=== PATIENT | male | born 1965 | race African-American/Black ===

== ENCOUNTER 2016-12-21 08:52 | Inpatient (IN) | payer OTHER ==
[2016-12-21 09:43] VITALS: BMI 31.0
--- NOTE | 2016-12-21 11:39 | HP ---
Admission ROS [facility] - [facility] Chief Complaint: I am here for rehab Allergies/Adverse Reactions: Allergies Allergy/AdvReac Type Severity Reaction Status Date / Time chicken derived Allergy Intermediate Rash Verified 12/21/16 11:04 Penicillins Allergy Intermediate Rash Verified 12/17/14 13:48 History of Present Illness: pt is a 51yr old male who was at a detox facility 12/15-12/20 2016 and is here now for rehab tx. Exam Limitations: No Limitations - Ebola screening Have you traveled outside of the country in the last 21 days: No Have you had contact with anyone from an Ebola affected area: No Have you been sick,other than usual withdrawal symptoms: No Do you have a fever: No - Review of Systems Constitutional: Changes in sleep EENT: reports: No Symptoms Reported Respiratory: reports: No Symptoms reported Cardiac: reports: No Symptoms Reported GI: reports: No Symptoms Reported : reports: No Symptoms Reported Musculoskeletal: reports: Back Pain Integumentary: reports: Other (chronic dermatities) Neuro: reports: Headache Endocrine: reports: No Symptoms Reported Hematology: reports: No Symptoms Reported Psychiatric: reports: Judgement Intact, Mood/Affect Appropiate, Orientated x3, Agitated, Anxious Other Systems: Reviewed and Negative Patient History - Patient Medical History Hx Anemia: No Hx Asthma: No Hx Chronic Obstructive Pulmonary Disease (COPD): No Hx Cancer: No Hx Cardiac Disorders: No Hx Congestive Heart Failure: No Hx Hypertension: No Hx Hypercholesterolemia: No Hx Pacemaker: No HX Cerebrovascular Accident: No Hx Seizures: Yes (alcohol related x2-last episode was in 2002) Hx Dementia: No Hx Diabetes: No Hx Gastrointestinal Disorders: No Hx Liver Disease: No Hx Genitourinary Disorders: No Hx Sexually Transmitted Disorders: No Hx Renal Disease (ESRD): No Hx Thyroid Disease: No Hx Human Immunodeficiency Virus (HIV): No (denies) Hx Hepatitis C: No (denies) Hx Depression: No Hx Suicide Attempt: No (denies) Hx Bipolar Disorder: No Hx Schizophrenia: No - Patient Surgical History Past Surgical History: No Hx Neurologic Surgery: No Hx Cataract Extraction: No Hx Cardiac Surgery: No Hx Lung Surgery: No Hx Breast Surgery: No Hx Breast Biopsy: No Hx Abdominal Surgery: No Hx Appendectomy: No Hx Cholecystectomy: No Hx Genitourinary Surgery: No Hx Section: No Hx Orthopedic Surgery: No Anesthesia Reaction: No - PPD History Previous Implant?: Yes Documented Results: Negative w/o proof PPD to be Administered?: Yes - Reproductive History Patient is a Female of Child Bearing Age (11 -55 yrs old): No - Smoking Cessation Smoking history: Current every day smoker Have you smoked in the past 12 months: Yes Aproximately how many cigarettes per day: 3 Cigars Per Day: 6 Hx Chewing Tobacco Use: No Initiated information on smoking cessation: Yes 'Breaking Loose' booklet given: 12/21/16 - Substance & Tx. History Hx Alcohol Use: Yes Hx Substance Use: Yes Substance Use Type: Alcohol, Cocaine Hx Substance Use Treatment: Yes (last detox [facility] 12/15-12/20) - Substances Abused Alcohol Route: Oral Frequency: Daily Amount used: 2 6pk beer Age of first use: 12 Date of Last Use: 12/21/16 Cocaine Route: Smoking Frequency: Daily Amount used: $50 Age of first use: 24 Date of Last Use: 12/20/16 Family Disease History - Family Disease History Family History: Denies Family Disease History: Other: Father () Admission Physical Exam [facility] - Vital Signs Vital Signs: Vital Signs - 24 hr 12/21/16 09:40 Temperature 97.0 F L Pulse Rate 73 Respiratory 18 Rate Blood Pressure 134/73 - Physical General Appearance: Yes: Within Normal Limits, Appropriately Dressed, Anxious HEENTM: Yes: Hearing grossly Normal, Normal ENT Inspection, Normal Voice Respiratory: Yes: Lungs Clear, Normal Breath Sounds, No Respiratory Distress Neck: Yes: No masses,lesions,Nodules Breast: Yes: Within Normal Limits Cardiology: Yes: Regular Rhythm, Regular Rate, S1, S2 Abdominal: Yes: Normal Bowel Sounds Genitourinary: Yes: Within Normal Limits Back: Yes: Normal Inspection Musculoskeletal: Yes: full range of Motion, Back pain Extremities: Yes: Normal Capillary Refill, Normal Inspection, Normal Range of Motion Neurological: Yes: Fully Oriented, Alert, Normal Response Integumentary: Yes: Normal Color, Other (dermatities to scalp) Lymphatic: Yes: Within Normal Limits - Diagnostic (1) Alcohol dependence Current Visit: No Status: Chronic (2) Cocaine dependence Current Visit: No Status: Chronic (3) Seborrheic eczema of scalp Current Visit: Yes Status: Chronic (4) Nicotine dependence Current Visit: Yes Status: Chronic Qualifiers: Nicotine product type: cigarettes Substance use status: uncomplicated Qualified Code(s): F17.210 - Nicotine dependence, cigarettes, uncomplicated Cleared for Admission [facility] - Detox or Rehab [facility] Level of Care: Medically Managed Claeared for Rehab Admission: Yes [facility] Breath Alcohol Content Breath Alcohol Content: 0.012 Urine Drug Screen - Results Drug Screen Negative: No Urine Drug Screen Results: TESSIE-Cocaine, BZO-Benzodiazepines
[2016-12-21] MEDS ORDERED: MAGNESIUM HYDROX 2400MG/30ML ORAL SUSPENSION 30 ML CUP PO PRN (11:43)
[2016-12-21] MEDS ORDERED: IBUPROFEN 400 MG TABLET (FP) PO PRN (11:43)
[2016-12-21] MEDS ORDERED: MAGNESIUM CITRATE 300 ML BOTTLE PO PRN (11:43)
[2016-12-21] MEDS ORDERED: guaiFENesin/D-METHORPHAN HB 10 ML UNIT-DOSE CUPS PO PRN (11:43)
[2016-12-21] MEDS ORDERED: hydrOXYzine PAMOATE 50 MG CAPSULE (FP) PO PRN (11:43)
[2016-12-21] MEDS ORDERED: NICOTINE POLACRILEX 2 MG GUM BUC PRN (11:43)
[2016-12-21] MEDS ORDERED: P-EPHED 60MG/TRIPROLIDI 2.5MG TABLET PO PRN (11:43)
[2016-12-21] MEDS ORDERED: ACETAMINOPHEN 325 MG TABLET (FP) PO PRN (11:43)
[2016-12-21] MEDS ORDERED: MENTHOL/PHENOL 1 EACH UD MM PRN (11:43)
[2016-12-21] MEDS ORDERED: LOPERAMIDE HCL 2 MG CAPSULE PO PRN (11:43)
[2016-12-21] MEDS ORDERED: MAG HYDROX/AL HYDROX/SIMETH 30 ML UNIT-DOSE CUP PO PRN (11:43)
[2016-12-21] MEDS ORDERED: SELENIUM SULFIDE 2.5% LOTION 4 OZ. TP SCH (11:45)
[2016-12-21] MEDS ORDERED: FLUOCINONIDE 0.05% TOP OINT (60 GM TUBE) TP SCH (11:45)
[2016-12-21] MEDS ORDERED: TUBERCULIN PPD 5 TU/0.1ML VIAL ID ONE (14:15)
[2016-12-21] MEDS: FLUOCINONIDE 0.05% TOP OINT (60 GM TUBE) TP SCH ×3 (14:28→23:31)
[2016-12-21 15:21] LABS: ALBUMIN 4.1 g/dl (3.4-5.0); ANION GAP 7 (8-16); BILIRUBIN,TOTAL 0.4 mg/dL (0.2-1.0); CALCIUM 8.8 mg/dL (8.5-10.1); CO2 31 mmol/L (21-32); GLUCOSE,RANDOM 85 mg/dL (74-106); TOT PROT 7.2 g/dl (6.4-8.2)
[2016-12-21 15:25] LABS: ALK PHOS 73 U/L (45-117); CREATININE 0.9 mg/dL (0.7-1.3); SGOT/AST 23 U/L (15-37); SGPT/ALT 34 U/L (12-78)
[2016-12-21 15:26] LABS: MCH 31.1 pg (25.7-33.7); MCHC 33.1 g/dl (32.0-35.9); MEAN CELL VOLUME 93.8 fl (80-96); MEAN PLT VOLUME 8.4 fl (7.5-11.1); PLATELET COUNT 255 K/MM3 (134-434); RDW 15.1 % (11.9-15.9); WHITE BLOOD COUNT 5.6 K/mm3 (4.0-10.0)
[2016-12-21 22:02] LABS: URINE APPEARANCE CLEAR; URINE BILIRUBIN NEGATIVE (NEGATIVE); URINE BLOOD NEGATIVE (NEGATIVE); URINE COLOR COLORLESS; URINE GLUCOSE (UA) NEGATIVE (NEGATIVE); URINE KETONE NEGATIVE (NEGATIVE); URINE LEUK ESTERASE NEGATIVE (NEGATIVE); URINE NITRITE NEGATIVE (NEGATIVE); URINE PROTEIN NEGATIVE (NEGATIVE); URINE UROBILINOGEN NEGATIVE mg/dL (0.2-1.0)
[2016-12-21] MEDS: THIAMINE HCL 100 MG TABLET (FP) PO SCH (23:32)
--- NOTE | 2016-12-22 06:42 | HP ---
Psychiatrist Admission - Data Date of interview: 12/22/16 Admission source: Self-referred Identifying data: This is the first [facility] admission for this 51 years old Black male, unemployed with no source of income, homeless Medical History: Signnificant for Seborrheic dermatitis and history of Alcohol- related seizure. Smokes 3 cigarettes daily Psychiatric History: Denies history of previous psychiatric treatment Physical/Sexual Abuse/Trauma History: Denies history of emotional, physical or sexual abuse as well as DV relationship. No service Additional Comment: Reports one previous misdemeanor arrests. No probation Vital Signs: Vital Signs - 24 hr 12/21/16 12/22/16 12/22/16 09:40 00:30 03:30 Temperature 97.0 F L Pulse Rate 73 Respiratory 18 18 18 Rate Blood Pressure 134/73 Allergies/Adverse Reactions: Allergies Allergy/AdvReac Type Severity Reaction Status Date / Time chicken derived Allergy Intermediate Rash Verified 12/21/16 11:04 Penicillins Allergy Intermediate Rash Verified 12/17/14 13:48 Date of last physical exam: 12/21/16 Concur with the findings of this exam: Yes - Substance Abuse/Tx History Hx Alcohol Use: Yes Hx Substance Use: Yes Substance Use Type: Alcohol (Started drinking alcohol at age 12, consumes 2x 6pk of beer daily. Last drink on 12/21/16), Cocaine (Started smoking crack cocaine at age 24, consumes $50 worth daily. Last smoked on 12/20/14) Hx Substance Use Treatment: Yes (12 previous inpt detox @ [facility] since 2000including 8 AMA's) - Admission Criteria Previous failed treatment: Yes Poor recovery environment: Yes Comorbidities: Yes Lacks judgement: Yes Mental Status Exam - Mental Status Exam Alert and Oriented to: Time, Place, Person Cognitive Function: Fair Patient Appearance: Well Groomed Mood: Hopeful, Euthymic Patient Behavior: Cooperative Speech Pattern: Clear Voice Loudness: Normal Thought Process: Intact, Goal Oriented Thought Disorder: Not Present Hallucinations: Denies Suicidal Ideation: Denies Homicidal Ideation: Denies Insight/Judgement: Fair Sleep: Poorly Appetite: Fair Muscle strength/Tone: Normal Gait/Station: Normal Psychiatric Findings - Problem List ([place] 1, 2,3) (1) Alcohol dependence Current Visit: No Status: Chronic (2) Cocaine dependence Current Visit: No Status: Chronic (3) Nicotine dependence Current Visit: Yes Status: Chronic Qualifiers: Nicotine product type: cigarettes Substance use status: uncomplicated Qualified Code(s): F17.210 - Nicotine dependence, cigarettes, uncomplicated (4) Substance-induced sleep disorder Current Visit: Yes Status: Acute (5) Seborrheic eczema of scalp Current Visit: Yes Status: Chronic (6) Seizure Current Visit: No Status: Acute - Initial Treatment Plan Initial Treatment Plan: Monitor progress
[2016-12-22] MEDS: PRENATAL VITAMINS W/ FOLIC ACID TABLET (FP) PO SCH (09:49)
[2016-12-22] MEDS: SELENIUM SULFIDE 2.5% LOTION 4 OZ. TP SCH (09:50)
[2016-12-22] MEDS: FLUOCINONIDE 0.05% TOP OINT (60 GM TUBE) TP SCH ×4 (09:50→21:28)
[2016-12-22] MEDS: NICOTINE 14 MG/24 HOURS TOPICAL PATCH TD SCH (09:50)
--- NOTE | 2016-12-22 20:02 | EKG ---
Test Reason : Blood Pressure : / mmHG Vent. Rate : 067 BPM Atrial Rate : 067 BPM P-R Int : 166 ms QRS Dur : 088 ms QT Int : 396 ms P-R-T Axes : 063 047 014 degrees QTc Int : 418 ms NORMAL SINUS RHYTHM SEPTAL INFARCT , AGE UNDETERMINED ABNORMAL ECG NO PREVIOUS ECGS AVAILABLE Confirmed by ELIEL SERRANO MD ([id number]) on 12/22/2016 8:01:44 PM Referred By: Elizabeth Hou Confirmed By:ELIEL SERRANO MD
[2016-12-22] MEDS: THIAMINE HCL 100 MG TABLET (FP) PO SCH (21:27)
[2016-12-22] MEDS: diphenhydrAMINE HCL 50 MG CAPSULE PO PRN (21:27)
[2016-12-23] MEDS: PRENATAL VITAMINS W/ FOLIC ACID TABLET (FP) PO SCH (09:47)
[2016-12-23] MEDS: NICOTINE 14 MG/24 HOURS TOPICAL PATCH TD SCH (09:48)
[2016-12-23] MEDS: SELENIUM SULFIDE 2.5% LOTION 4 OZ. TP SCH (09:48)
[2016-12-23] MEDS: FLUOCINONIDE 0.05% TOP OINT (60 GM TUBE) TP SCH ×4 (09:48→21:42)
[2016-12-23] MEDS: diphenhydrAMINE HCL 50 MG CAPSULE PO PRN (21:40)
[2016-12-23] MEDS: THIAMINE HCL 100 MG TABLET (FP) PO SCH (21:41)
[2016-12-24] MEDS: PRENATAL VITAMINS W/ FOLIC ACID TABLET (FP) PO SCH (09:56)
[2016-12-24] MEDS: NICOTINE 14 MG/24 HOURS TOPICAL PATCH TD SCH (09:57)
[2016-12-24] MEDS: FLUOCINONIDE 0.05% TOP OINT (60 GM TUBE) TP SCH ×4 (09:57→21:21)
[2016-12-24] MEDS: SELENIUM SULFIDE 2.5% LOTION 4 OZ. TP SCH (09:57)
[2016-12-24] MEDS: THIAMINE HCL 100 MG TABLET (FP) PO SCH (21:20)
[2016-12-24] MEDS: diphenhydrAMINE HCL 50 MG CAPSULE PO PRN (21:21)
[2016-12-25] MEDS ORDERED: PT OWN MED DRAWER 7, Y5N ONE ×2 (08:45→21:35)
[2016-12-25] MEDS: NICOTINE 14 MG/24 HOURS TOPICAL PATCH TD SCH (09:53)
[2016-12-25] MEDS: SELENIUM SULFIDE 2.5% LOTION 4 OZ. TP SCH (09:53)
[2016-12-25] MEDS: PRENATAL VITAMINS W/ FOLIC ACID TABLET (FP) PO SCH (09:53)
[2016-12-25] MEDS: FLUOCINONIDE 0.05% TOP OINT (60 GM TUBE) TP SCH ×4 (09:53→21:34)
[2016-12-25] MEDS: diphenhydrAMINE HCL 50 MG CAPSULE PO PRN (21:35)
[2016-12-25] MEDS: THIAMINE HCL 100 MG TABLET (FP) PO SCH (21:35)
[2016-12-26] MEDS: FLUOCINONIDE 0.05% TOP OINT (60 GM TUBE) TP SCH ×4 (09:40→21:38)
[2016-12-26] MEDS: PRENATAL VITAMINS W/ FOLIC ACID TABLET (FP) PO SCH (09:40)
[2016-12-26] MEDS: SELENIUM SULFIDE 2.5% LOTION 4 OZ. TP SCH (09:40)
[2016-12-26] MEDS: NICOTINE 14 MG/24 HOURS TOPICAL PATCH TD SCH (09:40)
[2016-12-26] MEDS: diphenhydrAMINE HCL 50 MG CAPSULE PO PRN (21:37)
[2016-12-26] MEDS: THIAMINE HCL 100 MG TABLET (FP) PO SCH (21:37)
[2016-12-27] MEDS: PRENATAL VITAMINS W/ FOLIC ACID TABLET (FP) PO SCH (10:04)
[2016-12-27] MEDS: SELENIUM SULFIDE 2.5% LOTION 4 OZ. TP SCH (10:04)
[2016-12-27] MEDS: FLUOCINONIDE 0.05% TOP OINT (60 GM TUBE) TP SCH ×4 (10:04→21:52)
[2016-12-27] MEDS: NICOTINE 14 MG/24 HOURS TOPICAL PATCH TD SCH (10:05)
[2016-12-27] MEDS: THIAMINE HCL 100 MG TABLET (FP) PO SCH (21:52)
[2016-12-27] MEDS: diphenhydrAMINE HCL 50 MG CAPSULE PO PRN (21:52)
[2016-12-28] MEDS: NICOTINE 14 MG/24 HOURS TOPICAL PATCH TD SCH (09:53)
[2016-12-28] MEDS: PRENATAL VITAMINS W/ FOLIC ACID TABLET (FP) PO SCH (09:53)
[2016-12-28] MEDS: SELENIUM SULFIDE 2.5% LOTION 4 OZ. TP SCH (09:53)
[2016-12-28] MEDS: FLUOCINONIDE 0.05% TOP OINT (60 GM TUBE) TP SCH ×4 (09:53→21:27)
[2016-12-28] MEDS: THIAMINE HCL 100 MG TABLET (FP) PO SCH (21:26)
[2016-12-28] MEDS: diphenhydrAMINE HCL 50 MG CAPSULE PO PRN (21:27)
[2016-12-29] MEDS: NICOTINE 14 MG/24 HOURS TOPICAL PATCH TD SCH (09:56)
[2016-12-29] MEDS: SELENIUM SULFIDE 2.5% LOTION 4 OZ. TP SCH (09:56)
[2016-12-29] MEDS: FLUOCINONIDE 0.05% TOP OINT (60 GM TUBE) TP SCH ×4 (09:56→21:59)
[2016-12-29] MEDS: PRENATAL VITAMINS W/ FOLIC ACID TABLET (FP) PO SCH (09:56)
[2016-12-29] MEDS: THIAMINE HCL 100 MG TABLET (FP) PO SCH (21:58)
[2016-12-29] MEDS: diphenhydrAMINE HCL 50 MG CAPSULE PO PRN (21:58)
[2016-12-30] MEDS: FLUOCINONIDE 0.05% TOP OINT (60 GM TUBE) TP SCH ×4 (09:53→22:02)
[2016-12-30] MEDS: PRENATAL VITAMINS W/ FOLIC ACID TABLET (FP) PO SCH (09:53)
[2016-12-30] MEDS: SELENIUM SULFIDE 2.5% LOTION 4 OZ. TP SCH (09:53)
[2016-12-30] MEDS: NICOTINE 14 MG/24 HOURS TOPICAL PATCH TD SCH (09:53)
[2016-12-30] MEDS: THIAMINE HCL 100 MG TABLET (FP) PO SCH (22:02)
[2016-12-30] MEDS: diphenhydrAMINE HCL 50 MG CAPSULE PO PRN (22:02)
[2016-12-31] MEDS: PRENATAL VITAMINS W/ FOLIC ACID TABLET (FP) PO SCH (10:26)
[2016-12-31] MEDS: NICOTINE 14 MG/24 HOURS TOPICAL PATCH TD SCH (10:26)
[2016-12-31] MEDS: FLUOCINONIDE 0.05% TOP OINT (60 GM TUBE) TP SCH ×4 (10:26→21:22)
[2016-12-31] MEDS: SELENIUM SULFIDE 2.5% LOTION 4 OZ. TP SCH (10:27)
[2016-12-31] MEDS: THIAMINE HCL 100 MG TABLET (FP) PO SCH (21:22)
[2016-12-31] MEDS: diphenhydrAMINE HCL 50 MG CAPSULE PO PRN (21:22)
[2017-01-01] MEDS: SELENIUM SULFIDE 2.5% LOTION 4 OZ. TP SCH (09:41)
[2017-01-01] MEDS: PRENATAL VITAMINS W/ FOLIC ACID TABLET (FP) PO SCH (09:41)
[2017-01-01] MEDS: FLUOCINONIDE 0.05% TOP OINT (60 GM TUBE) TP SCH ×4 (09:41→23:06)
[2017-01-01] MEDS: NICOTINE 14 MG/24 HOURS TOPICAL PATCH TD SCH (09:41)
[2017-01-01] MEDS: THIAMINE HCL 100 MG TABLET (FP) PO SCH (21:53)
[2017-01-01] MEDS: diphenhydrAMINE HCL 50 MG CAPSULE PO PRN (21:54)
[2017-01-02] MEDS: PRENATAL VITAMINS W/ FOLIC ACID TABLET (FP) PO SCH (09:41)
[2017-01-02] MEDS: NICOTINE 14 MG/24 HOURS TOPICAL PATCH TD SCH (09:41)
[2017-01-02] MEDS: SELENIUM SULFIDE 2.5% LOTION 4 OZ. TP SCH (09:42)
[2017-01-02] MEDS: FLUOCINONIDE 0.05% TOP OINT (60 GM TUBE) TP SCH ×4 (09:42→21:34)
[2017-01-02] MEDS: THIAMINE HCL 100 MG TABLET (FP) PO SCH (21:34)
[2017-01-02] MEDS: diphenhydrAMINE HCL 50 MG CAPSULE PO PRN (21:34)
[2017-01-03] MEDS: PRENATAL VITAMINS W/ FOLIC ACID TABLET (FP) PO SCH (10:53)
[2017-01-03] MEDS: NICOTINE 14 MG/24 HOURS TOPICAL PATCH TD SCH (10:54)
[2017-01-03] MEDS: FLUOCINONIDE 0.05% TOP OINT (60 GM TUBE) TP SCH ×3 (10:54→21:34)
[2017-01-03] MEDS: SELENIUM SULFIDE 2.5% LOTION 4 OZ. TP SCH (10:54)
--- NOTE | 2017-01-03 14:14 | PN ---
[facility] Progress Note Note: rash in the right groin,itching,using lidex 0intment before contact dermatitis lidex ointment 0.05% bid
[2017-01-03] MEDS: diphenhydrAMINE HCL 50 MG CAPSULE PO PRN (21:34)
[2017-01-03] MEDS: THIAMINE HCL 100 MG TABLET (FP) PO SCH (21:34)
[2017-01-04 06:53] VITALS: BP 124/76; PULSE 60; TEMP 97.9
[2017-01-04] MEDS: FLUOCINONIDE 0.05% TOP OINT (60 GM TUBE) TP SCH (09:12)
[2017-01-04] MEDS: NICOTINE 14 MG/24 HOURS TOPICAL PATCH TD SCH (09:12)
[2017-01-04] MEDS: PRENATAL VITAMINS W/ FOLIC ACID TABLET (FP) PO SCH (09:12)
[2017-01-04] MEDS: SELENIUM SULFIDE 2.5% LOTION 4 OZ. TP SCH (09:13)
--- NOTE | 2017-01-04 09:44 | PN ---
Psychiatric Progress Note Vital Signs: Vital Signs Period Temp Pulse Resp BP Sys/Leal Pulse Ox Last 24 Hr 97.9 F 60 18-18 124/76 Date of Session: 01/04/17 Chief Complaint:: discharge visit HPI: Patient has addressed alcohol, cocaine, nicotine dependenece comorbid substance induced sleep disorder. ROS: Seborrheic dermatitis and history of Alcohol-related seizure. Current Medications: Active Medications Generic Name Dose Route Start Last Admin Trade Name Freq PRN Reason Stop Dose Admin Acetaminophen 650 mg 12/21/16 11:43 Tylenol - PO Q4H PRN PAIN Al Hydroxide/Mg Hydroxide 30 ml 12/21/16 11:43 Mylanta Oral Suspension - PO Q6H PRN DYSPEPSIA Diphenhydramine HCl 50 mg 12/21/16 11:43 01/03/17 21:34 Benadryl - PO 50 mg HSMR1 PRN Administration INSOMNIA Eucalyptus/Menthol/Phenol/Sorbitol 1 each 12/21/16 11:43 Cepastat Lozenge - MM Q4H PRN SORE THROAT Fluocinonide 1 applic 01/03/17 22:00 01/04/17 09:12 Lidex 0.05% Ointment - TP 1 applic BID JOSSE Administration Guaifenesin 10 ml 12/21/16 11:43 Robitussin Dm - PO Q6H PRN COUGH Hydroxyzine Pamoate 50 mg 12/21/16 11:43 Vistaril - PO Q4H PRN AGITATION Ibuprofen 400 mg 12/21/16 11:43 01/03/17 14:48 Motrin - PO 400 mg Q6H PRN Administration SEVERE PAIN Loperamide HCl 4 mg 12/21/16 11:43 Imodium - PO Q6H PRN DIARRHEA Magnesium Citrate 300 ml 12/21/16 11:43 Citroma - PO Q48H PRN CONSTIPATION Magnesium Hydroxide 30 ml 12/21/16 11:43 Milk Of Magnesia - PO DAILY PRN CONSTIPATION Nicotine 14 mg 12/22/16 10:00 01/04/17 09:12 Nicoderm Patch - TD Not Given DAILY JOSSE Nicotine Polacrilex 2 mg 12/21/16 11:43 Nicorette Gum - BUC Q2H PRN NICOTINE REPLACEMENT RX Multivit/Folic Acid/Iron 1 tab 12/22/16 10:00 01/04/17 09:12 Vitamins (Sjr) - PO 1 tab DAILY JOSSE Administration Pseudoephedrine/Triprolidine 1 combo 12/21/16 11:43 Actifed - PO TID PRN NASAL CONGESTION Selenium Sulfide 1 applic 12/22/16 10:00 01/04/17 09:13 Selsun 2.5% Lotion - TP Not Given DAILY JOSSE Thiamine HCl 100 mg 12/21/16 22:00 01/03/17 21:34 Vitamin B1 - PO 100 mg HS JOSSE Administration Current Side Effect: No Lab tests ordered: No Lab tests reviewed: Yes Provider note:: Patient has completed today his treatment and met his goals, will continue to address his issues at the next level of care. He gained insights into importance to continue maintain abstinence, changing attitudes and utilize supports available to prevent relapses. Patient is stable for discharge today. Total face to face time:: 15 Mental Status Exam - Mental Status Exam Alert and Oriented to: Time, Place, Person Cognitive Function: Good Patient Appearance: Well Groomed Mood: Hopeful Affect: Appropriate, Mood Congruent Patient Behavior: Appropriate, Cooperative Speech Pattern: Clear, Appropriate Voice Loudness: Normal Thought Process: Intact, Goal Oriented Thought Disorder: Not Present Hallucinations: Denies Suicidal Ideation: Denies Homicidal Ideation: Denies Insight/Judgement: Fair Sleep: Fair Appetite: Good Muscle strength/Tone: Normal Gait/Station: Normal Psychiatric Treatment Plan - Problem List (2) Nicotine dependence Qualifiers: Nicotine product type: cigarettes Substance use status: uncomplicated Qualified Code(s): F17.210 - Nicotine dependence, cigarettes, uncomplicated
== END 2017-01-04 10:00 | disposition home or self-care (01) | DRG 772 ==
LOC: YASAS 08:52 → Y3W 11:59
PROVIDERS: ADMIT Psychiatry & Neurology Psychiatry; ATTEND Psychiatry & Neurology Psychiatry
PROC: HZ42ZZZ Group Counseling for Substance Abuse Treatment, Cognitive-Behavioral (ICD-10-PCS; principal; 2017-01-04)
DX: F10.230 Alcohol dependence with withdrawal, uncomplicated (principal); F14.20 Cocaine dependence, uncomplicated; F17.210 Nicotine dependence, cigarettes, uncomplicated; F10.282 Alcohol dependence with alcohol-induced sleep disorder; L21.8 Other seborrheic dermatitis; Z86.69 Personal history of other diseases of the nervous system and sense organs
CPT/HCPCS: 36415; 80053; 81003; 85027; 86593; 93005; 93010

== ENCOUNTER 2018-10-01 11:42 | Inpatient (IN) | payer OTHER ==
[2018-10-01 15:18] VITALS: BMI 26.6
--- NOTE | 2018-10-01 20:58 | HP ---
CIWA Score Nausea/Vomitin-Mild Nausea/No Vomiting Muscle Tremors: 4-Moderate,w/Arms Extend Anxiety: 3 Agitation: 2 Paroxysmal Sweats: 3 Orientation: 0-Oriented Tacttile Disturbances: 0-None Auditory Disturbances: 0-None Visual Disturbances: 0-None Headache: 4-Moderately Severe CIWA-Ar Total Score: 17 - Admission Criteria [facility] Guidelines: Admission for Medically Managed Detox: Requires at least one of the followin. CIWA greater than 12 2. Seizures within the past 24 hours 3. Delirium tremens within the past 24 hours 4. Hallucinations within the past 24 hours 5. Acute intervention needed for co occurring medical disorder 6. Acute intervention needed for co occurring psychiatric disorder 7. Severe withdrawal that cannot be handled at a lower level of care (continued vomiting, continued diarrhea, abnormal vital signs) requiring intravenous medication and/or fluids 8. Admission ROS S - [facility] Chief Complaint: Alcohol withdrawal symptoms Allergies/Adverse Reactions: Allergies Allergy/AdvReac Type Severity Reaction Status Date / Time chicken derived Allergy Intermediate Rash Verified 10/01/18 20:16 Penicillins Allergy Intermediate Rash Verified 10/01/18 20:16 History of Present Illness: 53 years old male with a long history of alcohol dependence is seeking admission to detox. Patient has been in previous detox and reports 3 months of sobriety. He has medical history of seizures and seborrheic dermatitis. He denies suicidal ideation at this time. Exam Limitations: No Limitations - Ebola screening Have you traveled outside of the country in the last 21 days: No (N) Have you had contact with anyone from an Ebola affected area: No Do you have a fever: No - Review of Systems Constitutional: Chills, Loss of Appetite, Malaise, Changes in sleep EENT: reports: No Symptoms Reported Respiratory: reports: No Symptoms reported Cardiac: reports: No Symptoms Reported GI: reports: Diarrhea (x 4), Nausea, Poor Appetite, Poor Fluid Intake, Abdominal cramping : reports: No Symptoms Reported Musculoskeletal: reports: Back Pain, Joint Pain, Muscle Pain Integumentary: reports: Dryness, Flushing Neuro: reports: Headache, Tremors Endocrine: reports: No Symptoms Reported Hematology: reports: No Symptoms Reported Psychiatric: reports: Mood/Affect Appropiate, Orientated x3 Other Systems: Reviewed and Negative Patient History - Patient Medical History Hx Anemia: No Hx Asthma: No Hx Chronic Obstructive Pulmonary Disease (COPD): No Hx Cancer: No Hx Cardiac Disorders: No Hx Congestive Heart Failure: No Hx Hypertension: No Hx Hypercholesterolemia: No Hx Pacemaker: No HX Cerebrovascular Accident: No Hx Seizures: Yes (alcohol related x2-last episode was in 2002) Hx Dementia: No Hx Diabetes: No Hx Gastrointestinal Disorders: No Hx Liver Disease: No Hx Genitourinary Disorders: No Hx Sexually Transmitted Disorders: No Hx Renal Disease (ESRD): No Hx Thyroid Disease: No Hx Human Immunodeficiency Virus (HIV): No (denies) Hx Hepatitis C: No (denies) Hx Depression: No Hx Suicide Attempt: No Hx Bipolar Disorder: No Hx Schizophrenia: No Other Medical History: Dermatitis - Patient Surgical History Past Surgical History: No Hx Neurologic Surgery: No Hx Cataract Extraction: No Hx Cardiac Surgery: No Hx Lung Surgery: No Hx Abdominal Surgery: No Hx Appendectomy: No Hx Cholecystectomy: No Hx Genitourinary Surgery: No Hx Orthopedic Surgery: No Anesthesia Reaction: No - PPD History Previous Implant?: Yes Documented Results: Negative w/proof Implanted On [facility] Admission?: Yes Date: 12/23/16 Results: 0 mm PPD to be Administered?: Yes - Reproductive History Patient is a Female of Child Bearing Age (11 -55 yrs old): No (Male) - Smoking Cessation Smoking history: Former smoker Have you smoked in the past 12 months: No Aproximately how many cigarettes per day: 0 Cigars Per Day: 6 Hx Chewing Tobacco Use: No Initiated information on smoking cessation: No - Substance & Tx. History Hx Alcohol Use: Yes Hx Substance Use: Yes Substance Use Type: Alcohol, Cocaine, Marijuana Hx Substance Use Treatment: No - Substances abused Alprazolam (Xanax) Frequency: Daily Amount used: 3 tablets Age of first use: 51 Date of last use: 10/01/18 Alcohol Substance route: Oral Frequency: Daily Amount used: BEER 3 x 6 PACKS; VODKA - 1 LITER Age of first use: 12 Date of last use: 10/01/18 Family Disease History - Family Disease History Family History: Denies Admission Physical Exam [facility] - Vital Signs Vital Signs: Vital Signs - 24 hr 10/01/18 10/01/18 15:15 20:18 Temperature 97.4 F L 97.4 F L Pulse Rate 74 74 Respiratory 18 18 Rate Blood Pressure 119/67 119/67 - Physical General Appearance: Yes: Moderate Distress, Tremorous, Irritable, Anxious HEENTM: Yes: Normal ENT Inspection, Normocephalic, Normal Voice, ENMA Respiratory: Yes: Lungs Clear, Normal Breath Sounds, No Respiratory Distress Neck: Yes: Supple Breast: Yes: Breast Exam Deferred Cardiology: Yes: Regular Rhythm, Regular Rate Abdominal: Yes: Within Normal Limits Genitourinary: Yes: Within Normal Limits Back: Yes: Normal Inspection Musculoskeletal: Yes: Back pain, Muscle Pain, Muscle weakness Extremities: Yes: Tremors Neurological: Yes: Alert, Normal Mood/Affect Integumentary: Yes: Warm Lymphatic: Yes: Within Normal Limits - Diagnostic (1) Alcohol dependence with withdrawal Current Visit: Yes Status: Chronic Qualifiers: Complication of substance-induced condition: with unspecified complication Qualified Code(s): F10.239 - Alcohol dependence with withdrawal, unspecified (2) Cannabis dependence Current Visit: Yes Status: Chronic (3) Seizure Current Visit: No Status: Chronic (4) Cocaine dependence Current Visit: Yes Status: Chronic (5) Seborrheic eczema of scalp Current Visit: Yes Status: Chronic Cleared for Admission [facility] - Detox or Rehab [facility] Level of Care: Medically Managed Detox Regimen/Protocol: Librium Breathalyzer - Breathalyzer Breathalyzer: 0 Urine Drug Screen - Test Device Lot number: [id number] Expiration date: 06/08/20 - Control Is test valid?: Yes - Results Drug screen NEGATIVE: No Urine drug screen results: THC-Marijuana, TESSIE-Cocaine, BZO-Benzodiazepines Inpatient Rehab Admission - Rehab Decision to Admit Inpatient rehab admission?: No
[2018-10-01] MEDS ORDERED: MAG HYDROX/AL HYDROX/SIMETH 30 ML UNIT-DOSE CUP PO PRN (21:17)
[2018-10-01] MEDS ORDERED: METHOCARBAMOL 500 MG TABLET PO PRN (21:17)
[2018-10-01] MEDS ORDERED: MENTHOL/PHENOL 1 EACH UD MM PRN (21:17)
[2018-10-01] MEDS ORDERED: hydrOXYzine PAMOATE 25 MG CAPSULE (FP) PO PRN (21:17)
[2018-10-01] MEDS ORDERED: BISMUTH SUBSALICYLATE 524 MG/30 ML UD PO PRN (21:17)
[2018-10-01] MEDS ORDERED: chlordiazePOXIDE HCL 25 MG CAPSULE PO PRN (21:17)
[2018-10-01] MEDS ORDERED: MAGNESIUM HYDROX 2400MG/30ML ORAL SUSPENSION 30 ML CUP PO PRN (21:17)
[2018-10-01] MEDS ORDERED: ACETAMINOPHEN 325 MG TABLET (FP) PO PRN ×2 (21:17)
[2018-10-01] MEDS ORDERED: MAGNESIUM CITRATE 300 ML BOTTLE PO PRN (21:17)
[2018-10-01] MEDS: MELATONIN 5 MG TABLETS PO PRN (22:42)
[2018-10-01] MEDS: THIAMINE HCL 100 MG TABLET (FP) PO SCH (22:42)
[2018-10-01] MEDS: chlordiazePOXIDE HCL 25 MG CAPSULE PO SCH (22:44)
[2018-10-02] MEDS: chlordiazePOXIDE HCL 25 MG CAPSULE PO SCH ×4 (06:10→22:24)
[2018-10-02 09:54] LABS: HEMATOCRIT 42.2 % (35.4-49); HEMOGLOBIN 14.1 GM/dL (11.7-16.9); MCH 31.3 pg (25.7-33.7); MCHC 33.4 g/dl (32.0-35.9); MEAN CELL VOLUME 93.8 fl (80-96); MEAN PLT VOLUME 8.4 fl (7.5-11.1); PLATELET COUNT 304 K/MM3 (134-434); RBC 4.49 M/mm3 (4.00-5.60); RDW 14.6 % (11.9-15.9); WHITE BLOOD COUNT 4.1 K/mm3 (4.0-10.0)
--- NOTE | 2018-10-02 10:13 | PN ---
S CIWA - CIWA Score Nausea/Vomitin Muscle Tremors: 2 Anxiety: 1-Mildly Anxious Agitation: 0-Normal Activity Paroxysmal Sweats: 2 Orientation: 0-Oriented Tacttile Disturbances: 1-Very Mild Itch/Numbness Auditory Disturbances: 0-None Visual Disturbances: 0-None Headache: 3-Moderate CIWA-Ar Total Score: 12 [facility] Progress Note (SOAP) Subjective: c/o of nausea and diarrhea, headache, back pain, itchy skin. Denies visual changes or vertigo. Objective: 10/02/18 10:13 Vital Signs Temperature 97.9 F 10/01/18 22:13 Pulse Rate 68 10/01/18 22:13 Respiratory Rate 17 10/02/18 03:30 Blood Pressure 129/87 10/01/18 22:13 O2 Sat by Pulse Oximetry (%) Laboratory Last Values WBC 4.1 K/mm3 (4.0-10.0) 10/02/18 07:50 RBC 4.49 M/mm3 (4.00-5.60) 10/02/18 07:50 Hgb 14.1 GM/dL (11.7-16.9) 10/02/18 07:50 Hct 42.2 % (35.4-49) 10/02/18 07:50 MCV 93.8 fl (80-96) 10/02/18 07:50 MCH 31.3 pg (25.7-33.7) 10/02/18 07:50 MCHC 33.4 g/dl (32.0-35.9) 10/02/18 07:50 RDW 14.6 % (11.9-15.9) 10/02/18 07:50 Plt Count 304 K/MM3 (134-434) 10/02/18 07:50 MPV 8.4 fl (7.5-11.1) 10/02/18 07:50 labs pending Assessment: 10/02/18 11:16 Aox3 no acute distress, irritable no adventitious breath sounds skin dry full ROM, no gait abnormality withdrawal sx increase PO fluids ibuprofen prn for headache hydrocortisone TP for skin pruritis continue detox continue to monitor
[2018-10-02] MEDS: PRENATAL VITAMINS W/ FOLIC ACID TABLET (FP) PO SCH (10:14)
[2018-10-02 10:29] LABS: ALBUMIN 3.4 g/dl (3.4-5.0); BILIRUBIN,TOTAL 1.1 mg/dL (0.2-1); CALCIUM 8.9 mg/dL (8.5-10.1); CREATININE 0.9 mg/dL (0.55-1.3); POTASSIUM 4.2 mmol/L (3.5-5.1); TOT PROT 6.3 g/dl (6.4-8.2)
[2018-10-02] MEDS ORDERED: HYDROCORTISONE 1% TOPICAL OINT 30 GM TUBE TP PRN (10:36)
[2018-10-02] MEDS ORDERED: BACITRACIN 0.9 GM PACKET TP ONE (12:12)
[2018-10-02] MEDS: MELATONIN 5 MG TABLETS PO PRN (22:24)
[2018-10-02] MEDS: THIAMINE HCL 100 MG TABLET (FP) PO SCH (22:24)
[2018-10-03] MEDS: chlordiazePOXIDE HCL 25 MG CAPSULE PO SCH ×3 (06:23→18:39)
--- NOTE | 2018-10-03 09:25 | PN ---
BHS Progress Note (SOAP) Subjective: alert,irritable,anxious,interrupted sleep,eczema Objective: 10/03/18 09:24 Vital Signs Temperature 98.6 F 10/03/18 09:20 Pulse Rate 65 10/03/18 09:20 Respiratory Rate 18 10/03/18 09:20 Blood Pressure 106/61 10/03/18 09:20 O2 Sat by Pulse Oximetry (%) Assessment: 10/03/18 09:24 withdrawal symptom Plan: continue detox
[2018-10-03] MEDS ORDERED: SELENIUM SULFIDE 2.5% LOTION 4 OZ. TP SCH (10:00)
[2018-10-03] MEDS: PRENATAL VITAMINS W/ FOLIC ACID TABLET (FP) PO SCH (10:19)
[2018-10-03] MEDS: FLUOCINONIDE 0.05% TOP OINT (60 GM TUBE) TP SCH ×2 (10:20→22:18)
[2018-10-03] MEDS: SELENIUM SULFIDE 2.5% LOTION 4 OZ. TP SCH (10:20)
[2018-10-03] MEDS: IBUPROFEN 400 MG TABLET (FP) PO PRN (19:47)
[2018-10-03] MEDS: chlordiazePOXIDE HCL 10 MG CAPSULE PO SCH (22:16)
[2018-10-03] MEDS: THIAMINE HCL 100 MG TABLET (FP) PO SCH (22:16)
[2018-10-03] MEDS: MELATONIN 5 MG TABLETS PO PRN (22:17)
[2018-10-03] MEDS ORDERED: chlordiazePOXIDE HCL 10 MG CAPSULE PO PRN (23:00)
[2018-10-04] MEDS: chlordiazePOXIDE HCL 10 MG CAPSULE PO SCH ×4 (06:19→22:17)
[2018-10-04] MEDS: PRENATAL VITAMINS W/ FOLIC ACID TABLET (FP) PO SCH (10:16)
[2018-10-04] MEDS: FLUOCINONIDE 0.05% TOP OINT (60 GM TUBE) TP SCH ×2 (10:17→22:18)
[2018-10-04] MEDS: SELENIUM SULFIDE 2.5% LOTION 4 OZ. TP SCH (10:17)
--- NOTE | 2018-10-04 17:17 | EKG ---
Test Reason : Blood Pressure : / mmHG Vent. Rate : 060 BPM Atrial Rate : 060 BPM P-R Int : 168 ms QRS Dur : 086 ms QT Int : 430 ms P-R-T Axes : 051 034 018 degrees QTc Int : 430 ms NORMAL SINUS RHYTHM NORMAL ECG WHEN COMPARED WITH ECG OF 21-DEC-2016 14:16, NO SIGNIFICANT CHANGE WAS FOUND Confirmed by TEODORO ESTRADA MD ([id number]) on 10/04/2018 5:16:43 PM Referred By: Confirmed By:TEODORO ESTRADA MD
[2018-10-04] MEDS: THIAMINE HCL 100 MG TABLET (FP) PO SCH (22:17)
[2018-10-04] MEDS: MELATONIN 5 MG TABLETS PO PRN (22:21)
--- NOTE | 2018-10-05 09:49 | PN ---
BHS COWS - Scale Resting Pulse: 0= [place] 80 or Below Sweatin= Chills/Flushing Restless Observation: 1= Difficult to Sit Still Pupil Size: 1= Pupils >than Normal Bone or Joint Aches: 2= Severe Diffuse Aches Runny Nose/ Eye Tearin= Nasal Congestion GI Upset > 30mins: 2= Nausea/Diarrhea Tremor Observation of Outstretched Hands: 2= Slight Tremor Visible Yawning Observation: 1= 1-2x During Session Anxiety or Irritability: 2=Irritable/Anxious Goose Flesh Skin: 0=Smooth Skin COWS Score: 13 BHS Progress Note (SOAP) Subjective: alert,irritable,anxious,interrupted sleep,tremor Objective: 10/05/18 09:56 t97.9,p62,bp 101/58,r18 Assessment: 10/05/18 09:57 withdrawal symptom Plan: continue detox
--- NOTE | 2018-10-05 10:08 | PN ---
BHS CIWA - CIWA Score Nausea/Vomitin Muscle Tremors: 2 Anxiety: 2 Agitation: 2 Paroxysmal Sweats: 1-Minimal Palms Moist Orientation: 0-Oriented Tacttile Disturbances: 1-Very Mild Itch/Numbness Auditory Disturbances: 1-Very Mild Visual Disturbances: 0-None Headache: 2-Mild CIWA-Ar Total Score: 13 BHS Progress Note (SOAP) Subjective: alert,irritable,anxious,interrupted sleep,tremor Objective: 10/05/18 10:06 t97.7,p61,r18,bp143/95 Assessment: 10/05/18 10:06 withdrawal symptom Plan: cotinue detox
[2018-10-05] MEDS: PRENATAL VITAMINS W/ FOLIC ACID TABLET (FP) PO SCH (10:28)
[2018-10-05] MEDS: chlordiazePOXIDE HCL 10 MG CAPSULE PO SCH ×2 (10:28→22:11)
[2018-10-05] MEDS: FLUOCINONIDE 0.05% TOP OINT (60 GM TUBE) TP SCH ×2 (10:41→22:12)
[2018-10-05] MEDS: SELENIUM SULFIDE 2.5% LOTION 4 OZ. TP SCH (10:41)
[2018-10-05 17:10] VITALS: BP 112/73; PULSE 63; TEMP 98.2
[2018-10-05] MEDS: THIAMINE HCL 100 MG TABLET (FP) PO SCH (22:11)
[2018-10-05] MEDS: MELATONIN 5 MG TABLETS PO PRN (22:11)
[2018-10-05] MEDS: IBUPROFEN 400 MG TABLET (FP) PO PRN (22:15)
--- NOTE | 2018-10-06 08:32 | DS ---
[facility] Detox Discharge Summary Admission Date: 10/01/18 Discharge Date: 10/06/18 - History Present History: Alcohol Dependence, Cannabis Dependence, Cocaine Dependence - Physical Exam Results Vital Signs: Vital Signs Temperature 98.2 F 10/05/18 17:09 Pulse Rate 63 10/05/18 17:09 Respiratory Rate 18 10/06/18 03:30 Blood Pressure 112/73 10/05/18 17:09 O2 Sat by Pulse Oximetry (%) - Treatment Hospital Course: Detox Protocol Followed, Detoxed Safely, Responded well, Discharged Condition Good, Rehab Referral Accepted - Medication Discharge Medications: Ambulatory Orders Fluocinonide 0.05% Oin [Lidex 0.05% Ointment -] 1 applic TP BID #1 applic Selenium Sulfide [Selsun 2.5% Lotion -] 1 applic TP WEEKLY #1 bottle 01/04/17 - AMA Did Patient Leave Against Medical Advice: No (referred to [facility])
== END 2018-10-06 09:13 | disposition home or self-care (01) | DRG 774 ==
LOC: YASAS 11:42 → Y6N 20:30
PROVIDERS: ADMIT Surgery; ATTEND Surgery
PROC: HZ2ZZZZ Detoxification Services for Substance Abuse Treatment (ICD-10-PCS; principal; 2018-10-01)
DX: F10.230 Alcohol dependence with withdrawal, uncomplicated (principal); F13.20 Sedative, hypnotic or anxiolytic dependence, uncomplicated; F14.20 Cocaine dependence, uncomplicated; F12.20 Cannabis dependence, uncomplicated; L21.9 Seborrheic dermatitis, unspecified; Z87.891 Personal history of nicotine dependence; Z86.69 Personal history of other diseases of the nervous system and sense organs; Z88.0 Allergy status to penicillin
CPT/HCPCS: 36415; 80053; 85027; 86593; 93005; 93010

== ENCOUNTER 2018-11-26 10:55 | Inpatient (IN) | payer OTHER ==
[2018-11-26 11:36] VITALS: BMI 29.5
--- NOTE | 2018-11-26 12:23 | HP ---
CIWA Score Nausea/Vomitin Muscle Tremors: 3 Anxiety: 3 Agitation: 2 Paroxysmal Sweats: No Perspiration Orientation: 0-Oriented Tacttile Disturbances: 2-Mild Itch/Numbness/Burn Auditory Disturbances: 0-None Visual Disturbances: 0-None Headache: 2-Mild CIWA-Ar Total Score: 15 - Admission Criteria OASAS Guidelines: Admission for Medically Managed Detox: Requires at least one of the followin. CIWA greater than 12 2. Seizures within the past 24 hours 3. Delirium tremens within the past 24 hours 4. Hallucinations within the past 24 hours 5. Acute intervention needed for co occurring medical disorder 6. Acute intervention needed for co occurring psychiatric disorder 7. Severe withdrawal that cannot be handled at a lower level of care (continued vomiting, continued diarrhea, abnormal vital signs) requiring intravenous medication and/or fluids 8. Patient presents the following: CIWA greater than 12 Admission Criteria Met: Admission criteria met Admission ROS S - HPI Chief Complaint: i need to stop Allergies/Adverse Reactions: Allergies Allergy/AdvReac Type Severity Reaction Status Date / Time chicken derived Allergy Intermediate Rash Verified 11/26/18 11:27 Penicillins Allergy Intermediate Rash Verified 11/26/18 11:27 History of Present Illness: 53 YO MALE 30+ YEAR HO ETOH DEP 1 PINT + 6 BEERS DAILY NO SIGNIFICANT PERIOD OF ABSTINENCE - Ebola screening Have you traveled outside of the country in the last 21 days: No (N) Have you had contact with anyone from an Ebola affected area: No Do you have a fever: No - Review of Systems Constitutional: No Symptoms Reported EENT: reports: No Symptoms Reported Respiratory: reports: No Symptoms reported Cardiac: reports: No Symptoms Reported GI: reports: Nausea, Abdominal cramping : reports: No Symptoms Reported Musculoskeletal: reports: No Symptoms Reported Integumentary: reports: No Symptoms Reported Neuro: reports: No Symptoms reported Endocrine: reports: No Symptoms Reported Psychiatric: reports: No Sypmtoms Reported, Judgement Intact, Mood/Affect Appropiate, Orientated x3 Patient History - Patient Medical History Hx Anemia: No Hx Asthma: No Hx Chronic Obstructive Pulmonary Disease (COPD): No Hx Cancer: No Hx Cardiac Disorders: No Hx Congestive Heart Failure: No Hx Hypertension: No Hx Hypercholesterolemia: No Hx Pacemaker: No HX Cerebrovascular Accident: No Hx Seizures: Yes (alcohol related x2-last episode was in 2002) Hx Dementia: No Hx Diabetes: No Hx Gastrointestinal Disorders: No Hx Liver Disease: No Hx Genitourinary Disorders: No Hx Sexually Transmitted Disorders: No Hx Renal Disease (ESRD): No Hx Thyroid Disease: No Hx Human Immunodeficiency Virus (HIV): No (denies) Hx Hepatitis C: No (denies) Hx Depression: No Hx Suicide Attempt: No Hx Bipolar Disorder: No Hx Schizophrenia: No - Patient Surgical History Past Surgical History: No Hx Neurologic Surgery: No Hx Cataract Extraction: No Hx Cardiac Surgery: No Hx Lung Surgery: No Hx Breast Surgery: No Hx Breast Biopsy: No Hx Abdominal Surgery: No Hx Appendectomy: No Hx Cholecystectomy: No Hx Genitourinary Surgery: No Hx Section: No Hx Orthopedic Surgery: No Anesthesia Reaction: No - PPD History Date: 10/03/18 Results: 0 mm - Smoking Cessation Smoking history: Former smoker Have you smoked in the past 12 months: No Aproximately how many cigarettes per day: 0 Cigars Per Day: 6 Hx Chewing Tobacco Use: No Initiated information on smoking cessation: Yes 'Breaking Loose' booklet given: 11/26/18 - Substances abused Alprazolam (Xanax) Substance route: Oral Frequency: Daily Amount used: 3 tablets Age of first use: 51 Date of last use: 11/25/18 Alcohol Substance route: Oral Frequency: Daily Amount used: BEER 3 x 6 PACKS; VODKA - 1 LITER Age of first use: 12 Date of last use: 11/26/18 Family Disease History - Family Disease History Family Disease History: Other: Father () Admission Physical Exam [facility] - Vital Signs Vital Signs: Vital Signs - 24 hr 11/26/18 11/26/18 11:28 11:56 Temperature 97.6 F 97.6 F Pulse Rate 81 81 Respiratory 18 18 Rate Blood Pressure 112/69 112/69 - Physical General Appearance: Yes: Tremorous, Sweating, Anxious HEENTM: Yes: EOMI, Normocephalic Respiratory: Yes: Within Normal Limits, Chest Non-Tender, Lungs Clear Neck: Yes: No masses,lesions,Nodules Breast: Yes: Breast Exam Deferred Cardiology: Yes: Within Normal Limits, Regular Rhythm, Regular Rate, S1, S2 Abdominal: Yes: Normal Bowel Sounds, Non Tender Back: Yes: Within Normal Limits Musculoskeletal: Yes: Within Normal Limits, full range of Motion, Gait Steady Extremities: Yes: Normal Capillary Refill, Normal Inspection, Normal Range of Motion Neurological: Yes: information technology architect II-XII NML intact, Fully Oriented, Alert Integumentary: Yes: Within Normal Limits - Diagnostic (1) Sedative dependence Current Visit: Yes Status: Acute (2) Alcohol dependence with withdrawal Current Visit: Yes Status: Chronic Qualifiers: Cleared for Admission [facility] - Detox or Rehab [facility] Level of Care: Medically Supervised Detox Regimen/Protocol: Valium Breathalyzer - Breathalyzer Breathalyzer: 0.066 Urine Drug Screen - Test Device Lot number: [id number] Expiration date: 09/05/20 - Control Is test valid?: Yes - Results Drug screen NEGATIVE: No Urine drug screen results: THC-Marijuana, TESSIE-Cocaine Inpatient Rehab Admission - Rehab Decision to Admit Inpatient rehab admission?: No
[2018-11-26] MEDS ORDERED: ACETAMINOPHEN 325 MG TABLET (FP) PO PRN ×2 (12:24)
[2018-11-26] MEDS ORDERED: METHOCARBAMOL 500 MG TABLET PO PRN (12:24)
[2018-11-26] MEDS ORDERED: MAGNESIUM CITRATE 300 ML BOTTLE PO PRN (12:24)
[2018-11-26] MEDS ORDERED: BISMUTH SUBSALICYLATE 524 MG/30 ML UD PO PRN (12:24)
[2018-11-26] MEDS ORDERED: chlordiazePOXIDE HCL 25 MG CAPSULE PO PRN (12:24)
[2018-11-26] MEDS ORDERED: IBUPROFEN 400 MG TABLET (FP) PO PRN (12:24)
[2018-11-26] MEDS ORDERED: MAGNESIUM HYDROX 2400MG/30ML ORAL SUSPENSION 30 ML CUP PO PRN (12:24)
[2018-11-26] MEDS ORDERED: MENTHOL/PHENOL 1 EACH UD MM PRN (12:24)
[2018-11-26] MEDS ORDERED: MAG HYDROX/AL HYDROX/SIMETH 30 ML UNIT-DOSE CUP PO PRN (12:24)
[2018-11-26] MEDS ORDERED: hydrOXYzine PAMOATE 25 MG CAPSULE (FP) PO PRN (12:24)
[2018-11-26] MEDS ORDERED: LOPERAMIDE HCL 2 MG CAPSULE PO PRN (12:27)
[2018-11-26] MEDS ORDERED: KETOCONAZOLE 2 % SHAMPOO 120 ML BOTTLE TP SCH (17:00)
[2018-11-26] MEDS: chlordiazePOXIDE HCL 25 MG CAPSULE PO SCH (17:47)
[2018-11-26] MEDS ORDERED: HYDROCORTISONE 0.5% TOPICAL CREAM 30 GM TUBE TP PRN (18:27)
[2018-11-27] MEDS: THIAMINE HCL 100 MG TABLET (FP) PO SCH ×2 (00:05→22:08)
[2018-11-27] MEDS: chlordiazePOXIDE HCL 25 MG CAPSULE PO SCH ×5 (00:06→22:08)
[2018-11-27] MEDS: PRENATAL VITAMINS W/ FOLIC ACID TABLET (FP) PO SCH (11:18)
[2018-11-27 12:12] LABS: HEMATOCRIT 40.8 % (35.4-49); HEMOGLOBIN 13.6 GM/dL (11.7-16.9); MCH 31.9 pg (25.7-33.7); MCHC 33.4 g/dl (32.0-35.9); MEAN CELL VOLUME 95.4 fl (80-96); MEAN PLT VOLUME 8.6 fl (7.5-11.1); PLATELET COUNT 243 K/MM3 (134-434); RBC 4.27 M/mm3 (4.00-5.60); RDW 14.5 % (11.9-15.9); WHITE BLOOD COUNT 3.9 K/mm3 (4.0-10.0)
--- NOTE | 2018-11-27 12:14 | PN ---
S CIWA - CIWA Score Nausea/Vomitin-No Nausea/No Vomiting Muscle Tremors: 3 Anxiety: 3 Agitation: 4-Moderately Restless Paroxysmal Sweats: 3 Orientation: 0-Oriented Tacttile Disturbances: 0-None Auditory Disturbances: 0-None Visual Disturbances: 0-None Headache: 0-None Present CIWA-Ar Total Score: 13 [facility] Progress Note (SOAP) Subjective: sweats shakes interrupted sleep diarrhea irritable dry itchy scalp and skin due to my eczema Objective: 11/27/18 12:14 Vital Signs Temperature 97.7 F 11/27/18 06:00 Pulse Rate 52 L 11/27/18 06:00 Respiratory Rate 18 11/27/18 06:00 Blood Pressure 97/66 11/27/18 06:00 O2 Sat by Pulse Oximetry (%) labs pending aaox3 ambulating no acute distress Assessment: 11/27/18 12:14 withdrawal sx Plan: continue detox increase fluids lidex ordered ketoconazole shampoo ordered
[2018-11-27 12:30] LABS: ALBUMIN 3.4 g/dl (3.4-5.0); BILIRUBIN,TOTAL 0.8 mg/dL (0.2-1); BLOOD UREA NITROGEN 11.4 mg/dL (7-18); CALCIUM 8.2 mg/dL (8.5-10.1); CREATININE 1.1 mg/dL (0.55-1.3); POTASSIUM 4.3 mmol/L (3.5-5.1)
[2018-11-27] MEDS: FLUOCINONIDE 0.05% CREAM (60 GM TUBE) TP SCH ×3 (15:26→23:11)
[2018-11-27] MEDS: MELATONIN 5 MG TABLETS PO PRN (22:09)
[2018-11-28] MEDS: chlordiazePOXIDE HCL 25 MG CAPSULE PO SCH ×4 (05:52→22:57)
--- NOTE | 2018-11-28 10:31 | PN ---
S CIWA - CIWA Score Nausea/Vomitin-No Nausea/No Vomiting Muscle Tremors: 3 Anxiety: 2 Agitation: 3 Paroxysmal Sweats: 2 Orientation: 0-Oriented Tacttile Disturbances: 0-None Auditory Disturbances: 0-None Visual Disturbances: 0-None Headache: 0-None Present CIWA-Ar Total Score: 10 S Progress Note (SOAP) Subjective: sweats agitation interrupted sleep body aches Objective: 11/28/18 10:29 Vital Signs Temperature 96.6 F L 11/28/18 09:57 Pulse Rate 57 L 11/28/18 09:57 Respiratory Rate 18 11/28/18 09:57 Blood Pressure 130/77 11/28/18 09:57 O2 Sat by Pulse Oximetry (%) Laboratory Tests 11/27/18 11/27/18 11/27/18 07:00 07:00 07:00 WBC 3.9 L RBC 4.27 Hgb 13.6 Hct 40.8 MCV 95.4 MCH 31.9 MCHC 33.4 RDW 14.5 Plt Count 243 D MPV 8.6 Sodium 143 Potassium 4.3 Chloride 108 H Carbon Dioxide 30 Anion Gap 5 L BUN 11.4 Creatinine 1.1 Est GFR (CKD-EPI)AfAm 89.61 Est GFR (CKD-EPI)NonAf 77.32 Random Glucose 70 L Calcium 8.2 L Total Bilirubin 0.8 AST 9 L ALT 20 Alkaline Phosphatase 64 Total Protein 6.0 L Albumin 3.4 RPR Titer Nonreactive labs noted aaox3 ambulating no acute distress Assessment: 11/28/18 10:31 withdrawal sx Plan: continue detox increase fluids motrin/tylenol prn
[2018-11-28] MEDS: PRENATAL VITAMINS W/ FOLIC ACID TABLET (FP) PO SCH (10:40)
[2018-11-28] MEDS: FLUOCINONIDE 0.05% CREAM (60 GM TUBE) TP SCH ×4 (10:43→22:56)
[2018-11-28] MEDS: THIAMINE HCL 100 MG TABLET (FP) PO SCH (22:56)
[2018-11-29] MEDS ORDERED: chlordiazePOXIDE HCL 10 MG CAPSULE PO PRN
[2018-11-29] MEDS: chlordiazePOXIDE HCL 10 MG CAPSULE PO SCH ×4 (06:04→22:54)
[2018-11-29] MEDS: PRENATAL VITAMINS W/ FOLIC ACID TABLET (FP) PO SCH (09:59)
[2018-11-29] MEDS: FLUOCINONIDE 0.05% TOP OINT (60 GM TUBE) TP SCH ×4 (09:59→22:54)
[2018-11-29] MEDS ORDERED: SELENIUM SULFIDE 2.25% 180 ML SHAMPOO TP SCH (10:00)
--- NOTE | 2018-11-29 12:07 | PN ---
S CIWA - CIWA Score Nausea/Vomitin-No Nausea/No Vomiting Muscle Tremors: 2 Anxiety: 1-Mildly Anxious Agitation: 2 Paroxysmal Sweats: 1-Minimal Palms Moist Orientation: 0-Oriented Tacttile Disturbances: 0-None Auditory Disturbances: 0-None Visual Disturbances: 0-None Headache: 0-None Present CIWA-Ar Total Score: 6 BHS Progress Note (SOAP) Subjective: tired irritable agitation Objective: 11/29/18 12:06 Vital Signs Temperature 97.3 F L 11/29/18 09:20 Pulse Rate 59 L 11/29/18 09:20 Respiratory Rate 18 11/29/18 09:20 Blood Pressure 111/52 L 11/29/18 09:20 O2 Sat by Pulse Oximetry (%) aaox3 ambulating no acute distress Assessment: 11/29/18 12:06 mild withdrawals Plan: continue detox increase fluids
[2018-11-29] MEDS: SELENIUM SULFIDE 2.5% LOTION 4 OZ. TP SCH (15:46)
[2018-11-29] MEDS: MELATONIN 5 MG TABLETS PO PRN (22:54)
[2018-11-29] MEDS: THIAMINE HCL 100 MG TABLET (FP) PO SCH (22:54)
[2018-11-30] MEDS: chlordiazePOXIDE HCL 10 MG CAPSULE PO SCH ×2 (06:29→17:20)
[2018-11-30] MEDS: FLUOCINONIDE 0.05% TOP OINT (60 GM TUBE) TP SCH ×4 (12:14→22:31)
[2018-11-30] MEDS: SELENIUM SULFIDE 2.5% LOTION 4 OZ. TP SCH (12:14)
[2018-11-30] MEDS: PRENATAL VITAMINS W/ FOLIC ACID TABLET (FP) PO SCH (12:14)
[2018-11-30] MEDS: THIAMINE HCL 100 MG TABLET (FP) PO SCH (22:02)
[2018-11-30] MEDS: MELATONIN 5 MG TABLETS PO PRN (22:03)
[2018-12-01] MEDS ORDERED: chlordiazePOXIDE HCL 10 MG CAPSULE PO ONE (05:00)
--- NOTE | 2018-12-01 09:51 | DS ---
[facility] Detox Discharge Summary Admission Date: 11/26/18 Discharge Date: 12/01/18 - History Present History: Alcohol Dependence, Cannabis Dependence, Cocaine Dependence, Sedative Dependence - Physical Exam Results Vital Signs: Vital Signs Temperature 97.1 F L 12/01/18 06:15 Pulse Rate 50 L 12/01/18 06:15 Respiratory Rate 18 12/01/18 06:15 Blood Pressure 101/60 12/01/18 06:15 O2 Sat by Pulse Oximetry (%) Pertinent Admission Physical Exam Findings: pt arrived in withdrawals Laboratory Tests 11/27/18 11/27/18 11/27/18 07:00 07:00 07:00 WBC 3.9 L RBC 4.27 Hgb 13.6 Hct 40.8 MCV 95.4 MCH 31.9 MCHC 33.4 RDW 14.5 Plt Count 243 D MPV 8.6 Sodium 143 Potassium 4.3 Chloride 108 H Carbon Dioxide 30 Anion Gap 5 L BUN 11.4 Creatinine 1.1 Est GFR (CKD-EPI)AfAm 89.61 Est GFR (CKD-EPI)NonAf 77.32 Random Glucose 70 L Calcium 8.2 L Total Bilirubin 0.8 AST 9 L ALT 20 Alkaline Phosphatase 64 Total Protein 6.0 L Albumin 3.4 RPR Titer Nonreactive aaox3 ambulating no acute distress no s/s of withdrawals - Treatment Hospital Course: Detox Protocol Followed, Detoxed Safely, Responded well, Discharged Condition Good, Rehab Referral Accepted Patient has Accepted a Rehab Referral to: pt declined rehab - Medication Discharge Medications: Ambulatory Orders NK [No Known Home Medication] 11/26/18 - Diagnosis (1) Sedative dependence Current Visit: Yes Status: Chronic (2) Alcohol dependence with withdrawal Current Visit: Yes Status: Chronic Qualifiers: Complication of substance-induced condition: uncomplicated Qualified Code(s ): F10.230 - Alcohol dependence with withdrawal, uncomplicated (3) Substance-induced sleep disorder Current Visit: No Status: Acute (4) Cannabis dependence Current Visit: Yes Status: Chronic (5) Cocaine dependence Current Visit: Yes Status: Chronic (6) Nicotine dependence Current Visit: Yes Status: Chronic Qualifiers: Nicotine product type: cigarettes Substance use status: uncomplicated Qualified Code(s): F17.210 - Nicotine dependence, cigarettes, uncomplicated (7) Seborrheic eczema of scalp Current Visit: Yes Status: Chronic - AMA Did Patient Leave Against Medical Advice: No (going home. referral provided.)
[2018-12-01 09:57] VITALS: BP 115/58; PULSE 56; TEMP 97.6
== END 2018-12-01 09:10 | disposition home or self-care (01) | DRG 774 ==
LOC: YASAS 10:55 → Y6N 12:38
PROVIDERS: ADMIT Surgery; ATTEND Surgery
PROC: HZ2ZZZZ Detoxification Services for Substance Abuse Treatment (ICD-10-PCS; principal; 2018-11-26)
DX: F10.230 Alcohol dependence with withdrawal, uncomplicated (principal); F13.20 Sedative, hypnotic or anxiolytic dependence, uncomplicated; F14.20 Cocaine dependence, uncomplicated; F12.20 Cannabis dependence, uncomplicated; F17.210 Nicotine dependence, cigarettes, uncomplicated; F19.282 Other psychoactive substance dependence with psychoactive substance-induced sleep disorder; L21.9 Seborrheic dermatitis, unspecified
CPT/HCPCS: 36415; 80053; 85027; 86593

== ENCOUNTER 2019-01-07 08:05 | Inpatient (IN) | payer OTHER ==
[2019-01-07 09:01] VITALS: BMI 30.7
--- NOTE | 2019-01-07 09:19 | HP ---
CIWA Score Nausea/Vomitin-Mild Nausea/No Vomiting Muscle Tremors: 3 Anxiety: 3 Agitation: 3 Paroxysmal Sweats: 1-Minimal Palms Moist Orientation: 0-Oriented Tacttile Disturbances: 1-Very Mild Itch/Numbness Auditory Disturbances: 0-None Visual Disturbances: 0-None Headache: 2-Mild CIWA-Ar Total Score: 14 - Admission Criteria OASAS Guidelines: Admission for Medically Managed Detox: Requires at least one of the followin. CIWA greater than 12 2. Seizures within the past 24 hours 3. Delirium tremens within the past 24 hours 4. Hallucinations within the past 24 hours 5. Acute intervention needed for co occurring medical disorder 6. Acute intervention needed for co occurring psychiatric disorder 7. Severe withdrawal that cannot be handled at a lower level of care (continued vomiting, continued diarrhea, abnormal vital signs) requiring intravenous medication and/or fluids 8. Admission ROS S - [facility] Chief Complaint: i need help to stop drinking alcohol,xanax,crack and marijuana Allergies/Adverse Reactions: Allergies Allergy/AdvReac Type Severity Reaction Status Date / Time chicken derived Allergy Intermediate Rash Verified 01/07/19 08:56 Penicillins Allergy Intermediate Rash Verified 01/07/19 08:56 History of Present Illness: this 53 years old male with alcohol,cocaine,marijuana and xanax dependence, seeking detox,withdrawal symptom, multiple admissions in detox,last [facility] 11/26/18 to 12/01/18 seizure alcohol withdrawal last 10 years ago syncope nicotine dependence 4 cigarette/day seborrheic dermatitis of scalp longest sobriety 2 years from 1998 to 1999 plan for rehab after detox Exam Limitations: No Limitations - Ebola screening Have you traveled outside of the country in the last 21 days: No (N) Have you had contact with anyone from an Ebola affected area: No Do you have a fever: No - Review of Systems Constitutional: Loss of Appetite, Malaise, Night Sweats, Changes in sleep, Weakness EENT: reports: Tearing, Nose Congestion, Other (seborrheic dermatitis of scalp) Respiratory: reports: No Symptoms reported Cardiac: reports: No Symptoms Reported GI: reports: Nausea, Poor Appetite, Abdominal cramping : reports: No Symptoms Reported Integumentary: reports: Dryness Neuro: reports: Headache, Tremors Endocrine: reports: No Symptoms Reported Hematology: reports: No Symptoms Reported Psychiatric: reports: No Sypmtoms Reported, Judgement Intact, Mood/Affect Appropiate, Orientated x3 Other Systems: Reviewed and Negative Patient History - Patient Medical History Hx Anemia: No Hx Asthma: No Hx Chronic Obstructive Pulmonary Disease (COPD): No Hx Cancer: No Hx Cardiac Disorders: No Hx Congestive Heart Failure: No Hx Hypertension: No Hx Hypercholesterolemia: No Hx Pacemaker: No HX Cerebrovascular Accident: No Hx Seizures: Yes (alcohol related x2-last episode was in 2002) Hx Dementia: No Hx Diabetes: No Hx Gastrointestinal Disorders: No Hx Liver Disease: No Hx Genitourinary Disorders: No Hx Sexually Transmitted Disorders: No Hx Renal Disease (ESRD): No Hx Thyroid Disease: No Hx Human Immunodeficiency Virus (HIV): No ( last tested 2017 negative) Hx Hepatitis C: No (denies) Hx Depression: No Hx Suicide Attempt: No Hx Bipolar Disorder: No Hx Schizophrenia: No Other Medical History: no suicidal,no homicidal - Patient Surgical History Past Surgical History: No Hx Neurologic Surgery: No Hx Cataract Extraction: No Hx Cardiac Surgery: No Hx Lung Surgery: No Hx Breast Surgery: No Hx Breast Biopsy: No Hx Abdominal Surgery: No Hx Appendectomy: No Hx Cholecystectomy: No Hx Genitourinary Surgery: No Hx Section: No Hx Orthopedic Surgery: No Anesthesia Reaction: No - PPD History Previous Implant?: Yes Documented Results: Negative w/proof Implanted On Prior R Admission?: Yes Date: 10/03/18 Results: 0 mm - Smoking Cessation Smoking history: Current every day smoker Have you smoked in the past 12 months: No Aproximately how many cigarettes per day: 4 Hx Chewing Tobacco Use: No Initiated information on smoking cessation: Yes 'Breaking Loose' booklet given: 01/07/19 - Substance & Tx. History Hx Alcohol Use: Yes Hx Substance Use: Yes Substance Use Type: Alcohol, Cocaine, Marijuana, Tranquilizers Hx Substance Use Treatment: Yes ([facility] 11/26/18 to 12/01/18) - Substances abused Alprazolam (Xanax) Substance route: Oral Frequency: Daily Amount used: 3 tablets Age of first use: 51 Date of last use: 01/07/19 Alcohol Substance route: Oral Frequency: Daily Amount used: BEER 3 x 6 PACKS; VODKA - 1 LITER Age of first use: 12 Date of last use: 01/07/19 Marijuana/Hashish Substance route: Smoking Frequency: Daily Amount used: 2 BLUNTS Age of first use: 17 Date of last use: 01/07/19 Crack Substance route: Smoking Frequency: Daily Amount used: $200 Age of first use: 24 Date of last use: 01/07/19 Family Disease History - Family Disease History Family Disease History: Other: Father () Admission Physical Exam [facility] - Vital Signs Vital Signs: Vital Signs - 24 hr 01/07/19 08:55 Temperature 97.0 F L Pulse Rate 70 Respiratory 16 Rate Blood Pressure 133/79 - Physical General Appearance: Yes: Moderate Distress, Tremorous, Irritable, Sweating, Anxious HEENTM: Yes: Normal ENT Inspection, ENMA, Pharynx Normal, Other (upper denture) Respiratory: Yes: Lungs Clear, Normal Breath Sounds, No Respiratory Distress Neck: Yes: Within Normal Limits, Supple, Trachea in good position Breast: Yes: Within Normal Limits Cardiology: Yes: Within Normal Limits, Regular Rhythm, Regular Rate, S1, S2 Abdominal: Yes: Within Normal Limits, Normal Bowel Sounds, Non Tender, Flat, Soft Genitourinary: Yes: Within Normal Limits Musculoskeletal: Yes: Back pain, Muscle Pain Extremities: Yes: Tremors Neurological: Yes: 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, Fully Oriented, Alert, Motor Strength 5/5 Integumentary: Yes: Dry Lymphatic: Yes: Within Normal Limits - Diagnostic (1) Alcohol dependence with withdrawal Current Visit: No Status: Chronic Qualifiers: Complication of substance-induced condition: uncomplicated Qualified Code(s ): F10.230 - Alcohol dependence with withdrawal, uncomplicated (2) Cannabis dependence Current Visit: No Status: Chronic (3) Cocaine dependence Current Visit: No Status: Chronic (4) Nicotine dependence Current Visit: No Status: Chronic Qualifiers: Nicotine product type: cigarettes Substance use status: uncomplicated Qualified Code(s): F17.210 - Nicotine dependence, cigarettes, uncomplicated (5) Seborrheic eczema of scalp Current Visit: No Status: Chronic (6) Uncomplicated sedative, hypnotic or anxiolytic withdrawal Current Visit: Yes Status: Acute Cleared for Admission [facility] - Detox or Rehab [facility] Level of Care: Medically Managed Detox Regimen/Protocol: Librium Breathalyzer - Breathalyzer Breathalyzer: 0.066 Urine Drug Screen - Test Device Lot number: [id number] Expiration date: 09/05/20 - Control Is test valid?: Yes - Results Drug screen NEGATIVE: No Urine drug screen results: THC-Marijuana, TESSIE-Cocaine Inpatient Rehab Admission - Rehab Decision to Admit Inpatient rehab admission?: No
[2019-01-07] MEDS ORDERED: chlordiazePOXIDE HCL 25 MG CAPSULE PO PRN (09:29)
[2019-01-07] MEDS ORDERED: BISMUTH SUBSALICYLATE 262 MG/15 ML BTL PO PRN (09:29)
[2019-01-07] MEDS ORDERED: METHOCARBAMOL 500 MG TABLET PO PRN (09:29)
[2019-01-07] MEDS ORDERED: ACETAMINOPHEN 325 MG TABLET (FP) PO PRN ×2 (09:29)
[2019-01-07] MEDS ORDERED: MAGNESIUM HYDROX 2400MG/30ML ORAL SUSPENSION 30 ML CUP PO PRN (09:29)
[2019-01-07] MEDS ORDERED: IBUPROFEN 400 MG TABLET (FP) PO PRN (09:29)
[2019-01-07] MEDS ORDERED: MAG HYDROX/AL HYDROX/SIMETH 30 ML UNIT-DOSE CUP PO PRN (09:29)
[2019-01-07] MEDS ORDERED: hydrOXYzine PAMOATE 25 MG CAPSULE (FP) PO PRN (09:29)
[2019-01-07] MEDS ORDERED: MENTHOL/PHENOL 1 EACH UD MM PRN (09:29)
[2019-01-07] MEDS ORDERED: MAGNESIUM CITRATE 300 ML BOTTLE PO PRN (09:29)
[2019-01-07] MEDS: PRENATAL VITAMINS W/ FOLIC ACID TABLET (FP) PO SCH (11:22)
[2019-01-07] MEDS: chlordiazePOXIDE HCL 25 MG CAPSULE PO SCH ×3 (11:22→22:35)
[2019-01-07] MEDS: SELENIUM SULFIDE 2.5% LOTION 4 OZ. TP SCH (12:43)
[2019-01-07] MEDS: FLUOCINONIDE 0.05% TOP OINT (60 GM TUBE) TP SCH ×2 (12:43→22:39)
[2019-01-07] MEDS: THIAMINE HCL 100 MG TABLET (FP) PO SCH (22:35)
[2019-01-08] MEDS: chlordiazePOXIDE HCL 25 MG CAPSULE PO SCH ×4 (06:45→22:12)
--- NOTE | 2019-01-08 09:28 | PN ---
S CIWA - CIWA Score Nausea/Vomitin-Mild Nausea/No Vomiting Muscle Tremors: 2 Anxiety: 4-Mod. Anxious/Guarded Agitation: 3 Paroxysmal Sweats: 2 Orientation: 0-Oriented Tacttile Disturbances: 0-None Auditory Disturbances: 0-None Visual Disturbances: 0-None Headache: 1-Very Mild CIWA-Ar Total Score: 13 S Progress Note (SOAP) Subjective: 53 years old male 3rd patient [facility] admission since 2019 was admitted on 01/07/19 for alcohol and benzo withdrawal sx management doing well with librium detox regimen at breakfast resting on bed feeling tired Objective: 01/08/19 09:30 Vital Signs Temperature 97.2 F L 01/08/19 09:17 Pulse Rate 69 01/08/19 09:17 Respiratory Rate 18 01/08/19 09:17 Blood Pressure 94/57 L 01/08/19 09:17 O2 Sat by Pulse Oximetry (%) 01/08/19 09:31 lab pending 01/08/19 09:31 encourage oral fluid and pivot slowly denies dizziness ambulating from bed to bathroom Assessment: 01/08/19 09:31 alcohol and benzo withdrawal sx seems anxious but prefers to sleep limited conversation with staff Plan: continue librium detox regimen
[2019-01-08 09:51] LABS: HEMATOCRIT 41.6 % (35.4-49); HEMOGLOBIN 14.1 GM/dL (11.7-16.9); MCH 31.3 pg (25.7-33.7); MCHC 33.8 g/dl (32.0-35.9); MEAN CELL VOLUME 92.5 fl (80-96); MEAN PLT VOLUME 8.6 fl (7.5-11.1); PLATELET COUNT 245 K/MM3 (134-434); RDW 14.4 % (11.9-15.9); WHITE BLOOD COUNT 3.7 K/mm3 (4.0-10.0)
[2019-01-08 09:56] LABS: ALBUMIN 3.6 g/dl (3.4-5.0); BILIRUBIN,TOTAL 1.4 mg/dL (0.2-1); BLOOD UREA NITROGEN 13.1 mg/dL (7-18); CALCIUM 8.7 mg/dL (8.5-10.1); CREATININE 0.9 mg/dL (0.55-1.3); POTASSIUM 4.1 mmol/L (3.5-5.1); TOT PROT 6.3 g/dl (6.4-8.2)
[2019-01-08] MEDS: FLUOCINONIDE 0.05% TOP OINT (60 GM TUBE) TP SCH ×2 (10:18→22:14)
[2019-01-08] MEDS: PRENATAL VITAMINS W/ FOLIC ACID TABLET (FP) PO SCH (10:18)
[2019-01-08] MEDS: SELENIUM SULFIDE 2.5% LOTION 4 OZ. TP SCH (10:18)
[2019-01-08 19:36] LABS: EPI CELLS 1.2 /HPF (0-5/HPF); HYALINE CASTS 1 /lpf (0-8); PH,URINE 5.5 (5.0-8.0); URINE APPEARANCE CLEAR; URINE BACTERIA 0 /hpf (NEGATIVE); URINE BILIRUBIN NEGATIVE (NEGATIVE); URINE COLOR YELLOW; URINE GLUCOSE (UA) NEGATIVE (NEGATIVE); URINE KETONE NEGATIVE (NEGATIVE); URINE LEUK ESTERASE TRACE (NEGATIVE); URINE NITRITE NEGATIVE (NEGATIVE); URINE PROTEIN NEGATIVE (NEGATIVE); URINE RBC 1 /hpf (0-4); URINE UROBILINOGEN 0.2 mg/dL (0.2-1.0); URINE WBC 4 /hpf (0-5)
[2019-01-08] MEDS: THIAMINE HCL 100 MG TABLET (FP) PO SCH (22:12)
[2019-01-08] MEDS: MELATONIN 5 MG TABLETS PO PRN (22:12)
[2019-01-09] MEDS: chlordiazePOXIDE HCL 25 MG CAPSULE PO SCH ×4 (06:28→22:12)
[2019-01-09] MEDS: PRENATAL VITAMINS W/ FOLIC ACID TABLET (FP) PO SCH (10:22)
[2019-01-09] MEDS: SELENIUM SULFIDE 2.5% LOTION 4 OZ. TP SCH (10:23)
[2019-01-09] MEDS: FLUOCINONIDE 0.05% TOP OINT (60 GM TUBE) TP SCH ×2 (10:23→22:13)
--- NOTE | 2019-01-09 10:29 | PN ---
[facility] CIWA - CIWA Score Nausea/Vomitin-Mild Nausea/No Vomiting Muscle Tremors: 3 Anxiety: 2 Agitation: 2 Paroxysmal Sweats: 2 Orientation: 0-Oriented Tacttile Disturbances: 0-None Auditory Disturbances: 0-None Visual Disturbances: 0-None Headache: 0-None Present CIWA-Ar Total Score: 10 [facility] Progress Note (SOAP) Subjective: doing well with libirum detox regimen resting one bed comfortably limited conversation with staff Objective: 01/09/19 10:28 Vital Signs Temperature 97.7 F 01/09/19 09:07 Pulse Rate 55 L 01/09/19 09:07 Respiratory Rate 18 01/09/19 09:07 Blood Pressure 96/62 01/09/19 09:07 O2 Sat by Pulse Oximetry (%) Laboratory Last Values WBC 3.7 K/mm3 (4.0-10.0) L 01/08/19 07:30 RBC 4.50 M/mm3 (4.00-5.60) 01/08/19 07:30 Hgb 14.1 GM/dL (11.7-16.9) 01/08/19 07:30 Hct 41.6 % (35.4-49) 01/08/19 07:30 MCV 92.5 fl (80-96) 01/08/19 07:30 MCH 31.3 pg (25.7-33.7) 01/08/19 07:30 MCHC 33.8 g/dl (32.0-35.9) 01/08/19 07:30 RDW 14.4 % (11.9-15.9) 01/08/19 07:30 Plt Count 245 K/MM3 (134-434) 01/08/19 07:30 MPV 8.6 fl (7.5-11.1) 01/08/19 07:30 Sodium 142 mmol/L (136-145) 01/08/19 07:30 Potassium 4.1 mmol/L (3.5-5.1) 01/08/19 07:30 Chloride 107 mmol/L (98-107) 01/08/19 07:30 Carbon Dioxide 32 mmol/L (21-32) 01/08/19 07:30 Anion Gap 3 MMOL/L (8-16) L 01/08/19 07:30 BUN 13.1 mg/dL (7-18) 01/08/19 07:30 Creatinine 0.9 mg/dL (0.55-1.3) 01/08/19 07:30 Est GFR (CKD-EPI)AfAm 114.21 01/08/19 07:30 Est GFR (CKD-EPI)NonAf 98.54 01/08/19 07:30 Random Glucose 84 mg/dL (74-106) 01/08/19 07:30 Calcium 8.7 mg/dL (8.5-10.1) 01/08/19 07:30 Total Bilirubin 1.4 mg/dL (0.2-1) H 01/08/19 07:30 AST 18 U/L (15-37) 01/08/19 07:30 ALT 22 U/L (13-61) 01/08/19 07:30 Alkaline Phosphatase 59 U/L (45-117) 01/08/19 07:30 Total Protein 6.3 g/dl (6.4-8.2) L 01/08/19 07:30 Albumin 3.6 g/dl (3.4-5.0) 01/08/19 07:30 Urine Color Yellow 01/08/19 10:25 Urine Appearance Clear 01/08/19 10:25 Urine pH 5.5 (5.0-8.0) 01/08/19 10:25 Ur Specific [place] 1.014 (1.010-1.035) 01/08/19 10:25 Urine Protein Negative (NEGATIVE) 01/08/19 10:25 Urine Glucose (UA) Negative (NEGATIVE) 01/08/19 10:25 Urine Ketones Negative (NEGATIVE) 01/08/19 10:25 Urine Blood Negative (NEGATIVE) 01/08/19 10:25 Urine Nitrite Negative (NEGATIVE) 01/08/19 10:25 Urine Bilirubin Negative (NEGATIVE) 01/08/19 10:25 Urine Urobilinogen 0.2 mg/dL (0.2-1.0) 01/08/19 10:25 Ur Leukocyte Esterase Trace (NEGATIVE) 01/08/19 10:25 Urine WBC (Auto) 4 /hpf (0-5) 01/08/19 10:25 Urine RBC (Auto) 1 /hpf (0-4) 01/08/19 10:25 Urine Casts (Auto) 1 /lpf (0-8) 01/08/19 10:25 U Epithel Cells (Auto) 1.2 /HPF (0-5/HPF) 01/08/19 10:25 Urine Bacteria (Auto) 0 /hpf (NEGATIVE) 01/08/19 10:25 RPR Titer Nonreactive (NONREACTIVE) 01/08/19 07:30 HIV 1&2 Antibody Screen Cancelled 01/08/19 07:30 HIV P24 Antigen Cancelled 01/08/19 07:30 lab noted Assessment: 01/09/19 10:28 alcohol and benzo withdrawal sx alert speech clearly Plan: continue libirum detox regimen
[2019-01-09] MEDS: THIAMINE HCL 100 MG TABLET (FP) PO SCH (22:12)
[2019-01-09] MEDS: MELATONIN 5 MG TABLETS PO PRN (22:13)
[2019-01-10] MEDS ORDERED: chlordiazePOXIDE HCL 10 MG CAPSULE PO PRN
[2019-01-10] MEDS: chlordiazePOXIDE HCL 10 MG CAPSULE PO SCH ×4 (06:55→22:33)
[2019-01-10] MEDS: PRENATAL VITAMINS W/ FOLIC ACID TABLET (FP) PO SCH (10:27)
[2019-01-10] MEDS: FLUOCINONIDE 0.05% TOP OINT (60 GM TUBE) TP SCH ×2 (10:28→22:32)
[2019-01-10] MEDS: SELENIUM SULFIDE 2.5% LOTION 4 OZ. TP SCH (10:28)
--- NOTE | 2019-01-10 15:34 | PN ---
[facility] CIWA - CIWA Score Nausea/Vomitin-No Nausea/No Vomiting Muscle Tremors: 2 Anxiety: 2 Agitation: 2 Paroxysmal Sweats: 1-Minimal Palms Moist Orientation: 0-Oriented Tacttile Disturbances: 0-None Auditory Disturbances: 0-None Visual Disturbances: 0-None Headache: 1-Very Mild CIWA-Ar Total Score: 8 S Progress Note (SOAP) Subjective: doing well with librium detox regimen feeling anxious and restlessness Objective: 01/10/19 15:35 Vital Signs Temperature 96.9 F L 01/10/19 13:33 Pulse Rate 64 01/10/19 13:33 Respiratory Rate 18 01/10/19 13:33 Blood Pressure 117/73 01/10/19 13:33 O2 Sat by Pulse Oximetry (%) Laboratory Last Values WBC 3.7 K/mm3 (4.0-10.0) L 01/08/19 07:30 RBC 4.50 M/mm3 (4.00-5.60) 01/08/19 07:30 Hgb 14.1 GM/dL (11.7-16.9) 01/08/19 07:30 Hct 41.6 % (35.4-49) 01/08/19 07:30 MCV 92.5 fl (80-96) 01/08/19 07:30 MCH 31.3 pg (25.7-33.7) 01/08/19 07:30 MCHC 33.8 g/dl (32.0-35.9) 01/08/19 07:30 RDW 14.4 % (11.9-15.9) 01/08/19 07:30 Plt Count 245 K/MM3 (134-434) 01/08/19 07:30 MPV 8.6 fl (7.5-11.1) 01/08/19 07:30 Sodium 142 mmol/L (136-145) 01/08/19 07:30 Potassium 4.1 mmol/L (3.5-5.1) 01/08/19 07:30 Chloride 107 mmol/L (98-107) 01/08/19 07:30 Carbon Dioxide 32 mmol/L (21-32) 01/08/19 07:30 Anion Gap 3 MMOL/L (8-16) L 01/08/19 07:30 BUN 13.1 mg/dL (7-18) 01/08/19 07:30 Creatinine 0.9 mg/dL (0.55-1.3) 01/08/19 07:30 Est GFR (CKD-EPI)AfAm 114.21 01/08/19 07:30 Est GFR (CKD-EPI)NonAf 98.54 01/08/19 07:30 Random Glucose 84 mg/dL (74-106) 01/08/19 07:30 Calcium 8.7 mg/dL (8.5-10.1) 01/08/19 07:30 Total Bilirubin 1.4 mg/dL (0.2-1) H 01/08/19 07:30 AST 18 U/L (15-37) 01/08/19 07:30 ALT 22 U/L (13-61) 01/08/19 07:30 Alkaline Phosphatase 59 U/L (45-117) 01/08/19 07:30 Total Protein 6.3 g/dl (6.4-8.2) L 01/08/19 07:30 Albumin 3.6 g/dl (3.4-5.0) 01/08/19 07:30 Urine Color Yellow 01/08/19 10:25 Urine Appearance Clear 01/08/19 10:25 Urine pH 5.5 (5.0-8.0) 01/08/19 10:25 Ur Specific [place] 1.014 (1.010-1.035) 01/08/19 10:25 Urine Protein Negative (NEGATIVE) 01/08/19 10:25 Urine Glucose (UA) Negative (NEGATIVE) 01/08/19 10:25 Urine Ketones Negative (NEGATIVE) 01/08/19 10:25 Urine Blood Negative (NEGATIVE) 01/08/19 10:25 Urine Nitrite Negative (NEGATIVE) 01/08/19 10:25 Urine Bilirubin Negative (NEGATIVE) 01/08/19 10:25 Urine Urobilinogen 0.2 mg/dL (0.2-1.0) 01/08/19 10:25 Ur Leukocyte Esterase Trace (NEGATIVE) 01/08/19 10:25 Urine WBC (Auto) 4 /hpf (0-5) 01/08/19 10:25 Urine RBC (Auto) 1 /hpf (0-4) 01/08/19 10:25 Urine Casts (Auto) 1 /lpf (0-8) 01/08/19 10:25 U Epithel Cells (Auto) 1.2 /HPF (0-5/HPF) 01/08/19 10:25 Urine Bacteria (Auto) 0 /hpf (NEGATIVE) 01/08/19 10:25 RPR Titer Nonreactive (NONREACTIVE) 01/08/19 07:30 HIV 1&2 Antibody Screen Cancelled 01/08/19 07:30 HIV P24 Antigen Cancelled 01/08/19 07:30 lab noted increase oral fluid Assessment: 01/10/19 15:35 alcohol and benzo withdrawal sx Plan: continue libirum detox regimen
[2019-01-10] MEDS: MELATONIN 5 MG TABLETS PO PRN (21:17)
[2019-01-10] MEDS: THIAMINE HCL 100 MG TABLET (FP) PO SCH (21:18)
[2019-01-11] MEDS: chlordiazePOXIDE HCL 10 MG CAPSULE PO SCH ×2 (06:24→17:13)
[2019-01-11] MEDS: SELENIUM SULFIDE 2.5% LOTION 4 OZ. TP SCH (10:46)
[2019-01-11] MEDS: FLUOCINONIDE 0.05% TOP OINT (60 GM TUBE) TP SCH ×2 (10:46→21:58)
[2019-01-11] MEDS: PRENATAL VITAMINS W/ FOLIC ACID TABLET (FP) PO SCH (10:46)
[2019-01-11 13:53] VITALS: BP 118/78; PULSE 60; TEMP 96.7
--- NOTE | 2019-01-11 17:40 | PN ---
S CIWA - CIWA Score Nausea/Vomitin-No Nausea/No Vomiting Muscle Tremors: None Anxiety: 1-Mildly Anxious Agitation: 1-Slight > Activity Paroxysmal Sweats: No Perspiration Orientation: 0-Oriented Tacttile Disturbances: 0-None Auditory Disturbances: 0-None Visual Disturbances: 0-None Headache: 0-None Present CIWA-Ar Total Score: 2 BHS Progress Note (SOAP) Subjective: Patient denies current Withdrawal / Detox symptoms and reports that he feels well overall at this time. Objective: PATIENT A & O X 3, OBSERVED AMBULATING ON UNIT UNASSISTED. IN NO ACUTE DISTRESS. 01/11/19 17:38 Vital Signs Temperature 96.7 F L 01/11/19 13:52 Pulse Rate 60 01/11/19 13:52 Respiratory Rate 18 01/11/19 13:52 Blood Pressure 118/78 01/11/19 13:52 O2 Sat by Pulse Oximetry (%) Laboratory Tests 01/08/19 01/08/19 01/08/19 07:30 07:30 07:30 WBC 3.7 L RBC 4.50 Hgb 14.1 Hct 41.6 MCV 92.5 MCH 31.3 MCHC 33.8 RDW 14.4 Plt Count 245 MPV 8.6 Sodium 142 Potassium 4.1 Chloride 107 Carbon Dioxide 32 Anion Gap 3 L BUN 13.1 Creatinine 0.9 Est GFR (CKD-EPI)AfAm 114.21 Est GFR (CKD-EPI)NonAf 98.54 Random Glucose 84 Calcium 8.7 Total Bilirubin 1.4 H AST 18 ALT 22 Alkaline Phosphatase 59 Total Protein 6.3 L Albumin 3.6 Urine Color Urine Appearance Urine pH Ur Specific [place] Urine Protein Urine Glucose (UA) Urine Ketones Urine Blood Urine Nitrite Urine Bilirubin Urine Urobilinogen Ur Leukocyte Esterase Urine WBC (Auto) Urine RBC (Auto) Urine Casts (Auto) U Epithel Cells (Auto) Urine Bacteria (Auto) RPR Titer Nonreactive HIV 1&2 Antibody Screen HIV P24 Antigen 01/08/19 01/08/19 07:30 10:25 WBC RBC Hgb Hct MCV MCH MCHC RDW Plt Count MPV Sodium Potassium Chloride Carbon Dioxide Anion Gap BUN Creatinine Est GFR (CKD-EPI)AfAm Est GFR (CKD-EPI)NonAf Random Glucose Calcium Total Bilirubin AST ALT Alkaline Phosphatase Total Protein Albumin Urine Color Yellow Urine Appearance Clear Urine pH 5.5 Ur Specific [place] 1.014 Urine Protein Negative Urine Glucose (UA) Negative Urine Ketones Negative Urine Blood Negative Urine Nitrite Negative Urine Bilirubin Negative Urine Urobilinogen 0.2 Ur Leukocyte Esterase Trace Urine WBC (Auto) 4 Urine RBC (Auto) 1 Urine Casts (Auto) 1 U Epithel Cells (Auto) 1.2 Urine Bacteria (Auto) 0 RPR Titer HIV 1&2 Antibody Screen Cancelled HIV P24 Antigen Cancelled LABS NOTED. RESULTS OF DETOX ADMISSION HIV AB TEST PENDING. 01/11/19 17:39 Assessment: 01/11/19 17:39 WITHDRAWAL SYMPTOMS. LEUKOPENIA. HYPERBILIRUBINEMIA. Plan: CONTINUE DETOX. INCREASE DAILY PO WATER INTAKE. PATIENT SCHEDULED FOR D/C FROM DETOX UNIT TOMORROW.
[2019-01-11] MEDS: MELATONIN 5 MG TABLETS PO PRN (21:02)
[2019-01-11] MEDS: THIAMINE HCL 100 MG TABLET (FP) PO SCH (21:02)
[2019-01-12] MEDS ORDERED: chlordiazePOXIDE HCL 10 MG CAPSULE PO ONE (05:00)
[2019-01-12] MEDS: SELENIUM SULFIDE 2.5% LOTION 4 OZ. TP SCH (10:48)
[2019-01-12] MEDS: PRENATAL VITAMINS W/ FOLIC ACID TABLET (FP) PO SCH (10:48)
[2019-01-12] MEDS: FLUOCINONIDE 0.05% TOP OINT (60 GM TUBE) TP SCH (10:48)
--- NOTE | 2019-01-12 12:51 | PN ---
[facility] CIWA - CIWA Score Nausea/Vomitin-No Nausea/No Vomiting Muscle Tremors: 1-None Visible, but [place] Anxiety: 1-Mildly Anxious Agitation: 1-Slight > Activity Paroxysmal Sweats: No Perspiration Orientation: 0-Oriented Tacttile Disturbances: 0-None Auditory Disturbances: 0-None Visual Disturbances: 0-None Headache: 0-None Present CIWA-Ar Total Score: 3 BHS Progress Note (SOAP) Subjective: alert,interrupted sleep, Objective: 01/12/19 12:49 Vital Signs Temperature 96.7 F L 01/11/19 13:52 Pulse Rate 60 01/11/19 13:52 Respiratory Rate 18 01/12/19 03:30 Blood Pressure 118/78 01/11/19 13:52 O2 Sat by Pulse Oximetry (%) Assessment: 01/12/19 12:49 detox completed,no withdrawal symptom Plan: discharge today,follow up [facility] as arrangement
--- NOTE | 2019-01-12 12:54 | DS ---
[facility] Detox Discharge Summary Admission Date: 01/07/19 Discharge Date: 01/12/19 - History Present History: Alcohol Dependence, Cannabis Dependence, Cocaine Dependence, Sedative Dependence Additional Comments: follow up [facility] as arrangement - Physical Exam Results Vital Signs: Vital Signs Temperature 96.7 F L 01/11/19 13:52 Pulse Rate 60 01/11/19 13:52 Respiratory Rate 18 01/12/19 03:30 Blood Pressure 118/78 01/11/19 13:52 O2 Sat by Pulse Oximetry (%) Pertinent Admission Physical Exam Findings: withdrawal signs and symptom Laboratory Last Values WBC 3.7 K/mm3 (4.0-10.0) L 01/08/19 07:30 RBC 4.50 M/mm3 (4.00-5.60) 01/08/19 07:30 Hgb 14.1 GM/dL (11.7-16.9) 01/08/19 07:30 Hct 41.6 % (35.4-49) 01/08/19 07:30 MCV 92.5 fl (80-96) 01/08/19 07:30 MCH 31.3 pg (25.7-33.7) 01/08/19 07:30 MCHC 33.8 g/dl (32.0-35.9) 01/08/19 07:30 RDW 14.4 % (11.9-15.9) 01/08/19 07:30 Plt Count 245 K/MM3 (134-434) 01/08/19 07:30 MPV 8.6 fl (7.5-11.1) 01/08/19 07:30 Sodium 142 mmol/L (136-145) 01/08/19 07:30 Potassium 4.1 mmol/L (3.5-5.1) 01/08/19 07:30 Chloride 107 mmol/L (98-107) 01/08/19 07:30 Carbon Dioxide 32 mmol/L (21-32) 01/08/19 07:30 Anion Gap 3 MMOL/L (8-16) L 01/08/19 07:30 BUN 13.1 mg/dL (7-18) 01/08/19 07:30 Creatinine 0.9 mg/dL (0.55-1.3) 01/08/19 07:30 Est GFR (CKD-EPI)AfAm 114.21 01/08/19 07:30 Est GFR (CKD-EPI)NonAf 98.54 01/08/19 07:30 Random Glucose 84 mg/dL (74-106) 01/08/19 07:30 Calcium 8.7 mg/dL (8.5-10.1) 01/08/19 07:30 Total Bilirubin 1.4 mg/dL (0.2-1) H 01/08/19 07:30 AST 18 U/L (15-37) 01/08/19 07:30 ALT 22 U/L (13-61) 01/08/19 07:30 Alkaline Phosphatase 59 U/L (45-117) 01/08/19 07:30 Total Protein 6.3 g/dl (6.4-8.2) L 01/08/19 07:30 Albumin 3.6 g/dl (3.4-5.0) 01/08/19 07:30 Urine Color Yellow 01/08/19 10:25 Urine Appearance Clear 01/08/19 10:25 Urine pH 5.5 (5.0-8.0) 01/08/19 10:25 Ur Specific [place] 1.014 (1.010-1.035) 01/08/19 10:25 Urine Protein Negative (NEGATIVE) 01/08/19 10:25 Urine Glucose (UA) Negative (NEGATIVE) 01/08/19 10:25 Urine Ketones Negative (NEGATIVE) 01/08/19 10:25 Urine Blood Negative (NEGATIVE) 01/08/19 10:25 Urine Nitrite Negative (NEGATIVE) 01/08/19 10:25 Urine Bilirubin Negative (NEGATIVE) 01/08/19 10:25 Urine Urobilinogen 0.2 mg/dL (0.2-1.0) 01/08/19 10:25 Ur Leukocyte Esterase Trace (NEGATIVE) 01/08/19 10:25 Urine WBC (Auto) 4 /hpf (0-5) 01/08/19 10:25 Urine RBC (Auto) 1 /hpf (0-4) 01/08/19 10:25 Urine Casts (Auto) 1 /lpf (0-8) 01/08/19 10:25 U Epithel Cells (Auto) 1.2 /HPF (0-5/HPF) 01/08/19 10:25 Urine Bacteria (Auto) 0 /hpf (NEGATIVE) 01/08/19 10:25 RPR Titer Nonreactive (NONREACTIVE) 01/08/19 07:30 HIV 1&2 Antibody Screen Cancelled 01/08/19 07:30 HIV P24 Antigen Cancelled 01/08/19 07:30 - Treatment Hospital Course: Detox Protocol Followed, Detoxed Safely, Responded well, Discharged Condition Good, Rehab Referral Accepted Patient has Accepted a Rehab Referral to: [facility] - Medication Discharge Medications: Ambulatory Orders NK [No Known Home Medication] 11/26/18 - Diagnosis (1) Alcohol dependence with withdrawal Status: Chronic Qualifiers: Complication of substance-induced condition: uncomplicated Qualified Code(s ): F10.230 - Alcohol dependence with withdrawal, uncomplicated (2) Cannabis dependence Status: Chronic (3) Cocaine dependence Status: Chronic (4) Nicotine dependence Status: Chronic Qualifiers: Nicotine product type: cigarettes Substance use status: uncomplicated Qualified Code(s): F17.210 - Nicotine dependence, cigarettes, uncomplicated (5) Seborrheic eczema of scalp Status: Chronic (6) Uncomplicated sedative, hypnotic or anxiolytic withdrawal Status: Acute - AMA Did Patient Leave Against Medical Advice: No
== END 2019-01-12 12:13 | disposition other institution (70) | DRG 774 ==
LOC: YASAS 08:05 → Y3N 09:56
PROVIDERS: ADMIT Surgery; ATTEND Surgery
PROC: HZ2ZZZZ Detoxification Services for Substance Abuse Treatment (ICD-10-PCS; principal; 2019-01-07)
DX: F10.230 Alcohol dependence with withdrawal, uncomplicated (principal); F13.230 Sedative, hypnotic or anxiolytic dependence with withdrawal, uncomplicated; F14.20 Cocaine dependence, uncomplicated; F12.20 Cannabis dependence, uncomplicated; F17.210 Nicotine dependence, cigarettes, uncomplicated; L21.9 Seborrheic dermatitis, unspecified; E80.6 Other disorders of bilirubin metabolism; D72.819 Decreased white blood cell count, unspecified; Z88.0 Allergy status to penicillin; Z91.018 Allergy to other foods
CPT/HCPCS: 36415; 80053; 81003; 85027; 86593; 87389

== ENCOUNTER 2019-01-12 12:18 | Inpatient (IN) | payer OTHER ==
--- NOTE | 2019-01-12 15:39 | HP ---
[facility] Rehab Assess/Revision - Admission History Admitted to Rehab from: [facility] Date of Admission to Rehab: 01/12/19 - Findings Detox History & Physical reviewed: Yes Concur with findings: Yes Comments/Additional Findings: for rehab as protocol Inpatient Rehab Admission - Rehab Decision to Admit Inpatient rehab admission?: Yes - Initial Determination Are CD services needed?: Yes Free of communicable disease: Yes Not in need of hospitalization: Yes - Rehab Admission Criteria Previous failed treatment: Yes Poor recovery environment: Yes Comorbidities: Yes Lacks judgement: No Patient is meeting Inpatient Rehab admission criteria:: Yes
[2019-01-12] MEDS ORDERED: IBUPROFEN 400 MG TABLET (FP) PO PRN (15:40)
[2019-01-12] MEDS ORDERED: MENTHOL/PHENOL 1 EACH UD MM PRN (15:40)
[2019-01-12] MEDS ORDERED: MAGNESIUM CITRATE 300 ML BOTTLE PO PRN (15:40)
[2019-01-12] MEDS ORDERED: P-EPHED 60MG/TRIPROLIDI 2.5MG TABLET PO PRN (15:40)
[2019-01-12] MEDS ORDERED: ACETAMINOPHEN 325 MG TABLET (FP) PO PRN (15:40)
[2019-01-12] MEDS ORDERED: LOPERAMIDE HCL 2 MG CAPSULE PO PRN (15:40)
[2019-01-12] MEDS ORDERED: guaiFENesin 200 MG/10 ML 10 ML UNIT-DOSE CUPS PO PRN (15:40)
[2019-01-12] MEDS ORDERED: MAG HYDROX/AL HYDROX/SIMETH 30 ML UNIT-DOSE CUP PO PRN (15:40)
[2019-01-12] MEDS ORDERED: MAGNESIUM HYDROX 2400MG/30ML ORAL SUSPENSION 30 ML CUP PO PRN (15:40)
[2019-01-12] MEDS ORDERED: hydrOXYzine PAMOATE 25 MG CAPSULE (FP) PO PRN (15:46)
[2019-01-12] MEDS: MELATONIN 5 MG TABLETS PO PRN (22:02)
[2019-01-12] MEDS: THIAMINE HCL 100 MG TABLET (FP) PO SCH (22:03)
[2019-01-13] MEDS: PRENATAL VITAMINS W/ FOLIC ACID TABLET (FP) PO SCH (10:34)
[2019-01-13] MEDS: THIAMINE HCL 100 MG TABLET (FP) PO SCH (21:31)
[2019-01-13] MEDS: MELATONIN 5 MG TABLETS PO PRN (21:32)
[2019-01-14] MEDS: PRENATAL VITAMINS W/ FOLIC ACID TABLET (FP) PO SCH (09:23)
[2019-01-14] MEDS: MELATONIN 5 MG TABLETS PO PRN (21:23)
[2019-01-14] MEDS: THIAMINE HCL 100 MG TABLET (FP) PO SCH (21:23)
[2019-01-15 06:38] VITALS: BP 108/62; PULSE 51; TEMP 97.5
[2019-01-15] MEDS ORDERED: PT OWN MED DRAWER 7, Y5N ONE (07:15)
[2019-01-15] MEDS ORDERED: FLUOCINONIDE 0.05% CREAM (60 GM TUBE) TP SCH (10:00)
--- NOTE | 2019-01-15 10:58 | PN ---
[facility] Progress Note Note: Patient requested to sign out AMA and reported to CAROLYN Celestin that he had a court date this coming week and had to leave. Patient left prior to provider assessment as signed out AMA. Vital Signs Temperature 97.5 F L 01/15/19 06:37 Pulse Rate 51 L 01/15/19 06:37 Respiratory Rate 16 01/15/19 06:37 Blood Pressure 108/62 01/15/19 06:37 O2 Sat by Pulse Oximetry (%)
--- NOTE | 2019-01-15 11:00 | DS ---
[facility] Rehab Discharge Summary - [facility] Rehab Discharge Summary Admission Date: 01/12/19 Discharge Date: 01/15/19 - History Present History: Alcohol dependence, Cannabis dependence, Sedative dependence - Discharge Physical Exam Vital Signs: Vital Signs Temperature 97.5 F L 01/15/19 06:37 Pulse Rate 51 L 01/15/19 06:37 Respiratory Rate 16 01/15/19 06:37 Blood Pressure 108/62 01/15/19 06:37 O2 Sat by Pulse Oximetry (%) Pertinent Admission Physical Exam Findings: Patient left prior to provider assessment - Medication Discharge Medications: Ambulatory Orders NK [No Known Home Medication] 11/26/18 - Medication-Assisted Treatment (MAT) Medication-Assisted Treatment (MAT): No - Discharge Instructions Diet, activity, other medical instructions: Diet: Activity: Other medical instructions: - Diagnosis (1) Alcohol dependence with withdrawal Status: Chronic Qualifiers: Complication of substance-induced condition: uncomplicated (2) Cannabis dependence Status: Chronic (3) Nicotine dependence Status: Chronic Qualifiers: Nicotine product type: unspecified (4) Sedative dependence Status: Chronic - Follow-up Referral Minutes to complete discharge: 0 - AMA Did Patient Leave Against Medical Advice: Yes
== END 2019-01-15 08:43 | disposition left against medical advice (07) | DRG 770 ==
LOC: YASAS 12:18 → Y3W 12:19
PROVIDERS: ADMIT Neuromusculoskeletal Medicine & OMM; ATTEND Neuromusculoskeletal Medicine & OMM
PROC: HZ42ZZZ Group Counseling for Substance Abuse Treatment, Cognitive-Behavioral (ICD-10-PCS; principal; 2019-01-12)
DX: F10.20 Alcohol dependence, uncomplicated (principal); F13.20 Sedative, hypnotic or anxiolytic dependence, uncomplicated; F12.20 Cannabis dependence, uncomplicated; F14.20 Cocaine dependence, uncomplicated; F17.210 Nicotine dependence, cigarettes, uncomplicated; L21.9 Seborrheic dermatitis, unspecified; Z88.0 Allergy status to penicillin; Z86.69 Personal history of other diseases of the nervous system and sense organs

== ENCOUNTER 2020-01-03 09:43 | Inpatient (IN) | payer OTHER ==
--- NOTE | 2020-01-03 10:03 | BHS.RME ---
Substance Use & Tx History - Substance Use History Alcohol Substance amount: 2 six pack beers + 1 liter vodka Frequency of use: Daily Substance route: Oral Date of Last Use: 01/03/20 Cocaine-Crack Substance amount: $100 Frequency of use: Less than 3 times per week Substance route: Smoking Date of Last Use: 01/03/20 Physical/Psych/Mental Status - Behavior General Behavior: Increased activity (restlessness, agitation) Eye Contact: Normal - Cooperativeness Cooperativeness: Cooperative - Thinking Thought Processes: Tight, Logical, Goal Directed - Physical Health Problems Is patient presently having any pain?: No Does patient presently have any injuries (include location): No Does patient currently have a fever: No Is patient : No CIWA Nausea/Vomitin-Int. Nausea w/Dry Heave Muscle Tremors: 1-None Visible, but [place] Anxiety: 0-No Anxiety, at Ease Agitation: 0-Normal Activity Paroxysmal Sweats: 5 Orientation: 1-Uncertain about Date Tacttile Disturbances: 0-None Auditory Disturbances: 0-None Visual Disturbances: 0-None Headache: 2-Mild CIWA-Ar Total Score: 13
[2020-01-03 10:47] VITALS: BMI 35.4
--- NOTE | 2020-01-03 11:04 | HP ---
CIWA Score Nausea/Vomitin-Int. Nausea w/Dry Heave Muscle Tremors: 1-None Visible, but [place] Anxiety: 0-No Anxiety, at Ease Agitation: 0-Normal Activity Paroxysmal Sweats: 5 Orientation: 1-Uncertain about Date Tacttile Disturbances: 0-None Auditory Disturbances: 0-None Visual Disturbances: 0-None Headache: 2-Mild CIWA-Ar Total Score: 13 - Admission Criteria OASAS Guidelines: Admission for Medically Managed Detox: Requires at least one of the followin. CIWA greater than 12 2. Seizures within the past 24 hours 3. Delirium tremens within the past 24 hours 4. Hallucinations within the past 24 hours 5. Acute intervention needed for co occurring medical disorder 6. Acute intervention needed for co occurring psychiatric disorder 7. Severe withdrawal that cannot be handled at a lower level of care (continued vomiting, continued diarrhea, abnormal vital signs) requiring intravenous medication and/or fluids 8. Admitting History and Physical - Admission Chief Complaint: " I need help to stop using alcohol." History of Present Illness: 54 year old male with history of alcohol dependence with withdrawals, cocaine use disorder and nicotine dependence seeking detox. Substance Use & Tx History - Substance Use History Alcohol Substance amount: 2 six pack beers + 1 liter vodka Frequency of use: Daily Substance route: Oral Date of Last Use: atient admits to blackouts, and last one just 2 weeks ago, and need for eye kiln packer daily to stave off withdrawals. Cocaine-Crack Substance amount: $100 Frequency of use: Less than 3 times per week Substance route: Smoking Date of Last Use: 01/03/20 PMH: HIV disease, Obesity, Syphillis treated in 2006 Psurg: None Psych: None Lives along in [place] no legal problems. HEATHER=0.075 CIWA=13 Urine Tox: TESSIE, BZO Patient meets criteria as he has many medical co-morbidities History Source: Patient Limitations to Obtaining History: No Limitations - Past Medical History Infectious Disease: Yes: HIV - Past Surgical History Past Surgical History: Yes: None - Smoking History Smoking history: Current every day smoker Have you smoked in the past 12 months: Yes Aproximately how many cigarettes per day: 6 - Alcohol/Substance Use Hx Alcohol Use: Yes History of Substance Use: reports: None - Social History Usual Living Arrangement: Yes: Alone Do you think of yourself as: Straight/Heterosexual Occupation: unemployed History of Recent Travel: No Admission ROS BHS - HPI Allergies/Adverse Reactions: Allergies Allergy/AdvReac Type Severity Reaction Status Date / Time chicken derived Allergy Intermediate Rash Verified 01/03/20 10:34 Penicillins Allergy Intermediate Rash Verified 01/03/20 10:34 Patient History - Patient Medical History Hx Anemia: No Hx Asthma: No Hx Chronic Obstructive Pulmonary Disease (COPD): No Hx Cancer: No Hx Cardiac Disorders: No Hx Congestive Heart Failure: No Hx Hypertension: No Hx Hypercholesterolemia: No Hx Pacemaker: No HX Cerebrovascular Accident: No Hx Seizures: No Hx Dementia: No Hx Diabetes: No Hx Gastrointestinal Disorders: No Hx Liver Disease: No Hx Genitourinary Disorders: No Hx Sexually Transmitted Disorders: Yes (syphillis) Hx Renal Disease (ESRD): No Hx Thyroid Disease: No Hx Human Immunodeficiency Virus (HIV): No ( last tested 2016 negative) Hx Hepatitis C: No (denies) Hx Depression: No Hx Suicide Attempt: No Hx Bipolar Disorder: No Hx Schizophrenia: No - Patient Surgical History Past Surgical History: No Hx Neurologic Surgery: No Hx Cataract Extraction: No Hx Cardiac Surgery: No Hx Lung Surgery: No Hx Breast Surgery: No Hx Breast Biopsy: No Hx Abdominal Surgery: No Hx Appendectomy: No Hx Cholecystectomy: No Hx Genitourinary Surgery: No Hx Section: No Hx Orthopedic Surgery: No Anesthesia Reaction: No - PPD History Previous Implant?: Yes Documented Results: Negative w/proof Implanted On Prior [facility] Admission?: Yes Date: 10/03/18 Results: 0 mm - Reproductive History Patient : (n/a) - Smoking Cessation Smoking history: Current every day smoker Have you smoked in the past 12 months: Yes Aproximately how many cigarettes per day: 6 Cigars Per Day: 0 Hx Chewing Tobacco Use: No Initiated information on smoking cessation: Yes 'Breaking Loose' booklet given: 01/03/20 - Substances abused Alcohol Substance route: Oral Frequency: Daily Amount used: 1 liter of vodka & (2) 6pk Age of first use: 12 Date of last use: 01/03/20 Crack Substance route: Smoking Frequency: 3-6 times per week Amount used: $100 Age of first use: 24 Date of last use: 01/03/20 Admission Physical Exam BHS - Vital Signs Vital Signs: Vital Signs - 24 hr 01/03/20 10:34 Temperature 97.8 F Pulse Rate 95 H Respiratory 18 Rate Blood Pressure 109/70 - Physical General Appearance: Yes: Mild Distress, Irritable, Sweating HEENTM: Yes: EOMI, Hearing grossly Normal, Normal ENT Inspection, Normocephalic, Normal Voice, ENMA, Pharynx Normal, Tm's normal, Other (conjunctival erythema) Respiratory: Yes: Chest Non-Tender, Lungs Clear, Normal Breath Sounds, No Respiratory Distress, No Accessory Muscle Use Neck: Yes: No masses,lesions,Nodules, Supple, Trachea in good position Cardiology: Yes: Regular Rhythm, S1, S2, Tachycardia Abdominal: Yes: Normal Bowel Sounds, Non Tender, Soft, Protuberent Genitourinary: Yes: Within Normal Limits Back: Yes: Normal Inspection Musculoskeletal: Yes: full range of Motion, Gait Steady, Pelvis Stable Extremities: Yes: Normal Capillary Refill, Normal Inspection, Normal Range of Motion, Non-Tender Neurological: Yes: parliamentary archivist II-XII NML intact, Fully Oriented, Alert, Motor Strength 5/5, Normal Mood/Affect, Normal Response Integumentary: Yes: Normal Color, Warm Lymphatic: Yes: Within Normal Limits Screened but not Admitted - Documentation of Visit Screened but not Admitted: No Breathalyzer - Breathalyzer Breathalyzer: 0.075 Vital Signs - Vital Signs Vital signs refused: No Temperature: 97.8 F Pulse Rate: 95 Respiratory Rate: 18 Blood Pressure: 109/70 BP Location: Left Arm Blood Pressure position: Sitting - Height Height: 5 ft 9 in - Weight Weight: 240 lb Weight measurement method: Standing scale - BMI Body Mass Index (BMI): 35.4 - Bowel Function Bowel Movement: No Urine Drug Screen - Test Device Lot number: [id number] Expiration date: 08/14/21 - Control Is test valid?: Yes - Results Drug screen NEGATIVE: No Urine drug screen results: TESSIE-Cocaine, BZO-Benzodiazepines Inpatient Rehab Admission - Rehab Decision to Admit Inpatient rehab admission?: No
[2020-01-03] MEDS ORDERED: NICOTINE POLACRILEX 2 MG GUM BUC PRN (11:11)
[2020-01-03] MEDS ORDERED: ACETAMINOPHEN 325 MG TABLET (FP) PO PRN ×2 (11:11)
[2020-01-03] MEDS ORDERED: IBUPROFEN 400 MG TABLET (FP) PO PRN (11:11)
[2020-01-03] MEDS ORDERED: MAGNESIUM CITRATE 300 ML BOTTLE PO PRN (11:11)
[2020-01-03] MEDS ORDERED: BISMUTH SUBSALICYLATE 524 MG/30 ML UD PO PRN (11:11)
[2020-01-03] MEDS ORDERED: chlordiazePOXIDE HCL 25 MG CAPSULE PO PRN (11:11)
[2020-01-03] MEDS ORDERED: METHOCARBAMOL 500 MG TABLET PO PRN (11:11)
[2020-01-03] MEDS ORDERED: MAGNESIUM HYDROX 2400MG/30ML ORAL SUSPENSION 30 ML CUP PO PRN (11:11)
[2020-01-03] MEDS ORDERED: MAG HYDROX/AL HYDROX/SIMETH 30 ML UNIT-DOSE CUP PO PRN (11:11)
[2020-01-03] MEDS ORDERED: MENTHOL/PHENOL 1 EACH UD MM PRN (11:11)
[2020-01-03] MEDS ORDERED: SELENIUM SULFIDE 2.25% 180 ML SHAMPOO TP SCH (12:00)
[2020-01-03] MEDS ORDERED: ONDANSETRON *ODT* 4 MG TABLET SL ONE (12:00)
[2020-01-03] MEDS: chlordiazePOXIDE HCL 25 MG CAPSULE PO SCH ×2 (12:13→18:23)
[2020-01-03] MEDS: NICOTINE 7 MG/24 HOURS TOPICAL PATCH TD SCH (12:15)
[2020-01-03] MEDS: PRENATAL VITAMINS W/ FOLIC ACID TABLET (FP) PO SCH (12:15)
[2020-01-03] MEDS: FLUOCINONIDE 0.05% TOP OINT (60 GM TUBE) TP SCH (12:28)
[2020-01-03] MEDS: hydrOXYzine PAMOATE 25 MG CAPSULE (FP) PO SCH ×2 (13:04→18:23)
[2020-01-03 15:03] LABS: HEMATOCRIT 42.2 % (35.4-49); HEMOGLOBIN 14.2 GM/dL (11.7-16.9); MCHC 33.6 g/dl (32.0-35.9); MEAN CELL VOLUME 92.2 fl (80-96); MEAN PLT VOLUME 8.7 fl (7.5-11.1); PLATELET COUNT 323 K/MM3 (134-434); RBC 4.57 M/mm3 (4.00-5.60); RDW 15.1 % (11.9-15.9); WHITE BLOOD COUNT 5.8 K/mm3 (4.0-10.0)
[2020-01-03 15:05] LABS: BILIRUBIN,TOTAL 0.7 mg/dL (0.2-1); BLOOD UREA NITROGEN 11.5 mg/dL (7-18); CALCIUM 8.9 mg/dL (8.5-10.1); POTASSIUM 3.9 mmol/L (3.5-5.1); TOT PROT 7.4 g/dl (6.4-8.2)
[2020-01-04] MEDS: FLUOCINONIDE 0.05% TOP OINT (60 GM TUBE) TP SCH ×3 (00:01→22:55)
[2020-01-04] MEDS: hydrOXYzine PAMOATE 25 MG CAPSULE (FP) PO SCH ×3 (00:01→10:08)
[2020-01-04] MEDS: MELATONIN 5 MG TABLETS PO SCH ×2 (00:01→22:55)
[2020-01-04] MEDS: chlordiazePOXIDE HCL 25 MG CAPSULE PO SCH ×5 (00:01→22:55)
[2020-01-04] MEDS: THIAMINE HCL 100 MG TABLET (FP) PO SCH ×2 (00:01→22:55)
[2020-01-04] MEDS ORDERED: MASKS NR ONE (10:05)
[2020-01-04] MEDS: NICOTINE 7 MG/24 HOURS TOPICAL PATCH TD SCH (10:06)
[2020-01-04] MEDS: PRENATAL VITAMINS W/ FOLIC ACID TABLET (FP) PO SCH (10:06)
[2020-01-04] MEDS: SELENIUM SULFIDE 2.5% LOTION 4 OZ. TP SCH (10:06)
[2020-01-04] MEDS ORDERED: hydrOXYzine PAMOATE 25 MG CAPSULE (FP) PO PRN (12:31)
--- NOTE | 2020-01-04 12:32 | PN ---
S CIWA - CIWA Score Nausea/Vomitin-No Nausea/No Vomiting Muscle Tremors: 3 Anxiety: 3 Agitation: 3 Paroxysmal Sweats: 3 Orientation: 0-Oriented Tacttile Disturbances: 0-None Auditory Disturbances: 0-None Visual Disturbances: 0-None Headache: 0-None Present CIWA-Ar Total Score: 12 S Progress Note (SOAP) Subjective: agitation sweats diarrhea restless interrupted sleep Objective: 01/04/20 12:32 Vital Signs Temperature 98.0 F 01/04/20 09:10 Pulse Rate 62 01/04/20 09:10 Respiratory Rate 18 01/04/20 09:10 Blood Pressure 110/59 L 01/04/20 09:10 O2 Sat by Pulse Oximetry (%) 98 01/04/20 05:37 Laboratory Tests 01/03/20 01/03/20 01/03/20 11:00 11:00 11:00 WBC 5.8 RBC 4.57 Hgb 14.2 Hct 42.2 MCV 92.2 MCH 31.0 MCHC 33.6 RDW 15.1 Plt Count 323 D MPV 8.7 Sodium 140 Potassium 3.9 Chloride 106 Carbon Dioxide 24 Anion Gap 10 BUN 11.5 Creatinine 1.0 Est GFR (CKD-EPI)AfAm 99.85 Est GFR (CKD-EPI)NonAf 86.15 Random Glucose 96 Calcium 8.9 Total Bilirubin 0.7 AST 15 ALT 27 Alkaline Phosphatase 67 Total Protein 7.4 Albumin 4.0 Syphilis Serology Non-reactive COVID-19 (KALEB) 01/03/20 11:00 WBC RBC Hgb Hct MCV MCH MCHC RDW Plt Count MPV Sodium Potassium Chloride Carbon Dioxide Anion Gap BUN Creatinine Est GFR (CKD-EPI)AfAm Est GFR (CKD-EPI)NonAf Random Glucose Calcium Total Bilirubin AST ALT Alkaline Phosphatase Total Protein Albumin Syphilis Serology COVID-19 (KALEB) Not detected labs noted aaox3 ambulating no acute distress Assessment: 01/04/20 12:32 withdrawals Plan: continue detox pepto prn
[2020-01-05] MEDS: chlordiazePOXIDE HCL 25 MG CAPSULE PO SCH ×4 (06:51→22:19)
[2020-01-05] MEDS: FLUOCINONIDE 0.05% TOP OINT (60 GM TUBE) TP SCH ×2 (11:05→22:19)
--- NOTE | 2020-01-05 11:05 | PN ---
[facility] CIWA - CIWA Score Nausea/Vomitin-No Nausea/No Vomiting Muscle Tremors: 3 Anxiety: 3 Agitation: 2 Paroxysmal Sweats: 2 Orientation: 0-Oriented Tacttile Disturbances: 0-None Auditory Disturbances: 0-None Visual Disturbances: 0-None Headache: 0-None Present CIWA-Ar Total Score: 10 S Progress Note (SOAP) Subjective: Complaints of anxiety, sweats, agitation and sweats. Objective: 01/05/20 11:04 Vital Signs 01/05/20 06:08 Temperature 98.3 F Pulse Rate 64 Respiratory 18 Rate Blood Pressure 118/68 O2 Sat by Pulse 96 Oximetry (%) Laboratory Last Values WBC 5.8 K/mm3 (4.0-10.0) 01/03/20 11:00 RBC 4.57 M/mm3 (4.00-5.60) 01/03/20 11:00 Hgb 14.2 GM/dL (11.7-16.9) 01/03/20 11:00 Hct 42.2 % (35.4-49) 01/03/20 11:00 MCV 92.2 fl (80-96) 01/03/20 11:00 MCH 31.0 pg (25.7-33.7) 01/03/20 11:00 MCHC 33.6 g/dl (32.0-35.9) 01/03/20 11:00 RDW 15.1 % (11.9-15.9) 01/03/20 11:00 Plt Count 323 K/MM3 (134-434) D 01/03/20 11:00 MPV 8.7 fl (7.5-11.1) 01/03/20 11:00 Sodium 140 mmol/L (136-145) 01/03/20 11:00 Potassium 3.9 mmol/L (3.5-5.1) 01/03/20 11:00 Chloride 106 mmol/L (98-107) 01/03/20 11:00 Carbon Dioxide 24 mmol/L (21-32) 01/03/20 11:00 Anion Gap 10 MMOL/L (8-16) 01/03/20 11:00 BUN 11.5 mg/dL (7-18) 01/03/20 11:00 Creatinine 1.0 mg/dL (0.55-1.3) 01/03/20 11:00 Est GFR (CKD-EPI)AfAm 99.85 01/03/20 11:00 Est GFR (CKD-EPI)NonAf 86.15 01/03/20 11:00 Random Glucose 96 mg/dL (74-106) 01/03/20 11:00 Calcium 8.9 mg/dL (8.5-10.1) 01/03/20 11:00 Total Bilirubin 0.7 mg/dL (0.2-1) 01/03/20 11:00 AST 15 U/L (15-37) 01/03/20 11:00 ALT 27 U/L (13-61) 01/03/20 11:00 Alkaline Phosphatase 67 U/L (45-117) 01/03/20 11:00 Total Protein 7.4 g/dl (6.4-8.2) 01/03/20 11:00 Albumin 4.0 g/dl (3.4-5.0) 01/03/20 11:00 Syphilis Serology Non-reactive (NONREACTIVE) 01/03/20 11:00 COVID-19 (KALEB) Not detected (Not Detected) 01/03/20 11:00 Labs noted. Assessment: 01/05/20 11:04 Patient was seen and evaluated at bedside, alert and oriented x3, in no acute respiratory distress. Full ROM, ambulating without assistance. Skin warm to touch without lesion. Withdrawal symptoms. Plan: Continue detox protocol.
[2020-01-05] MEDS: SELENIUM SULFIDE 2.5% LOTION 4 OZ. TP SCH (11:06)
[2020-01-05] MEDS: NICOTINE 7 MG/24 HOURS TOPICAL PATCH TD SCH (11:06)
[2020-01-05] MEDS: PRENATAL VITAMINS W/ FOLIC ACID TABLET (FP) PO SCH (11:34)
[2020-01-05] MEDS: THIAMINE HCL 100 MG TABLET (FP) PO SCH (22:19)
[2020-01-05] MEDS: MELATONIN 5 MG TABLETS PO SCH (22:19)
[2020-01-06] MEDS ORDERED: chlordiazePOXIDE HCL 10 MG CAPSULE PO PRN
[2020-01-06] MEDS: chlordiazePOXIDE HCL 10 MG CAPSULE PO SCH ×4 (07:38→22:21)
[2020-01-06] MEDS: PRENATAL VITAMINS W/ FOLIC ACID TABLET (FP) PO SCH (11:08)
[2020-01-06] MEDS: SELENIUM SULFIDE 2.5% LOTION 4 OZ. TP SCH (11:09)
[2020-01-06] MEDS: NICOTINE 7 MG/24 HOURS TOPICAL PATCH TD SCH (11:09)
[2020-01-06] MEDS: FLUOCINONIDE 0.05% TOP OINT (60 GM TUBE) TP SCH ×2 (11:13→22:22)
--- NOTE | 2020-01-06 17:23 | PN ---
S CIWA - CIWA Score Nausea/Vomitin-No Nausea/No Vomiting Muscle Tremors: 2 Anxiety: 2 Agitation: 2 Paroxysmal Sweats: 2 Orientation: 0-Oriented Tacttile Disturbances: 0-None Auditory Disturbances: 0-None Visual Disturbances: 0-None Headache: 0-None Present CIWA-Ar Total Score: 8 BHS Progress Note (SOAP) Subjective: Back pain, headache Objective: 01/06/20 17:21 Last Vital Signs Temp Pulse Resp BP Pulse Ox 97.3 F L 110 H 20 131/89 96 01/06/20 05:24 01/05/20 23:43 01/05/20 23:43 01/05/20 23:43 01/05/20 23:43 Elevated b/p Laboratory Tests 01/03/20 01/03/20 01/03/20 11:00 11:00 11:00 WBC 5.8 RBC 4.57 Hgb 14.2 Hct 42.2 MCV 92.2 MCH 31.0 MCHC 33.6 RDW 15.1 Plt Count 323 D MPV 8.7 Sodium 140 Potassium 3.9 Chloride 106 Carbon Dioxide 24 Anion Gap 10 BUN 11.5 Creatinine 1.0 Est GFR (CKD-EPI)AfAm 99.85 Est GFR (CKD-EPI)NonAf 86.15 Random Glucose 96 Calcium 8.9 Total Bilirubin 0.7 AST 15 ALT 27 Alkaline Phosphatase 67 Total Protein 7.4 Albumin 4.0 Syphilis Serology Non-reactive COVID-19 ([facility]) 01/03/20 11:00 WBC RBC Hgb Hct MCV MCH MCHC RDW Plt Count MPV Sodium Potassium Chloride Carbon Dioxide Anion Gap BUN Creatinine Est GFR (CKD-EPI)AfAm Est GFR (CKD-EPI)NonAf Random Glucose Calcium Total Bilirubin AST ALT Alkaline Phosphatase Total Protein Albumin Syphilis Serology COVID-19 ([facility]) Not detected Labs reviewed Assessment: 01/06/20 17:22 Withdrawal sxs Elevated b/p noted Plan: Continue detox Encourage PO water intake Elevated b/p: most likely anxiety related, monitor b/p
[2020-01-06] MEDS: MELATONIN 5 MG TABLETS PO SCH (22:21)
[2020-01-06] MEDS: THIAMINE HCL 100 MG TABLET (FP) PO SCH (22:21)
[2020-01-07] MEDS: chlordiazePOXIDE HCL 10 MG CAPSULE PO SCH ×2 (06:23→18:10)
[2020-01-07] MEDS: NICOTINE 7 MG/24 HOURS TOPICAL PATCH TD SCH (10:13)
[2020-01-07] MEDS: PRENATAL VITAMINS W/ FOLIC ACID TABLET (FP) PO SCH (10:13)
[2020-01-07] MEDS: FLUOCINONIDE 0.05% TOP OINT (60 GM TUBE) TP SCH ×2 (10:13→22:10)
[2020-01-07] MEDS: SELENIUM SULFIDE 2.5% LOTION 4 OZ. TP SCH (10:14)
[2020-01-07] MEDS ORDERED: MELATONIN 5 MG TABLETS PO PRN (10:28)
--- NOTE | 2020-01-07 10:32 | PN ---
BHS CIWA - CIWA Score Nausea/Vomitin-No Nausea/No Vomiting Muscle Tremors: 2 Anxiety: 1-Mildly Anxious Agitation: 1-Slight > Activity Paroxysmal Sweats: 1-Minimal Palms Moist Orientation: 0-Oriented Tacttile Disturbances: 0-None Auditory Disturbances: 0-None Visual Disturbances: 0-None Headache: 0-None Present CIWA-Ar Total Score: 5 BHS Progress Note (SOAP) Subjective: I want Benadryl for tonight it helps me sleep. melatonin does not help me. Objective: 01/07/20 10:30 Vital Signs Temperature 98.4 F 01/07/20 08:52 Pulse Rate 85 01/07/20 08:52 Respiratory Rate 20 01/07/20 08:52 Blood Pressure 117/72 01/07/20 08:52 O2 Sat by Pulse Oximetry (%) 97 01/06/20 20:29 aaox3 ambulating no acute distress Assessment: 01/07/20 10:31 withdrawals sx Plan: continue detox Benadryl 25mg x one dose for tonight ordered as per pt request d/c in am
[2020-01-07] MEDS ORDERED: diphenhydrAMINE HCL 25 MG CAPSULE (FP) PO ONE (22:00)
[2020-01-07] MEDS: diphenhydrAMINE HCL 25 MG CAPSULE (FP) PO ONE (22:09)
[2020-01-07] MEDS: THIAMINE HCL 100 MG TABLET (FP) PO SCH (22:09)
[2020-01-07 23:30] VITALS: BP 116/74; PULSE 75; TEMP 97.8
[2020-01-08] MEDS ORDERED: chlordiazePOXIDE HCL 10 MG CAPSULE PO ONE (05:00)
--- NOTE | 2020-01-08 10:44 | DS ---
[facility] Detox Discharge Summary Admission Date: 01/03/20 Discharge Date: 01/08/20 - History Present History: Alcohol Dependence, Cannabis Dependence, Cocaine Dependence - Physical Exam Results Vital Signs: Vital Signs Temperature 97.8 F 01/07/20 20:50 Pulse Rate 75 01/07/20 20:50 Respiratory Rate 20 01/07/20 20:50 Blood Pressure 116/74 01/07/20 20:50 O2 Sat by Pulse Oximetry (%) 98 01/07/20 20:50 Pertinent Admission Physical Exam Findings: Vital Signs Temperature 97.8 F 01/07/20 20:50 Pulse Rate 75 01/07/20 20:50 Respiratory Rate 20 01/07/20 20:50 Blood Pressure 116/74 01/07/20 20:50 O2 Sat by Pulse Oximetry (%) 98 01/07/20 20:50 Laboratory Tests 01/03/20 01/03/20 01/03/20 11:00 11:00 11:00 WBC 5.8 RBC 4.57 Hgb 14.2 Hct 42.2 MCV 92.2 MCH 31.0 MCHC 33.6 RDW 15.1 Plt Count 323 D MPV 8.7 Sodium 140 Potassium 3.9 Chloride 106 Carbon Dioxide 24 Anion Gap 10 BUN 11.5 Creatinine 1.0 Est GFR (CKD-EPI)AfAm 99.85 Est GFR (CKD-EPI)NonAf 86.15 Random Glucose 96 Calcium 8.9 Total Bilirubin 0.7 AST 15 ALT 27 Alkaline Phosphatase 67 Total Protein 7.4 Albumin 4.0 Syphilis Serology Non-reactive COVID-19 ([facility]) 01/03/20 11:00 WBC RBC Hgb Hct MCV MCH MCHC RDW Plt Count MPV Sodium Potassium Chloride Carbon Dioxide Anion Gap BUN Creatinine Est GFR (CKD-EPI)AfAm Est GFR (CKD-EPI)NonAf Random Glucose Calcium Total Bilirubin AST ALT Alkaline Phosphatase Total Protein Albumin Syphilis Serology COVID-19 ([facility]) Not detected aaox3 ambulating no acute distress - Treatment Hospital Course: Detox Protocol Followed, Detoxed Safely, Responded well, Discharged Condition Good, Rehab Referral Accepted - Medication Discharge Medications: Ambulatory Orders NK [No Known Home Medication] 11/26/18 - Diagnosis (1) Substance-induced sleep disorder Status: Acute (2) Uncomplicated sedative, hypnotic or anxiolytic withdrawal Status: Chronic (3) Alcohol dependence with withdrawal Status: Chronic Qualifiers: Complication of substance-induced condition: uncomplicated (4) Cannabis dependence Status: Chronic (5) Cocaine dependence Status: Chronic (6) Nicotine dependence Status: Chronic Qualifiers: Nicotine product type: cigarettes Substance use status: uncomplicated Qualified Code(s): F17.210 - Nicotine dependence, cigarettes, uncomplicated (7) 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
== END 2020-01-08 09:18 | disposition home or self-care (01) | DRG 774 ==
LOC: YASAS 09:43 → Y6N 10:37
PROVIDERS: ADMIT Allergy & Immunology; ATTEND Allergy & Immunology
PROC: HZ2ZZZZ Detoxification Services for Substance Abuse Treatment (ICD-10-PCS; principal; 2020-01-03)
DX: F10.230 Alcohol dependence with withdrawal, uncomplicated (principal); F13.230 Sedative, hypnotic or anxiolytic dependence with withdrawal, uncomplicated; F14.20 Cocaine dependence, uncomplicated; F12.20 Cannabis dependence, uncomplicated; F17.210 Nicotine dependence, cigarettes, uncomplicated; F19.282 Other psychoactive substance dependence with psychoactive substance-induced sleep disorder; L21.9 Seborrheic dermatitis, unspecified; E66.9 Obesity, unspecified; Z68.35 Body mass index [BMI] 35.0-35.9, adult; Z86.19 Personal history of other infectious and parasitic diseases; Z88.0 Allergy status to penicillin; Z91.018 Allergy to other foods
CPT/HCPCS: 36415; 80053; 85027; 86780; U0003

== ENCOUNTER 2021-05-27 15:45 | Inpatient (IN) | payer OTHER ==
[2021-05-27] MEDS ORDERED: BISMUTH SUBSALICYLATE 524 MG/30 ML PO PRN (20:34)
[2021-05-27] MEDS ORDERED: MENTHOL/PHENOL 1 EACH UD MM PRN (20:34)
[2021-05-27] MEDS ORDERED: MAG HYDROX/AL HYDROX/SIMETH 30 ML UNIT-DOSE CUP PO PRN (20:34)
[2021-05-27] MEDS ORDERED: ACETAMINOPHEN 325 MG TABLET (FP) PO PRN ×2 (20:34)
[2021-05-27] MEDS ORDERED: ONDANSETRON *ODT* 4 MG TABLET SL PRN (20:34)
[2021-05-27] MEDS ORDERED: MAGNESIUM HYDROX 2400MG/30ML ORAL SUSPENSION 30 ML CUP PO PRN (20:34)
[2021-05-27] MEDS ORDERED: IBUPROFEN 400 MG TABLET (FP) PO PRN (20:34)
[2021-05-27] MEDS ORDERED: MAGNESIUM CITRATE 300 ML BOTTLE PO PRN (20:34)
[2021-05-27] MEDS: THIAMINE HCL 100 MG TABLET (FP) PO SCH (23:51)
[2021-05-27] MEDS: MELATONIN 5 MG TABLETS PO SCH (23:51)
[2021-05-28 09:50] VITALS: BMI 33.3
[2021-05-28] MEDS: PRENATAL VITAMINS W/ FOLIC ACID TABLET (FP) PO SCH (10:22)
[2021-05-28] MEDS: diazePAM 5 MG TABLET PO SCH ×3 (11:56→22:07)
[2021-05-28 13:12] LABS: HEMATOCRIT 42.7 % (35.4-49); HEMOGLOBIN 13.8 GM/dL (11.7-16.9); MCH 30.3 pg (25.7-33.7); MCHC 32.4 g/dl (32.0-35.9); MEAN CELL VOLUME 93.2 fl (80-96); MEAN PLT VOLUME 8.2 fl (7.5-11.1); PLATELET COUNT 313 10^3/uL (134-434); RBC 4.57 M/mm3 (4.00-5.60); RDW 15.3 % (11.9-15.9); WHITE BLOOD COUNT 5.4 K/mm3 (4.0-10.0)
[2021-05-28 13:29] LABS: ALBUMIN 3.9 g/dl (3.4-5.0); BILIRUBIN,TOTAL 0.8 mg/dL (0.2-1); BLOOD UREA NITROGEN 16.4 mg/dL (7-18)
[2021-05-28 13:31] LABS: CALCIUM 8.8 mg/dL (8.5-10.1)
[2021-05-28] MEDS: FLUOCINONIDE 0.05% TOP OINT (60 GM TUBE) TP SCH ×2 (17:27→22:10)
[2021-05-28] MEDS: hydrOXYzine PAMOATE 25 MG CAPSULE (FP) PO PRN ×2 (17:29→22:12)
[2021-05-28] MEDS: MELATONIN 5 MG TABLETS PO SCH (22:07)
[2021-05-28] MEDS: THIAMINE HCL 100 MG TABLET (FP) PO SCH (22:07)
[2021-05-29] MEDS: diazePAM 5 MG TABLET PO SCH ×3 (06:21→22:00)
[2021-05-29] MEDS: PRENATAL VITAMINS W/ FOLIC ACID TABLET (FP) PO SCH (10:34)
[2021-05-29] MEDS: hydrOXYzine PAMOATE 25 MG CAPSULE (FP) PO PRN ×2 (10:34→17:59)
[2021-05-29] MEDS: METHOCARBAMOL 500 MG TABLET PO PRN (10:34)
[2021-05-29] MEDS: FLUOCINONIDE 0.05% TOP OINT (60 GM TUBE) TP SCH ×4 (10:35→22:03)
[2021-05-29] MEDS: SELENIUM SULFIDE 2.25% 180 ML SHAMPOO TP SCH (15:28)
[2021-05-29] MEDS: THIAMINE HCL 100 MG TABLET (FP) PO SCH (21:59)
[2021-05-29] MEDS: MELATONIN 5 MG TABLETS PO SCH (22:00)
[2021-05-30] MEDS: diazePAM 5 MG TABLET PO SCH ×2 (07:20→18:36)
[2021-05-30] MEDS: PRENATAL VITAMINS W/ FOLIC ACID TABLET (FP) PO SCH (11:36)
[2021-05-30] MEDS: FLUOCINONIDE 0.05% TOP OINT (60 GM TUBE) TP SCH ×4 (11:37→22:26)
[2021-05-30] MEDS: SELENIUM SULFIDE 2.25% 180 ML SHAMPOO TP SCH (11:38)
[2021-05-30] MEDS: hydrOXYzine PAMOATE 25 MG CAPSULE (FP) PO PRN (22:26)
[2021-05-30] MEDS: MELATONIN 5 MG TABLETS PO SCH (22:26)
[2021-05-30] MEDS: METHOCARBAMOL 500 MG TABLET PO PRN (22:26)
[2021-05-30] MEDS: THIAMINE HCL 100 MG TABLET (FP) PO SCH (22:26)
[2021-05-31] MEDS ORDERED: diazePAM 5 MG TABLET PO ONE (06:00)
[2021-05-31 07:07] VITALS: BP 129/69; PULSE 54; TEMP 97.3
== END 2021-05-31 09:34 | disposition home or self-care (01) | DRG 774 ==
LOC: YASAS 15:45 → Y6N 23:09
PROVIDERS: ADMIT Allergy & Immunology; ATTEND Allergy & Immunology
PROC: HZ2ZZZZ Detoxification Services for Substance Abuse Treatment (ICD-10-PCS; principal; 2021-05-27)
DX: F10.230 Alcohol dependence with withdrawal, uncomplicated (principal); F14.20 Cocaine dependence, uncomplicated; F12.20 Cannabis dependence, uncomplicated; F17.213 Nicotine dependence, cigarettes, with withdrawal; Z21 Asymptomatic human immunodeficiency virus [HIV] infection status; L21.9 Seborrheic dermatitis, unspecified
CPT/HCPCS: 36415; 80053; 85027; 86780; C9803; U0003; U0005

== ENCOUNTER 2021-10-08 08:27 | Inpatient (IN) | payer OTHER ==
[2021-10-08] MEDS ORDERED: ACETAMINOPHEN 325 MG TABLET (FP) PO PRN ×2 (10:38)
[2021-10-08] MEDS ORDERED: MAGNESIUM CITRATE 300 ML BOTTLE PO PRN (10:38)
[2021-10-08] MEDS ORDERED: MAG HYDROX/AL HYDROX/SIMETH 30 ML UNIT-DOSE CUP PO PRN (10:38)
[2021-10-08] MEDS ORDERED: LOPERAMIDE HCL 2 MG CAPSULE PO PRN (10:38)
[2021-10-08] MEDS ORDERED: IBUPROFEN 600 MG TABLET (FP) PO PRN (10:38)
[2021-10-08] MEDS ORDERED: DICYCLOMINE HCL 10 MG CAPSULE PO PRN (10:38)
[2021-10-08] MEDS ORDERED: BENZOCAINE/MENTHOL (CHLORASEPTIC ) LOZENGE MM PRN (10:38)
[2021-10-08] MEDS ORDERED: IBUPROFEN 400 MG TABLET (FP) PO PRN (10:38)
[2021-10-08] MEDS ORDERED: NICOTINE 10 MG CARTRIDGE (INHALER) IH PRN (10:38)
[2021-10-08] MEDS ORDERED: ONDANSETRON *ODT* 4 MG TABLET SL PRN (10:38)
[2021-10-08] MEDS ORDERED: MAGNESIUM HYDROX 2400MG/30ML ORAL SUSPENSION 30 ML CUP PO PRN (10:38)
[2021-10-08] MEDS ORDERED: BISMUTH SUBSALICYLATE 262 MG/15 ML BTL PO PRN (10:38)
[2021-10-08 11:01] VITALS: BMI 34.7
[2021-10-08 13:53] LABS: HEMATOCRIT 40.5 % (35.4-49); MCH 31.2 pg (25.7-33.7); MCHC 34.4 g/dl (32.0-35.9); MEAN CELL VOLUME 90.5 fl (80-96); PLATELET COUNT 350 10^3/uL (134-434); RBC 4.48 M/mm3 (4.00-5.60); RDW 15.1 % (11.9-15.9); WHITE BLOOD COUNT 5.9 K/mm3 (4.0-10.0)
[2021-10-08 14:13] LABS: ALBUMIN 4.7 g/dl (3.4-5.0); BLOOD UREA NITROGEN 14.4 mg/dL (7-18); CALCIUM 9.2 mg/dL (8.5-10.1)
[2021-10-08 14:18] LABS: CREATININE 1.1 mg/dL (0.55-1.3)
[2021-10-08 14:19] LABS: BILIRUBIN,TOTAL 0.7 mg/dL (0.2-1); TOT PROT 8.1 g/dl (6.4-8.2)
[2021-10-08 14:51] LABS: HIV INTERPRETATION NEGATIVE (NEGATIVE)
[2021-10-08] MEDS: SELENIUM SULFIDE 2.25% 180 ML SHAMPOO TP SCH (15:10)
[2021-10-08] MEDS: hydrOXYzine PAMOATE 25 MG CAPSULE (FP) PO SCH ×3 (15:15→22:14)
[2021-10-08] MEDS: METHOCARBAMOL 500 MG TABLET PO PRN (22:13)
[2021-10-08] MEDS: THIAMINE HCL 100 MG TABLET (FP) PO SCH (22:14)
[2021-10-08] MEDS: MELATONIN 5 MG TABLETS PO SCH (22:14)
[2021-10-09] MEDS: hydrOXYzine PAMOATE 25 MG CAPSULE (FP) PO SCH ×5 (07:14→22:46)
[2021-10-09] MEDS ORDERED: chlordiazePOXIDE HCL 25 MG CAPSULE PO SCH (09:46)
[2021-10-09] MEDS ORDERED: chlordiazePOXIDE HCL 25 MG CAPSULE PO PRN ×2 (09:46→09:50)
[2021-10-09] MEDS ORDERED: FLUOCINONIDE 0.05% TOP OINT (15 GM TUBE) TP SCH (10:00)
[2021-10-09] MEDS: SELENIUM SULFIDE 2.25% 180 ML SHAMPOO TP SCH (10:30)
[2021-10-09] MEDS: PRENATAL VITAMINS W/ FOLIC ACID TABLET (FP) PO SCH (10:30)
[2021-10-09] MEDS: chlordiazePOXIDE HCL 25 MG CAPSULE PO SCH ×3 (10:31→22:46)
[2021-10-09] MEDS: THIAMINE HCL 100 MG TABLET (FP) PO SCH (22:46)
[2021-10-09] MEDS: MELATONIN 5 MG TABLETS PO SCH (22:46)
[2021-10-10] MEDS: chlordiazePOXIDE HCL 25 MG CAPSULE PO SCH ×4 (06:55→22:40)
[2021-10-10] MEDS: hydrOXYzine PAMOATE 25 MG CAPSULE (FP) PO SCH ×5 (07:03→22:40)
[2021-10-10] MEDS: FLUOCINONIDE 0.05% TOP OINT (60 GM TUBE) TP SCH (10:05)
[2021-10-10] MEDS: SELENIUM SULFIDE 2.25% 180 ML SHAMPOO TP SCH (10:09)
[2021-10-10] MEDS: PRENATAL VITAMINS W/ FOLIC ACID TABLET (FP) PO SCH (10:09)
[2021-10-10] MEDS: MELATONIN 5 MG TABLETS PO SCH (22:40)
[2021-10-10] MEDS: THIAMINE HCL 100 MG TABLET (FP) PO SCH (22:40)
[2021-10-11] MEDS ORDERED: chlordiazePOXIDE HCL 25 MG CAPSULE PO SCH (05:00)
[2021-10-11] MEDS: chlordiazePOXIDE HCL 25 MG CAPSULE PO SCH ×4 (08:21→22:34)
[2021-10-11] MEDS: hydrOXYzine PAMOATE 25 MG CAPSULE (FP) PO SCH ×5 (08:21→22:35)
[2021-10-11] MEDS: PRENATAL VITAMINS W/ FOLIC ACID TABLET (FP) PO SCH (10:47)
[2021-10-11] MEDS: METHOCARBAMOL 500 MG TABLET PO PRN ×2 (10:48→22:34)
[2021-10-11] MEDS: FLUOCINONIDE 0.05% TOP OINT (60 GM TUBE) TP SCH (10:48)
[2021-10-11] MEDS: SELENIUM SULFIDE 2.25% 180 ML SHAMPOO TP SCH (10:49)
[2021-10-11] MEDS: THIAMINE HCL 100 MG TABLET (FP) PO SCH (22:34)
[2021-10-11] MEDS: MELATONIN 5 MG TABLETS PO SCH (22:35)
[2021-10-12] MEDS ORDERED: chlordiazePOXIDE HCL 10 MG CAPSULE PO PRN ×2
[2021-10-12] MEDS ORDERED: chlordiazePOXIDE HCL 10 MG CAPSULE PO SCH (05:00)
[2021-10-12] MEDS: hydrOXYzine PAMOATE 25 MG CAPSULE (FP) PO SCH ×2 (06:22→10:40)
[2021-10-12] MEDS: chlordiazePOXIDE HCL 10 MG CAPSULE PO SCH ×2 (06:23→10:40)
[2021-10-12 09:45] VITALS: BP 132/82; PULSE 66; TEMP 97.6
[2021-10-12] MEDS: METHOCARBAMOL 500 MG TABLET PO PRN (10:40)
[2021-10-12] MEDS: PRENATAL VITAMINS W/ FOLIC ACID TABLET (FP) PO SCH (10:40)
[2021-10-12] MEDS: FLUOCINONIDE 0.05% TOP OINT (60 GM TUBE) TP SCH (10:41)
[2021-10-12] MEDS: SELENIUM SULFIDE 2.25% 180 ML SHAMPOO TP SCH (10:41)
[2021-10-13] MEDS ORDERED: chlordiazePOXIDE HCL 10 MG CAPSULE PO SCH ×2 (05:00)
[2021-10-14] MEDS ORDERED: chlordiazePOXIDE HCL 10 MG CAPSULE PO ONE ×2 (05:00)
== END 2021-10-12 12:27 | disposition left against medical advice (07) | DRG 770 ==
LOC: YASAS 08:27 → Y6N 11:03
PROVIDERS: ADMIT Allergy & Immunology; ATTEND Surgery
PROC: HZ2ZZZZ Detoxification Services for Substance Abuse Treatment (ICD-10-PCS; principal; 2021-10-08)
DX: F10.230 Alcohol dependence with withdrawal, uncomplicated (principal); F14.20 Cocaine dependence, uncomplicated; F12.20 Cannabis dependence, uncomplicated; F17.213 Nicotine dependence, cigarettes, with withdrawal; Z21 Asymptomatic human immunodeficiency virus [HIV] infection status; Z88.0 Allergy status to penicillin; Z91.014 Allergy to mammalian meats
CPT/HCPCS: 36415; 80053; 85027; 86780; 87389; 87811; C9803-CS; U0003; U0005

== ENCOUNTER 2021-11-08 11:06 | Inpatient (IN) | payer OTHER ==
[2021-11-08 13:35] VITALS: BMI 31.0
[2021-11-08] MEDS ORDERED: chlordiazePOXIDE HCL 25 MG CAPSULE PO PRN (15:29)
[2021-11-08] MEDS ORDERED: IBUPROFEN 600 MG TABLET (FP) PO PRN (15:29)
[2021-11-08] MEDS ORDERED: DICYCLOMINE HCL 10 MG CAPSULE PO PRN (15:29)
[2021-11-08] MEDS ORDERED: ACETAMINOPHEN 325 MG TABLET (FP) PO PRN ×2 (15:29)
[2021-11-08] MEDS ORDERED: NICOTINE 10 MG CARTRIDGE (INHALER) IH PRN (15:29)
[2021-11-08] MEDS ORDERED: ONDANSETRON *ODT* 4 MG TABLET SL PRN (15:29)
[2021-11-08] MEDS ORDERED: MAGNESIUM CITRATE 300 ML BOTTLE PO PRN (15:29)
[2021-11-08] MEDS ORDERED: LOPERAMIDE HCL 2 MG CAPSULE PO PRN (15:29)
[2021-11-08] MEDS ORDERED: BENZOCAINE/MENTHOL (CHLORASEPTIC ) LOZENGE MM PRN (15:29)
[2021-11-08] MEDS ORDERED: MAG HYDROX/AL HYDROX/SIMETH 30 ML UNIT-DOSE CUP PO PRN (15:29)
[2021-11-08] MEDS ORDERED: BISMUTH SUBSALICYLATE 524 MG/30 ML PO PRN (15:29)
[2021-11-08] MEDS ORDERED: MAGNESIUM HYDROX 2400MG/30ML ORAL SUSPENSION 30 ML CUP PO PRN (15:29)
[2021-11-08] MEDS ORDERED: IBUPROFEN 400 MG TABLET (FP) PO PRN (15:29)
[2021-11-08] MEDS ORDERED: METHOCARBAMOL 500 MG TABLET PO PRN (15:29)
[2021-11-08] MEDS: chlordiazePOXIDE HCL 25 MG CAPSULE PO SCH ×2 (17:17→22:34)
[2021-11-08] MEDS: hydrOXYzine PAMOATE 25 MG CAPSULE (FP) PO SCH ×2 (17:19→22:34)
[2021-11-08] MEDS: FLUOCINONIDE 0.05% TOP OINT (60 GM TUBE) TP SCH (22:33)
[2021-11-08] MEDS: THIAMINE HCL 100 MG TABLET (FP) PO SCH (22:34)
[2021-11-08] MEDS: MELATONIN 5 MG TABLETS PO SCH (22:34)
[2021-11-09] MEDS: chlordiazePOXIDE HCL 25 MG CAPSULE PO SCH ×4 (07:52→22:38)
[2021-11-09] MEDS: hydrOXYzine PAMOATE 25 MG CAPSULE (FP) PO SCH ×5 (07:52→22:38)
[2021-11-09] MEDS: FLUOCINONIDE 0.05% TOP OINT (60 GM TUBE) TP SCH ×2 (14:32→22:40)
[2021-11-09] MEDS: SELENIUM SULFIDE 2.5% LOTION 4 OZ. TP SCH ×2 (14:32→18:08)
[2021-11-09] MEDS: PRENATAL VITAMINS W/ FOLIC ACID TABLET (FP) PO SCH (14:32)
[2021-11-09] MEDS: THIAMINE HCL 100 MG TABLET (FP) PO SCH (22:38)
[2021-11-09] MEDS: MELATONIN 5 MG TABLETS PO SCH (22:38)
[2021-11-10] MEDS: hydrOXYzine PAMOATE 25 MG CAPSULE (FP) PO SCH ×5 (06:15→22:15)
[2021-11-10] MEDS: chlordiazePOXIDE HCL 25 MG CAPSULE PO SCH ×5 (06:16→22:15)
[2021-11-10] MEDS: PRENATAL VITAMINS W/ FOLIC ACID TABLET (FP) PO SCH (09:47)
[2021-11-10] MEDS: FLUOCINONIDE 0.05% TOP OINT (60 GM TUBE) TP SCH ×2 (09:55→22:16)
[2021-11-10] MEDS: SELENIUM SULFIDE 2.5% LOTION 4 OZ. TP SCH (09:55)
[2021-11-10] MEDS: MELATONIN 5 MG TABLETS PO SCH (22:15)
[2021-11-10] MEDS: THIAMINE HCL 100 MG TABLET (FP) PO SCH (22:15)
[2021-11-11] MEDS ORDERED: chlordiazePOXIDE HCL 10 MG CAPSULE PO PRN
[2021-11-11] MEDS: hydrOXYzine PAMOATE 25 MG CAPSULE (FP) PO SCH ×5 (06:16→22:32)
[2021-11-11] MEDS: chlordiazePOXIDE HCL 10 MG CAPSULE PO SCH ×4 (06:16→22:33)
[2021-11-11] MEDS: FLUOCINONIDE 0.05% TOP OINT (60 GM TUBE) TP SCH ×2 (10:51→22:34)
[2021-11-11] MEDS: PRENATAL VITAMINS W/ FOLIC ACID TABLET (FP) PO SCH (10:51)
[2021-11-11] MEDS: SELENIUM SULFIDE 2.5% LOTION 4 OZ. TP SCH (10:51)
[2021-11-11] MEDS: MELATONIN 5 MG TABLETS PO SCH (22:32)
[2021-11-11] MEDS: THIAMINE HCL 100 MG TABLET (FP) PO SCH (22:32)
[2021-11-12] MEDS: hydrOXYzine PAMOATE 25 MG CAPSULE (FP) PO SCH ×5 (07:37→22:55)
[2021-11-12] MEDS: chlordiazePOXIDE HCL 10 MG CAPSULE PO SCH ×2 (07:37→19:36)
[2021-11-12] MEDS: FLUOCINONIDE 0.05% TOP OINT (60 GM TUBE) TP SCH ×2 (11:00→22:55)
[2021-11-12] MEDS: PRENATAL VITAMINS W/ FOLIC ACID TABLET (FP) PO SCH ×2 (11:00→11:04)
[2021-11-12] MEDS: SELENIUM SULFIDE 2.5% LOTION 4 OZ. TP SCH (11:00)
[2021-11-12 14:28] LABS: HEMATOCRIT 40.2 % (35.4-49); HEMOGLOBIN 13.5 GM/dL (11.7-16.9); MCH 31.2 pg (25.7-33.7); MCHC 33.5 g/dl (32.0-35.9); MEAN PLT VOLUME 8.4 fl (7.5-11.1); PLATELET COUNT 260 10^3/uL (134-434); RBC 4.32 M/mm3 (4.00-5.60); RDW 15.5 % (11.9-15.9); WHITE BLOOD COUNT 3.3 K/mm3 (4.0-10.0)
[2021-11-12 15:01] LABS: CALCIUM 9.2 mg/dL (8.5-10.1)
[2021-11-12 15:02] LABS: ALBUMIN 3.7 g/dl (3.4-5.0); BLOOD UREA NITROGEN 7.1 mg/dL (7-18)
[2021-11-12 15:06] LABS: TOT PROT 6.9 g/dl (6.4-8.2)
[2021-11-12 15:07] LABS: BILIRUBIN,TOTAL 0.5 mg/dL (0.2-1)
[2021-11-12 15:41] LABS: HIV INTERPRETATION NEGATIVE (NEGATIVE)
[2021-11-12] MEDS ORDERED: cloNIDine HCL 0.1 MG TABLET PO ONE (20:56)
[2021-11-12] MEDS: THIAMINE HCL 100 MG TABLET (FP) PO SCH (22:55)
[2021-11-12] MEDS: MELATONIN 5 MG TABLETS PO SCH (22:55)
[2021-11-13] MEDS ORDERED: chlordiazePOXIDE HCL 10 MG CAPSULE PO ONE (05:00)
[2021-11-13] MEDS: hydrOXYzine PAMOATE 25 MG CAPSULE (FP) PO SCH (07:26)
[2021-11-13 09:09] VITALS: BP 104/54; PULSE 53; TEMP 96.4
== END 2021-11-13 10:04 | disposition home or self-care (01) | DRG 774 ==
LOC: SUATTDRO 11:06 → YASAS 11:06 → Y3N 16:23
PROVIDERS: ADMIT Allergy & Immunology; ATTEND Surgery
PROC: HZ2ZZZZ Detoxification Services for Substance Abuse Treatment (ICD-10-PCS; principal; 2021-11-08)
DX: F10.230 Alcohol dependence with withdrawal, uncomplicated (principal); F14.20 Cocaine dependence, uncomplicated; F12.20 Cannabis dependence, uncomplicated; F17.210 Nicotine dependence, cigarettes, uncomplicated; G47.00 Insomnia, unspecified; R03.0 Elevated blood-pressure reading, without diagnosis of hypertension; Z88.0 Allergy status to penicillin; Z91.018 Allergy to other foods
CPT/HCPCS: 36415; 80053; 85027; 86780; 87389; C9803-CS; J0735; U0003; U0005

== ENCOUNTER 2022-01-09 14:43 | Inpatient (IN) | payer OTHER ==
[2022-01-09 15:28] VITALS: BMI 32.5
[2022-01-09] MEDS ORDERED: guaiFENesin 200 MG/10 ML 10 ML UNIT-DOSE CUPS PO PRN (16:50)
[2022-01-09] MEDS ORDERED: BENZOCAINE/MENTHOL (CHLORASEPTIC ) LOZENGE MM PRN (16:50)
[2022-01-09] MEDS ORDERED: ACETAMINOPHEN 325 MG TABLET (FP) PO PRN ×2 (16:50)
[2022-01-09] MEDS ORDERED: MAG HYDROX/AL HYDROX/SIMETH 30 ML UNIT-DOSE CUP PO PRN (16:50)
[2022-01-09] MEDS ORDERED: MAGNESIUM CITRATE 300 ML BOTTLE PO PRN (16:50)
[2022-01-09] MEDS ORDERED: LOPERAMIDE HCL 2 MG CAPSULE PO PRN (16:50)
[2022-01-09] MEDS ORDERED: DICYCLOMINE HCL 10 MG CAPSULE PO PRN (16:50)
[2022-01-09] MEDS ORDERED: MAGNESIUM HYDROX 2400MG/30ML ORAL SUSPENSION 30 ML CUP PO PRN (16:50)
[2022-01-09] MEDS ORDERED: BISMUTH SUBSALICYLATE 524 MG/30 ML PO PRN (16:50)
[2022-01-09] MEDS ORDERED: IBUPROFEN 600 MG TABLET (FP) PO PRN (16:50)
[2022-01-09] MEDS ORDERED: IBUPROFEN 400 MG TABLET (FP) PO PRN (16:50)
[2022-01-09] MEDS ORDERED: ONDANSETRON *ODT* 4 MG TABLET SL PRN (16:50)
[2022-01-09] MEDS ORDERED: P-EPHED 60MG/TRIPROLIDI 2.5MG TABLET PO PRN (16:50)
[2022-01-09] MEDS: SELENIUM SULFIDE 2.5% LOTION 4 OZ. TP SCH (19:56)
[2022-01-09] MEDS: MELATONIN 5 MG TABLETS PO PRN (22:40)
[2022-01-09] MEDS: THIAMINE HCL 100 MG TABLET (FP) PO SCH (22:40)
[2022-01-10] MEDS: SELENIUM SULFIDE 2.5% LOTION 4 OZ. TP SCH (10:35)
[2022-01-10] MEDS: PRENATAL VITAMINS W/ FOLIC ACID TABLET (FP) PO SCH ×2 (10:35→11:18)
[2022-01-10] MEDS: hydrOXYzine PAMOATE 25 MG CAPSULE (FP) PO PRN ×2 (11:29→19:12)
[2022-01-10] MEDS: chlordiazePOXIDE HCL 25 MG CAPSULE PO SCH ×3 (12:18→22:28)
[2022-01-10 12:42] LABS: HEMOGLOBIN 13.6 GM/dL (11.7-16.9); MCHC 33.1 g/dl (32.0-35.9); MEAN CELL VOLUME 90.6 fl (80-96); MEAN PLT VOLUME 8.2 fl (7.5-11.1); PLATELET COUNT 302 10^3/uL (134-434); RBC 4.53 M/mm3 (4.00-5.60); RDW 15.3 % (11.9-15.9); WHITE BLOOD COUNT 4.1 K/mm3 (4.0-10.0)
[2022-01-10 12:51] LABS: CALCIUM 8.5 mg/dL (8.5-10.1)
[2022-01-10 12:52] LABS: ALBUMIN 3.4 g/dl (3.4-5.0); BLOOD UREA NITROGEN 9.3 mg/dL (7-18)
[2022-01-10 12:55] LABS: CREATININE 0.9 mg/dL (0.55-1.3)
[2022-01-10 12:57] LABS: BILIRUBIN,TOTAL 1.1 mg/dL (0.2-1); TOT PROT 6.5 g/dl (6.4-8.2)
[2022-01-10] MEDS: chlordiazePOXIDE HCL 25 MG CAPSULE PO PRN (19:11)
[2022-01-10] MEDS: METHOCARBAMOL 500 MG TABLET PO PRN (19:11)
[2022-01-10] MEDS: MELATONIN 5 MG TABLETS PO PRN (22:28)
[2022-01-10] MEDS: THIAMINE HCL 100 MG TABLET (FP) PO SCH (22:28)
[2022-01-11] MEDS: chlordiazePOXIDE HCL 10 MG CAPSULE PO SCH ×5 (06:23→22:14)
[2022-01-11] MEDS: SELENIUM SULFIDE 2.5% LOTION 4 OZ. TP SCH (10:39)
[2022-01-11] MEDS: PRENATAL VITAMINS W/ FOLIC ACID TABLET (FP) PO SCH ×2 (10:39→10:52)
[2022-01-11] MEDS: hydrOXYzine PAMOATE 25 MG CAPSULE (FP) PO PRN ×3 (10:53→22:14)
[2022-01-11] MEDS: FLUOCINONIDE 0.05% CREAM (60 GM TUBE) TP SCH ×2 (14:04→22:15)
[2022-01-11 21:44] VITALS: RESP 18
[2022-01-11] MEDS: MELATONIN 5 MG TABLETS PO PRN (22:14)
[2022-01-11] MEDS: THIAMINE HCL 100 MG TABLET (FP) PO SCH (22:14)
[2022-01-12] MEDS: chlordiazePOXIDE HCL 10 MG CAPSULE PO SCH ×2 (06:53→16:42)
[2022-01-12] MEDS: PRENATAL VITAMINS W/ FOLIC ACID TABLET (FP) PO SCH (10:30)
[2022-01-12] MEDS: hydrOXYzine PAMOATE 25 MG CAPSULE (FP) PO PRN ×3 (10:30→22:00)
[2022-01-12] MEDS: SELENIUM SULFIDE 2.5% LOTION 4 OZ. TP SCH (10:30)
[2022-01-12] MEDS: FLUOCINONIDE 0.05% CREAM (60 GM TUBE) TP SCH ×2 (10:30→21:59)
[2022-01-12] MEDS: METHOCARBAMOL 500 MG TABLET PO PRN (10:33)
[2022-01-12 17:10] VITALS: TEMP 97.1
[2022-01-12 21:18] VITALS: BP 114/72; PULSE 73
[2022-01-12] MEDS: chlordiazePOXIDE HCL 25 MG CAPSULE PO PRN (21:59)
[2022-01-12] MEDS: MELATONIN 5 MG TABLETS PO PRN (21:59)
[2022-01-12] MEDS: THIAMINE HCL 100 MG TABLET (FP) PO SCH (21:59)
[2022-01-13] MEDS ORDERED: chlordiazePOXIDE HCL 10 MG CAPSULE PO PRN
[2022-01-13] MEDS ORDERED: chlordiazePOXIDE HCL 10 MG CAPSULE PO ONE (05:00)
== END 2022-01-13 09:30 | disposition home or self-care (01) | DRG 774 ==
LOC: YASAS 14:43 → Y3N 16:16 → UNDOADMIN 16:16
PROVIDERS: ADMIT Allergy & Immunology; ATTEND Surgery
PROC: HZ2ZZZZ Detoxification Services for Substance Abuse Treatment (ICD-10-PCS; principal; 2022-01-09)
DX: F10.230 Alcohol dependence with withdrawal, uncomplicated (principal); F14.20 Cocaine dependence, uncomplicated; F12.20 Cannabis dependence, uncomplicated; D57.3 Sickle-cell trait; Z87.891 Personal history of nicotine dependence; Z88.0 Allergy status to penicillin; Z91.014 Allergy to mammalian meats
CPT/HCPCS: 36415; 80053; 85027; 86780; C9803-CS; U0003; U0005

== ENCOUNTER 2022-03-01 12:48 | Inpatient (IN) | payer OTHER ==
[2022-03-01 13:48] VITALS: BMI 35.4
[2022-03-01] MEDS ORDERED: MAGNESIUM CITRATE 300 ML BOTTLE PO PRN (15:20)
[2022-03-01] MEDS ORDERED: LOPERAMIDE HCL 2 MG CAPSULE PO PRN (15:20)
[2022-03-01] MEDS ORDERED: BISMUTH SUBSALICYLATE 524 MG/30 ML PO PRN (15:20)
[2022-03-01] MEDS ORDERED: MAGNESIUM HYDROX 2400MG/30ML ORAL SUSPENSION 30 ML CUP PO PRN (15:20)
[2022-03-01] MEDS ORDERED: IBUPROFEN 400 MG TABLET (FP) PO PRN (15:20)
[2022-03-01] MEDS ORDERED: MAG HYDROX/AL HYDROX/SIMETH 30 ML UNIT-DOSE CUP PO PRN (15:20)
[2022-03-01] MEDS ORDERED: ACETAMINOPHEN 325 MG TABLET (FP) PO PRN ×2 (15:20)
[2022-03-01] MEDS ORDERED: ONDANSETRON *ODT* 4 MG TABLET SL PRN (15:20)
[2022-03-01] MEDS ORDERED: hydrOXYzine PAMOATE 25 MG CAPSULE (FP) PO PRN (15:20)
[2022-03-01] MEDS ORDERED: DICYCLOMINE HCL 10 MG CAPSULE PO PRN (15:20)
[2022-03-01] MEDS ORDERED: NICOTINE 10 MG CARTRIDGE (INHALER) IH PRN (15:20)
[2022-03-01] MEDS ORDERED: IBUPROFEN 600 MG TABLET (FP) PO PRN (15:20)
[2022-03-01] MEDS ORDERED: METHOCARBAMOL 500 MG TABLET PO PRN (15:20)
[2022-03-01] MEDS ORDERED: NALOXONE HCL (KLOXXADO) 8 MG SPRAY NS PRN (15:20)
[2022-03-01] MEDS ORDERED: BENZOCAINE/MENTHOL (CHLORASEPTIC ) LOZENGE MM PRN (15:20)
[2022-03-01] MEDS: FLUOCINONIDE 0.05% TOP OINT (15 GM TUBE) TP SCH (20:23)
[2022-03-01] MEDS: SELENIUM SULFIDE 2.25% 180 ML SHAMPOO TP SCH (20:23)
[2022-03-01] MEDS: MELATONIN 5 MG TABLETS PO SCH (22:28)
[2022-03-01] MEDS: THIAMINE HCL 100 MG TABLET (FP) PO SCH (22:28)
[2022-03-02] MEDS ORDERED: chlordiazePOXIDE HCL 25 MG CAPSULE PO PRN (09:51)
[2022-03-02] MEDS: PRENATAL VITAMINS W/ FOLIC ACID TABLET (FP) PO SCH (10:44)
[2022-03-02] MEDS: FLUOCINONIDE 0.05% TOP OINT (15 GM TUBE) TP SCH (10:44)
[2022-03-02] MEDS: chlordiazePOXIDE HCL 25 MG CAPSULE PO SCH ×3 (10:45→22:44)
[2022-03-02] MEDS: SELENIUM SULFIDE 2.25% 180 ML SHAMPOO TP SCH (10:45)
[2022-03-02 11:05] LABS: HEMATOCRIT 41.7 % (35.4-49); HEMOGLOBIN 13.6 GM/dL (11.7-16.9); MCH 29.7 pg (25.7-33.7); MCHC 32.7 g/dl (32.0-35.9); MEAN CELL VOLUME 90.8 fl (80-96); MEAN PLT VOLUME 8.2 fl (7.5-11.1); PLATELET COUNT 368 10^3/uL (134-434); RBC 4.59 M/mm3 (4.00-5.60); RDW 15.5 % (11.9-15.9); WHITE BLOOD COUNT 5.6 K/mm3 (4.0-10.0)
[2022-03-02 11:09] LABS: ALBUMIN 3.5 g/dl (3.4-5.0); CALCIUM 9.1 mg/dL (8.5-10.1)
[2022-03-02 11:10] LABS: BLOOD UREA NITROGEN 12.2 mg/dL (7-18)
[2022-03-02 11:14] LABS: BILIRUBIN,TOTAL 0.6 mg/dL (0.2-1); TOT PROT 6.4 g/dl (6.4-8.2)
[2022-03-02] MEDS: MELATONIN 5 MG TABLETS PO SCH (22:45)
[2022-03-02] MEDS: THIAMINE HCL 100 MG TABLET (FP) PO SCH (22:45)
[2022-03-03] MEDS: chlordiazePOXIDE HCL 25 MG CAPSULE PO SCH ×4 (06:26→22:29)
[2022-03-03] MEDS: PRENATAL VITAMINS W/ FOLIC ACID TABLET (FP) PO SCH (10:44)
[2022-03-03] MEDS: FLUOCINONIDE 0.05% TOP OINT (15 GM TUBE) TP SCH (10:44)
[2022-03-03] MEDS: SELENIUM SULFIDE 2.25% 180 ML SHAMPOO TP SCH (10:44)
[2022-03-03] MEDS: THIAMINE HCL 100 MG TABLET (FP) PO SCH (22:29)
[2022-03-03] MEDS: MELATONIN 5 MG TABLETS PO SCH (22:31)
[2022-03-04] MEDS: chlordiazePOXIDE HCL 25 MG CAPSULE PO SCH ×4 (06:18→22:05)
[2022-03-04] MEDS: PRENATAL VITAMINS W/ FOLIC ACID TABLET (FP) PO SCH (10:47)
[2022-03-04] MEDS: FLUOCINONIDE 0.05% TOP OINT (15 GM TUBE) TP SCH (10:48)
[2022-03-04] MEDS: SELENIUM SULFIDE 2.25% 180 ML SHAMPOO TP SCH (10:48)
[2022-03-04 17:39] LABS: PH,URINE 5.5 (5.0-8.0); URINE APPEARANCE CLEAR; URINE BILIRUBIN NEGATIVE (NEGATIVE); URINE COLOR YELLOW; URINE GLUCOSE (UA) NEGATIVE (NEGATIVE); URINE KETONE NEGATIVE (NEGATIVE); URINE LEUK ESTERASE NEGATIVE (NEGATIVE); URINE NITRITE NEGATIVE (NEGATIVE); URINE PROTEIN NEGATIVE (NEGATIVE); URINE UROBILINOGEN 0.2 mg/dL (0.2-1.0)
[2022-03-04 20:41] VITALS: RESP 18
[2022-03-04] MEDS ORDERED: QUEtiapine FUMARATE 50 MG TABLET PO PRN (22:00)
[2022-03-04] MEDS ORDERED: QUEtiapine FUMARATE 50 MG TABLET PO SCH (22:00)
[2022-03-04] MEDS: THIAMINE HCL 100 MG TABLET (FP) PO SCH (22:05)
[2022-03-05] MEDS ORDERED: chlordiazePOXIDE HCL 10 MG CAPSULE PO PRN
[2022-03-05] MEDS: chlordiazePOXIDE HCL 10 MG CAPSULE PO SCH ×2 (06:32→11:01)
[2022-03-05 09:18] VITALS: BP 100/53; PULSE 77; TEMP 98
[2022-03-05] MEDS: FLUOCINONIDE 0.05% TOP OINT (15 GM TUBE) TP SCH (11:00)
[2022-03-05] MEDS: SELENIUM SULFIDE 2.25% 180 ML SHAMPOO TP SCH (11:00)
[2022-03-05] MEDS: PRENATAL VITAMINS W/ FOLIC ACID TABLET (FP) PO SCH (11:00)
[2022-03-06] MEDS ORDERED: chlordiazePOXIDE HCL 10 MG CAPSULE PO SCH (05:00)
[2022-03-07] MEDS ORDERED: chlordiazePOXIDE HCL 10 MG CAPSULE PO ONE (05:00)
== END 2022-03-05 10:53 | disposition home or self-care (01) | DRG 774 ==
LOC: YASAS 12:48 → Y3N 18:00
PROVIDERS: ADMIT Allergy & Immunology; ATTEND Surgery
PROC: HZ2ZZZZ Detoxification Services for Substance Abuse Treatment (ICD-10-PCS; principal; 2022-03-01)
DX: F14.20 Cocaine dependence, uncomplicated (principal); F10.230 Alcohol dependence with withdrawal, uncomplicated; F12.20 Cannabis dependence, uncomplicated; F17.210 Nicotine dependence, cigarettes, uncomplicated; F19.280 Other psychoactive substance dependence with psychoactive substance-induced anxiety disorder; F19.282 Other psychoactive substance dependence with psychoactive substance-induced sleep disorder; F19.24 Other psychoactive substance dependence with psychoactive substance-induced mood disorder; Z21 Asymptomatic human immunodeficiency virus [HIV] infection status; G47.00 Insomnia, unspecified; D57.3 Sickle-cell trait; L21.0 Seborrhea capitis; Z20.822 Contact with and (suspected) exposure to COVID-19; Z88.0 Allergy status to penicillin; Z91.014 Allergy to mammalian meats
CPT/HCPCS: 36415; 80053; 81003; 85027; 86780; C9803-CS; U0003; U0005

== ENCOUNTER 2023-03-17 08:36 | Inpatient (IN) | payer OTHER ==
[2023-03-17 09:04] VITALS: BMI 32.5
[2023-03-17] MEDS ORDERED: METHOCARBAMOL 500 MG TABLET PO PRN (09:51)
[2023-03-17] MEDS ORDERED: MAGNESIUM HYDROX 2400MG/30ML ORAL SUSPENSION 30 ML CUP PO PRN (09:51)
[2023-03-17] MEDS ORDERED: guaiFENesin 600 MG TABLET.ER (FP) PO PRN (09:51)
[2023-03-17] MEDS ORDERED: P-EPHED 60MG/TRIPROLIDI 2.5MG TABLET PO PRN (09:51)
[2023-03-17] MEDS ORDERED: LOPERAMIDE HCL 2 MG CAPSULE PO PRN (09:51)
[2023-03-17] MEDS ORDERED: hydrOXYzine PAMOATE 25 MG CAPSULE (FP) PO PRN (09:51)
[2023-03-17] MEDS ORDERED: BENZOCAINE/MENTHOL (CHLORASEPTIC ) LOZENGE MM PRN (09:51)
[2023-03-17] MEDS ORDERED: DICYCLOMINE HCL 10 MG CAPSULE PO PRN (09:51)
[2023-03-17] MEDS ORDERED: POLYETHYLENE GLYCOL (HEALTHYLAX) 3350 17 GM PACKET PO PRN (09:51)
[2023-03-17] MEDS ORDERED: ACETAMINOPHEN 325 MG TABLET (FP) PO PRN (09:51)
[2023-03-17] MEDS ORDERED: IBUPROFEN 600 MG TABLET (FP) PO PRN (09:51)
[2023-03-17] MEDS ORDERED: MAG HYDROX/AL HYDROX/SIMETH 30 ML UNIT-DOSE CUP PO PRN (09:51)
[2023-03-17] MEDS ORDERED: ONDANSETRON *ODT* 4 MG TABLET SL PRN (09:51)
[2023-03-17] MEDS ORDERED: BENZONATATE 200 MG CAPSULE PO PRN (09:51)
[2023-03-17] MEDS ORDERED: IBUPROFEN 400 MG TABLET (FP) PO PRN (09:51)
[2023-03-17] MEDS ORDERED: PRENATAL VITAMINS W/ FOLIC ACID TABLET (FP) PO ONE (10:20)
[2023-03-17] MEDS: PRENATAL VITAMINS W/ FOLIC ACID TABLET (FP) PO SCH (10:22)
[2023-03-17] MEDS: MELATONIN 5 MG TABLETS PO SCH (23:07)
[2023-03-17] MEDS: THIAMINE HCL 100 MG TABLET (FP) PO SCH (23:07)
[2023-03-18] MEDS ORDERED: chlordiazePOXIDE HCL 25 MG CAPSULE PO PRN (08:58)
[2023-03-18] MEDS: chlordiazePOXIDE HCL 25 MG CAPSULE PO SCH ×3 (10:23→22:30)
[2023-03-18] MEDS: PRENATAL VITAMINS W/ FOLIC ACID TABLET (FP) PO SCH (10:23)
[2023-03-18] MEDS: SELENIUM SULFIDE 2.5% LOTION 4 OZ. TP SCH (12:00)
[2023-03-18] MEDS: FLUOCINONIDE 0.05% TOP OINT (15 GM TUBE) TP SCH (12:00)
[2023-03-18 12:25] LABS: HEMATOCRIT 44.3 % (35.4-49); HEMOGLOBIN 14.6 GM/dL (11.7-16.9); MCH 31.2 pg (25.7-33.7); MCHC 32.8 g/dl (32.0-35.9); MEAN PLT VOLUME 8.1 fl (7.5-11.1); PLATELET COUNT 280 10^3/uL (134-434); RBC 4.66 M/mm3 (4.00-5.60); RDW 14.7 % (11.9-15.9); WHITE BLOOD COUNT 5.8 K/mm3 (4.0-10.0)
[2023-03-18 12:34] LABS: CALCIUM 9.5 mg/dL (8.5-10.1)
[2023-03-18 12:35] LABS: ALBUMIN 4.4 g/dl (3.4-5.0); BLOOD UREA NITROGEN 9.8 mg/dL (7-18)
[2023-03-18 12:38] LABS: CREATININE 1.1 mg/dL (0.55-1.3)
[2023-03-18 12:39] LABS: BILIRUBIN,TOTAL 1.9 mg/dL (0.2-1); TOT PROT 7.9 g/dl (6.4-8.2)
[2023-03-18] MEDS: BISMUTH SUBSALICYLATE 262 MG/15 ML BTL PO PRN ×2 (16:49→22:31)
[2023-03-18] MEDS: THIAMINE HCL 100 MG TABLET (FP) PO SCH (22:28)
[2023-03-18] MEDS: MELATONIN 5 MG TABLETS PO SCH (22:28)
[2023-03-19] MEDS: chlordiazePOXIDE HCL 25 MG CAPSULE PO SCH ×2 (05:42→11:16)
[2023-03-19] MEDS: BISMUTH SUBSALICYLATE 262 MG/15 ML BTL PO PRN (08:46)
[2023-03-19 08:54] VITALS: BP 107/63; PULSE 64; RESP 20; TEMP 98
[2023-03-19] MEDS: FLUOCINONIDE 0.05% TOP OINT (15 GM TUBE) TP SCH (10:00)
[2023-03-19] MEDS: SELENIUM SULFIDE 2.5% LOTION 4 OZ. TP SCH (10:00)
[2023-03-19] MEDS: PRENATAL VITAMINS W/ FOLIC ACID TABLET (FP) PO SCH (11:12)
[2023-03-20] MEDS ORDERED: chlordiazePOXIDE HCL 25 MG CAPSULE PO SCH (05:00)
[2023-03-21] MEDS ORDERED: chlordiazePOXIDE HCL 10 MG CAPSULE PO PRN
[2023-03-21] MEDS ORDERED: chlordiazePOXIDE HCL 10 MG CAPSULE PO SCH (05:00)
[2023-03-22] MEDS ORDERED: chlordiazePOXIDE HCL 10 MG CAPSULE PO SCH (05:00)
[2023-03-23] MEDS ORDERED: chlordiazePOXIDE HCL 10 MG CAPSULE PO ONE (05:00)
== END 2023-03-19 13:00 | disposition left against medical advice (07) | DRG 770 ==
LOC: YASAS 08:36 → Y3N 10:18
PROVIDERS: ADMIT Allergy & Immunology; ATTEND Surgery
PROC: HZ2ZZZZ Detoxification Services for Substance Abuse Treatment (ICD-10-PCS; principal; 2023-03-17)
DX: F10.230 Alcohol dependence with withdrawal, uncomplicated (principal); F14.20 Cocaine dependence, uncomplicated; F12.20 Cannabis dependence, uncomplicated; F17.210 Nicotine dependence, cigarettes, uncomplicated; F19.24 Other psychoactive substance dependence with psychoactive substance-induced mood disorder; G47.00 Insomnia, unspecified; L30.9 Dermatitis, unspecified; M54.50 Low back pain, unspecified; G89.29 Other chronic pain; Z20.822 Contact with and (suspected) exposure to COVID-19; Z88.0 Allergy status to penicillin
CPT/HCPCS: 36415; 80053; 80307; 85027; 86780; 87635; 87811

== ENCOUNTER 2023-11-09 16:28 | Inpatient (IN) | payer OTHER ==
[2023-11-09 17:19] VITALS: BMI 32.5
[2023-11-09] MEDS ORDERED: ACETAMINOPHEN 325 MG TABLET (FP) PO PRN (17:54)
[2023-11-09] MEDS ORDERED: IBUPROFEN 400 MG TABLET (FP) PO PRN (17:54)
[2023-11-09] MEDS ORDERED: POLYETHYLENE GLYCOL (HEALTHYLAX) 3350 17 GM PACKET PO PRN (17:54)
[2023-11-09] MEDS ORDERED: MAGNESIUM HYDROX 2400MG/30ML ORAL SUSPENSION 30 ML CUP PO PRN (17:54)
[2023-11-09] MEDS ORDERED: NICOTINE POLACRILEX 2 MG LOZENGE BC PRN (17:54)
[2023-11-09] MEDS ORDERED: BENZONATATE 200 MG CAPSULE PO PRN (17:54)
[2023-11-09] MEDS ORDERED: ONDANSETRON *ODT* 4 MG TABLET SL PRN (17:54)
[2023-11-09] MEDS ORDERED: IBUPROFEN 600 MG TABLET (FP) PO PRN (17:54)
[2023-11-09] MEDS ORDERED: BENZOCAINE/MENTHOL (CHLORASEPTIC ) LOZENGE MM PRN (17:54)
[2023-11-09] MEDS ORDERED: hydrOXYzine PAMOATE 25 MG CAPSULE (FP) PO PRN (17:54)
[2023-11-09] MEDS ORDERED: METHOCARBAMOL 500 MG TABLET PO PRN (17:54)
[2023-11-09] MEDS ORDERED: guaiFENesin 600 MG TABLET.ER (FP) PO PRN (17:54)
[2023-11-09] MEDS ORDERED: NICOTINE POLACRILEX 2 MG GUM BUC PRN (17:54)
[2023-11-09] MEDS ORDERED: DICYCLOMINE HCL 10 MG CAPSULE PO PRN (17:54)
[2023-11-09] MEDS ORDERED: LOPERAMIDE HCL 2 MG CAPSULE PO PRN (17:54)
[2023-11-09] MEDS ORDERED: MAG HYDROX/AL HYDROX/SIMETH 30 ML UNIT-DOSE CUP PO PRN (17:54)
[2023-11-09] MEDS: THIAMINE 100 MG TABLET PO SCH (22:19)
[2023-11-09] MEDS: MELATONIN 5 MG TABLETS PO SCH (22:19)
[2023-11-09] MEDS: SELENIUM SULFIDE 2.25% 180 ML SHAMPOO TP SCH (23:34)
[2023-11-10] MEDS ORDERED: chlordiazePOXIDE HCL 25 MG CAPSULE PO PRN (10:03)
[2023-11-10] MEDS: FLUOCINONIDE 0.05% TOP OINT (15 GM TUBE) TP SCH (10:22)
[2023-11-10] MEDS: SELENIUM SULFIDE 2.25% 180 ML SHAMPOO TP SCH (10:23)
[2023-11-10] MEDS: PRENATAL VITAMINS W/ FOLIC ACID TABLET (FP) PO SCH (10:24)
[2023-11-10] MEDS: chlordiazePOXIDE HCL 25 MG CAPSULE PO SCH (10:25)
[2023-11-10 11:36] LABS: HEMATOCRIT 40.9 % (35.4-49); HEMOGLOBIN 14.1 GM/dL (11.7-16.9); MCH 31.8 pg (25.7-33.7); MCHC 34.6 g/dl (32.0-35.9); MEAN CELL VOLUME 91.8 fl (80-96); MEAN PLT VOLUME 7.9 fl (7.5-11.1); PLATELET COUNT 290 10^3/uL (134-434); RBC 4.45 M/mm3 (4.00-5.60); RDW 14.6 % (11.9-15.9); WHITE BLOOD COUNT 4.4 K/mm3 (4.0-10.0)
[2023-11-10 11:42] LABS: POTASSIUM 4.5 mmol/L (3.5-5.1)
[2023-11-10 11:50] LABS: ALBUMIN 3.6 g/dl (3.4-5.0); BLOOD UREA NITROGEN 16.3 mg/dL (7-18); CALCIUM 8.6 mg/dL (8.5-10.1)
[2023-11-10 11:53] LABS: CREATININE 0.9 mg/dL (0.55-1.3)
[2023-11-10 11:55] LABS: BILIRUBIN,TOTAL 1.6 mg/dL (0.2-1); TOT PROT 6.6 g/dl (6.4-8.2)
[2023-11-11] MEDS: BISMUTH SUBSALICYLATE 524 MG/30 ML PO PRN (14:52)
[2023-11-12] MEDS: chlordiazePOXIDE HCL 25 MG CAPSULE PO SCH (05:51)
[2023-11-12 06:12] VITALS: BP 104/52; PULSE 61; RESP 17; TEMP 98.2
[2023-11-13] MEDS ORDERED: chlordiazePOXIDE HCL 10 MG CAPSULE PO PRN
[2023-11-13] MEDS ORDERED: chlordiazePOXIDE HCL 10 MG CAPSULE PO SCH (05:00)
[2023-11-14] MEDS ORDERED: chlordiazePOXIDE HCL 10 MG CAPSULE PO SCH (05:00)
[2023-11-15] MEDS ORDERED: chlordiazePOXIDE HCL 10 MG CAPSULE PO ONE (05:00)
== END 2023-11-12 07:47 | disposition left against medical advice (07) | DRG 770 ==
LOC: YASAS 16:28 → Y3N 18:14
PROVIDERS: ADMIT Allergy & Immunology; ATTEND Surgery
PROC: HZ2ZZZZ Detoxification Services for Substance Abuse Treatment (ICD-10-PCS; principal; 2023-11-09)
DX: F10.230 Alcohol dependence with withdrawal, uncomplicated (principal); F14.20 Cocaine dependence, uncomplicated; F12.20 Cannabis dependence, uncomplicated; L30.9 Dermatitis, unspecified; M54.50 Low back pain, unspecified; G89.29 Other chronic pain; Z87.891 Personal history of nicotine dependence; Z88.0 Allergy status to penicillin
CPT/HCPCS: 36415; 80053; 80305; 85027; 86780; 93005; 93010

== ENCOUNTER 2024-01-19 11:05 | Inpatient (IN) | payer OTHER ==
[2024-01-19 11:35] VITALS: BMI 33.2
[2024-01-19] MEDS ORDERED: ONDANSETRON *ODT* 4 MG TABLET SL PRN (13:33)
[2024-01-19] MEDS ORDERED: guaiFENesin 600 MG TABLET.ER (FP) PO PRN (13:33)
[2024-01-19] MEDS ORDERED: NALOXONE HCL 0.4 MG/ML VIAL IM PRN (13:33)
[2024-01-19] MEDS ORDERED: LOPERAMIDE HCL 2 MG CAPSULE PO PRN (13:33)
[2024-01-19] MEDS ORDERED: POLYETHYLENE GLYCOL (HEALTHYLAX) 3350 17 GM PACKET PO PRN (13:33)
[2024-01-19] MEDS ORDERED: IBUPROFEN 400 MG TABLET (FP) PO PRN (13:33)
[2024-01-19] MEDS ORDERED: MAGNESIUM HYDROX 2400MG/30ML ORAL SUSPENSION 30 ML CUP PO PRN (13:33)
[2024-01-19] MEDS ORDERED: BENZOCAINE/MENTHOL (CHLORASEPTIC ) LOZENGE MM PRN (13:33)
[2024-01-19] MEDS ORDERED: DICYCLOMINE HCL 10 MG CAPSULE PO PRN (13:33)
[2024-01-19] MEDS ORDERED: BENZONATATE 200 MG CAPSULE PO PRN (13:33)
[2024-01-19] MEDS ORDERED: NALOXONE (NARCAN) HCL 4 MG/0.1 ML SPRAY NS PRN (13:33)
[2024-01-19] MEDS ORDERED: MAG HYDROX/AL HYDROX/SIMETH 30 ML UNIT-DOSE CUP PO PRN (13:33)
[2024-01-19] MEDS ORDERED: NICOTINE 14 MG/24 HOURS TOPICAL PATCH TD ONE (14:06)
[2024-01-19] MEDS ORDERED: chlordiazePOXIDE HCL 25 MG CAPSULE ONE (14:06)
[2024-01-19] MEDS ORDERED: PRENATAL VITAMINS W/ FOLIC ACID TABLET (FP) PO ONE (14:07)
[2024-01-19] MEDS: chlordiazePOXIDE HCL 25 MG CAPSULE PO ONE (14:13)
[2024-01-19] MEDS: PRENATAL VITAMINS W/ FOLIC ACID TABLET (FP) PO SCH (14:13)
[2024-01-19] MEDS: NICOTINE 14 MG/24 HOURS TOPICAL PATCH TD SCH (14:13)
[2024-01-19] MEDS: chlordiazePOXIDE HCL 25 MG CAPSULE PO SCH (17:44)
[2024-01-19] MEDS: SELENIUM SULFIDE 2.25% 180 ML SHAMPOO TP SCH (19:23)
[2024-01-19] MEDS: FLUOCINONIDE 0.05% TOP OINT (60 GM TUBE) TP SCH (19:23)
[2024-01-19] MEDS: BISMUTH SUBSALICYLATE 524 MG/30 ML PO PRN (20:48)
[2024-01-19] MEDS: MELATONIN 5 MG TABLETS PO SCH (22:20)
[2024-01-19] MEDS: THIAMINE 100 MG TABLET PO SCH (22:20)
[2024-01-20 15:59] LABS: HEMATOCRIT 42.7 % (35.4-49); MCH 30.5 pg (25.7-33.7); MCHC 32.9 g/dl (32.0-35.9); MEAN CELL VOLUME 92.6 fl (80-96); MEAN PLT VOLUME 8.4 fl (7.5-11.1); PLATELET COUNT 250 10^3/uL (134-434); RBC 4.61 M/mm3 (4.00-5.60); WHITE BLOOD COUNT 5.3 K/mm3 (4.0-10.0)
[2024-01-20 16:03] LABS: CHLORIDE 107 mmol/L (98-107); POTASSIUM 4.1 mmol/L (3.5-5.1); SODIUM 143 mmol/L (136-145)
[2024-01-20 16:08] LABS: CALCIUM 8.9 mg/dL (8.5-10.1)
[2024-01-20 16:09] LABS: ALBUMIN 3.6 g/dl (3.4-5.0); ANION GAP 8 mmol/L (4-13); BLOOD UREA NITROGEN 8.3 mg/dL (7-18); CO2 28 mmol/L (21-32); GLUCOSE,RANDOM 84 mg/dL (74-106)
[2024-01-20 16:11] LABS: CREATININE 0.9 mg/dL (0.55-1.3); SGOT/AST 20 U/L (15-37); SGPT/ALT 16 U/L (13-61)
[2024-01-20 16:13] LABS: BILIRUBIN,TOTAL 1.7 mg/dL (0.2-1); TOT PROT 6.7 g/dl (6.4-8.2)
[2024-01-20 16:14] LABS: ALK PHOS 67 U/L (45-117)
[2024-01-21] MEDS: chlordiazePOXIDE HCL 25 MG CAPSULE PO SCH (06:00)
[2024-01-21] MEDS: SELENIUM SULFIDE 2.5% LOTION 4 OZ. TP SCH (10:09)
[2024-01-21] MEDS: IBUPROFEN 600 MG TABLET (FP) PO PRN (12:01)
[2024-01-21] MEDS: chlordiazePOXIDE HCL 25 MG CAPSULE PO PRN (12:01)
[2024-01-22] MEDS ORDERED: chlordiazePOXIDE HCL 10 MG CAPSULE PO PRN
[2024-01-22] MEDS: chlordiazePOXIDE HCL 10 MG CAPSULE PO SCH (06:00)
[2024-01-22] MEDS: ACETAMINOPHEN 325 MG TABLET (FP) PO PRN (16:32)
[2024-01-22] MEDS: hydrOXYzine PAMOATE 25 MG CAPSULE (FP) PO PRN (22:16)
[2024-01-23] MEDS: chlordiazePOXIDE HCL 10 MG CAPSULE PO SCH (05:46)
[2024-01-24] MEDS: chlordiazePOXIDE HCL 10 MG CAPSULE PO ONE (05:43)
[2024-01-24] MEDS: METHOCARBAMOL 500 MG TABLET PO PRN (14:14)
[2024-01-24] MEDS ORDERED: HYDROCORTISONE 0.5% TOPICAL OINTMENT TUBE TP PRN (14:14)
[2024-01-24] MEDS: HYDROCORTISONE 1% TOPICAL OINT 30 GM TUBE TP PRN (18:03)
[2024-01-25 08:47] VITALS: PULSE 60
[2024-01-25 12:52] VITALS: BP 106/60; RESP 16; TEMP 98
== END 2024-01-25 12:30 | disposition other institution (70) | DRG 774 ==
LOC: YASAS 11:05 → Y6N 14:09
PROVIDERS: ADMIT Allergy & Immunology; ATTEND Surgery
PROC: HZ2ZZZZ Detoxification Services for Substance Abuse Treatment (ICD-10-PCS; principal; 2024-01-19)
DX: F10.230 Alcohol dependence with withdrawal, uncomplicated (principal); F14.20 Cocaine dependence, uncomplicated; F12.20 Cannabis dependence, uncomplicated; F19.282 Other psychoactive substance dependence with psychoactive substance-induced sleep disorder; Z21 Asymptomatic human immunodeficiency virus [HIV] infection status; L21.8 Other seborrheic dermatitis; M54.50 Low back pain, unspecified; G89.29 Other chronic pain; Z87.891 Personal history of nicotine dependence; Z88.0 Allergy status to penicillin
CPT/HCPCS: 36415; 80053; 80305; 80307; 85027; 86780; 87811; 93005; 93010

== ENCOUNTER 2024-01-25 13:40 | Inpatient (IN) | payer OTHER ==
[2024-01-25] MEDS ORDERED: NALOXONE (NARCAN) HCL 4 MG/0.1 ML SPRAY NS PRN (15:57)
[2024-01-25] MEDS ORDERED: MAG HYDROX/AL HYDROX/SIMETH 30 ML UNIT-DOSE CUP PO PRN (15:57)
[2024-01-25] MEDS ORDERED: BENZOCAINE/MENTHOL (CHLORASEPTIC ) LOZENGE MM PRN (15:57)
[2024-01-25] MEDS ORDERED: LOPERAMIDE HCL 2 MG CAPSULE PO PRN (15:57)
[2024-01-25] MEDS ORDERED: MAGNESIUM HYDROX 2400MG/30ML ORAL SUSPENSION 30 ML CUP PO PRN (15:57)
[2024-01-25] MEDS ORDERED: IBUPROFEN 400 MG TABLET (FP) PO PRN (15:57)
[2024-01-25] MEDS ORDERED: NALOXONE HCL 0.4 MG/ML VIAL IM PRN (15:57)
[2024-01-25] MEDS ORDERED: POLYETHYLENE GLYCOL (HEALTHYLAX) 3350 17 GM PACKET PO PRN (15:57)
[2024-01-25] MEDS ORDERED: BENZONATATE 200 MG CAPSULE PO PRN (15:57)
[2024-01-25] MEDS ORDERED: guaiFENesin 600 MG TABLET.ER (FP) PO PRN (15:57)
[2024-01-25] MEDS: THIAMINE 100 MG TABLET PO SCH (21:02)
[2024-01-25] MEDS: MELATONIN 5 MG TABLETS PO SCH (21:03)
[2024-01-25] MEDS: hydrOXYzine PAMOATE 25 MG CAPSULE (FP) PO PRN (21:03)
[2024-01-26] MEDS: PRENATAL VITAMINS W/ FOLIC ACID TABLET (FP) PO SCH (10:31)
[2024-01-26 11:23] LABS: HEMATOCRIT 42.7 % (35.4-49); HEMOGLOBIN 14.3 GM/dL (11.7-16.9); MCH 31.1 pg (25.7-33.7); MCHC 33.6 g/dl (32.0-35.9); MEAN CELL VOLUME 92.6 fl (80-96); MEAN PLT VOLUME 7.9 fl (7.5-11.1); PLATELET COUNT 271 10^3/uL (134-434); RBC 4.62 M/mm3 (4.00-5.60); RDW 15.6 % (11.9-15.9); WHITE BLOOD COUNT 4.4 K/mm3 (4.0-10.0)
[2024-01-26 11:43] LABS: CHLORIDE 108 mmol/L (98-107); POTASSIUM 4.6 mmol/L (3.5-5.1); SODIUM 141 mmol/L (136-145)
[2024-01-26 11:50] LABS: CALCIUM 9.1 mg/dL (8.5-10.1)
[2024-01-26 11:51] LABS: ALBUMIN 3.8 g/dl (3.4-5.0); ANION GAP 4 mmol/L (4-13); CO2 30 mmol/L (21-32); GLUCOSE,RANDOM 89 mg/dL (74-106)
[2024-01-26] MEDS: BISMUTH SUBSALICYLATE 524 MG/30 ML PO PRN (11:51)
[2024-01-26 11:54] LABS: BILIRUBIN,TOTAL 0.5 mg/dL (0.2-1); CREATININE 0.9 mg/dL (0.55-1.3); SGOT/AST 13 U/L (15-37); SGPT/ALT 22 U/L (13-61)
[2024-01-26 11:55] LABS: ALK PHOS 63 U/L (45-117)
[2024-01-26 12:35] LABS: SYPHILIS W/ RPR CONF NON-REACTIVE (NONREACTIVE)
[2024-01-26] MEDS: ACETAMINOPHEN 325 MG TABLET (FP) PO PRN (13:36)
[2024-01-26] MEDS: SELENIUM SULFIDE 2.5% LOTION 4 OZ. TP PRN (13:37)
[2024-01-26] MEDS: FLUOCINONIDE 0.05% TOP OINT (60 GM TUBE) TP PRN (13:38)
[2024-01-26] MEDS: HYDROCORTISONE 1% TOPICAL OINT 30 GM TUBE TP PRN (13:38)
[2024-01-31] MEDS: IBUPROFEN 600 MG TABLET (FP) PO PRN (13:51)
[2024-02-02] MEDS: ASPIRIN 81 MG CHEWABLE TABLETS PO SCH (10:33)
[2024-02-05 07:17] VITALS: PULSE 60
[2024-02-07 07:10] VITALS: RESP 16
[2024-02-08 07:33] VITALS: BP 117/71; TEMP 97.4
== END 2024-02-08 07:59 | disposition home or self-care (01) | DRG 772 ==
LOC: YASAS 13:40 → Y3NR 13:41 → Y5N 17:23
PROVIDERS: ADMIT Psychiatry & Neurology Pain Medicine; ATTEND Psychiatry & Neurology Pain Medicine
PROC: HZ42ZZZ Group Counseling for Substance Abuse Treatment, Cognitive-Behavioral (ICD-10-PCS; principal; 2024-01-25)
DX: F10.20 Alcohol dependence, uncomplicated (principal); F14.20 Cocaine dependence, uncomplicated; F12.20 Cannabis dependence, uncomplicated; G47.00 Insomnia, unspecified; L21.9 Seborrheic dermatitis, unspecified; Z87.891 Personal history of nicotine dependence
CPT/HCPCS: 36415; 80053; 80307; 85027; 86780; 86803; 87811; 93005; 93010